=== PATIENT | female | born 1960 | race Caucasian/White ===

== ENCOUNTER 2023-04-26 12:34 | Outpatient (OUT) | payer OTHER, SELFPAY ==
--- NOTE | 2023-04-26 13:35 | P.CN_ITS ---
Consult Note: HPI Data of Consult Patient: new to practice Consult date: 04/26/23 Requesting Physician: Lucie Ham MD Primary Care Provider: ARIANE OLIVAS Consult Narrative Reason for consult: low back pain Narrative: this is a pleasant 62-year-old female who presents for evaluation. She has a long-standing history of low back pain that is worsened with standing and ambulation. She underwent a lumbar fusion greater than fifteen years ago, though she does not remember exactly which levels this was at. There is no recent imaging available for review. She engages in a course of provider directed home exercises, which she has completed for greater than three months. She also engages and chiropractic therapy. She has tried various medications, including Savella for her fibromyalgia, with limited relief. She otherwise denies adverse medication side effects or loss of bowel or bladder control. cc:: CC: Lucie Ham MD Review of Systems ROS Status of ROS 10 or more systems reviewed and unremarkable except as noted in history and below PFSH [facility] Medical History Meds Home Medications and Allergies Home Medications Medication Instructions Recorded Confirmed Type atenolol 25 mg tablet 25 mg PO .hs 04/26/23 04/26/23 History atorvastatin 20 mg tablet (Lipitor) 20 mg PO DAILY 04/26/23 04/26/23 History levothyroxine 50 mcg tablet 50 mcg PO DAILY 04/26/23 04/26/23 History (Euthyrox) milnacipran 50 mg tablet (Savella) 50 mg PO BID 04/26/23 04/26/23 History rizatriptan 10 mg tablet (Maxalt) 10 mg PO Q2H PRN migraine headache 04/26/23 04/26/23 History tamoxifen 20 mg tablet 20 mg PO DAILY 04/26/23 04/26/23 History trazodone 50 mg tablet 50 mg PO .hs 04/26/23 04/26/23 History Exam Constitutional Common normals: no apparent distress, oriented x3 and healthy appearing Respiratory Common normals: normal respiratory effort Effort & inspection: able to speak in complete sentences Back & Pelvis Other: tenderness to palpation throughout the lumbar spine and paraspinal musculature. Pain is elicited with flexion, extension, and lateral rotation of the lumbar spine. Facet loading maneuvers are positive bilaterally. Coordination remaiins intact. Hearing is nonantalgic. Extremity Common normals: normal to inspection Neuro Common normals: oriented x3, CN's II-XII intact bilaterally and no focal motor deficits Psych Common normals: mental status grossly normal and cooperative Assessment and Plan Assessment and Plan (1) Lumbago: (2) Lumbar postlaminectomy syndrome: (3) Fibromyalgia: Plan this is a pleasant 62-year-old female who presents for evaluation. she has failed physical and medical modalities, as listed above. Given her surgical history and her symptomatology, I would like her to undergo imaging to further assess. I will have her undergo an x-ray of the lumbar spine, sacrum, and bilateral hips. She is in agreement with this plan. Medications were reviewed, and no changes were made at this time. We discussed that once her back pain has been addressed, we could further discuss her migraines and fibromyalgia and treatment options. She expressed understanding. She will follow up after the imaging is complete.
== END 2023-04-26 12:35 | disposition home or self-care (01) ==
LOC: PM 12:35
PROVIDERS: PCP Internal Medicine; Visit Provider Anesthesiology
DX: M54.50 Low back pain, unspecified (principal); M96.1 Postlaminectomy syndrome, not elsewhere classified; M79.7 Fibromyalgia
CPT/HCPCS: G0463

== ENCOUNTER 2023-04-26 13:37 | Outpatient (OUT) | payer OTHER, SELFPAY ==
--- NOTE | 2023-04-26 13:46 | XR_ITS ---
[place] [id number] Patient Name: CRYSTAL WILLAMS MRN: [id number] date: 1960 Sex: F Assigned Patient Location: [facility] Current Patient Location: [facility] Accession/Order Number: [id number] Exam Date: 04/26/2023 13:55 Report Date: 04/26/2023 20:33 At the request of: ANDRI GIEDRAITIS Procedure: XR hip PEGGY EXAMINATION: XR hip PEGGY HISTORY: Bilateral hip pain COMPARISON: No relevant comparison available. FINDINGS: RIGHT FINDINGS: BONES: No acute fracture or dislocation. Mild degenerative osteoarthropathy. Lumbosacral fusion SOFT TISSUES: Negative. No visible soft tissue swelling. OTHER: Negative. LEFT FINDINGS: BONES: No acute fracture or dislocation. Mild degenerative osteoarthropathy SOFT TISSUES: Negative. No visible soft tissue swelling. OTHER: Negative. XR/XR hip PEGGY IMPRESSION: RIGHT CONCLUSION: Mild osteoarthritis LEFT CONCLUSION: Mild osteoarthritis Electronically authenticated by: TRACIE SOTO Date: 04/26/2023 20:33
--- NOTE | 2023-04-26 13:47 | XR_ITS ---
[facility] [place] [id number] Patient Name: CRYSTAL WILLAMS MRN: [id number] date: 1960 Sex: F Assigned Patient Location: [facility] Current Patient Location: [facility] Accession/Order Number: [id number] Exam Date: 04/26/2023 13:55 Report Date: 04/26/2023 20:36 At the request of: CLARE CRUZ Procedure: XR lumbar spine 6V w bending EXAMINATION: XR lumbar spine 6V w bending, XR sacrum coccyx min 2V HISTORY: low back pain, post lumbar laminectomy COMPARISON: No relevant comparison available. FINDINGS: BONES: 5 mm anterolisthesis of L5 in relation to S1. Normal alignment of sacrum. Mild spondylosis. Posterior decompression bilateral transpedicular fusion L5-S1 DISC SPACES: Interbody spacer L5-S1 PARASPINOUS: Negative. No paraspinous abnormality is seen. OTHER: Negative. XR/XR lumbar spine 6V w bending IMPRESSION: 5 mm anterolisthesis of L5 on S1 Lumbosacral fusion with no mechanical failure Electronically authenticated by: TRACIE SOTO Date: 04/26/2023 20:36
--- NOTE | 2023-04-26 13:47 | XR_ITS ---
[facility] [place] [id number] Patient Name: CRYSTAL WILLAMS MRN: [id number] date: 1960 Sex: F Assigned Patient Location: [facility] Current Patient Location: [facility] Accession/Order Number: [id number] Exam Date: 04/26/2023 13:55 Report Date: 04/26/2023 20:36 At the request of: CLARE OJEDARAPATIENCE Procedure: XR sacrum coccyx min 2V EXAMINATION: XR lumbar spine 6V w bending, XR sacrum coccyx min 2V HISTORY: low back pain, post lumbar laminectomy COMPARISON: No relevant comparison available. FINDINGS: BONES: 5 mm anterolisthesis of L5 in relation to S1. Normal alignment of sacrum. Mild spondylosis. Posterior decompression bilateral transpedicular fusion L5-S1 DISC SPACES: Interbody spacer L5-S1 PARASPINOUS: Negative. No paraspinous abnormality is seen. OTHER: Negative. XR/XR sacrum coccyx min 2V IMPRESSION: 5 mm anterolisthesis of L5 on S1 Lumbosacral fusion with no mechanical failure Electronically authenticated by: TRACIE SOTO Date: 04/26/2023 20:36
== END 2023-04-26 13:38 | disposition home or self-care (01) ==
LOC: RAD 13:39
PROVIDERS: PCP Internal Medicine; Visit Provider Anesthesiology
DX: M54.50 Low back pain, unspecified (principal); M96.1 Postlaminectomy syndrome, not elsewhere classified; M79.7 Fibromyalgia; M25.552 Pain in left hip; M25.551 Pain in right hip; Z98.1 Arthrodesis status; M16.0 Bilateral primary osteoarthritis of hip
CPT/HCPCS: 72114; 72220; 73522; G0463

== ENCOUNTER 2023-05-10 14:26 | Outpatient (OUT) | payer OTHER, SELFPAY ==
--- NOTE | 2023-05-10 15:44 | PM.CN ---
Consult Note: HPI Data of Consult Patient: known to practice within the last 3 years Consult date: 05/10/23 Requesting Physician: Lucie aHm MD Primary Care Provider: ARIANE OLIVAS Consult Narrative Reason for consult: Low back pain Narrative: this is a pleasant 62-year-old female who presents for assessment. She notes persistence of axial low back pain that is worsened with standing and ambulation. She recently underwent lumbar imaging, which is significant for spondylosis above the level of her fusion at L5-S1. She continues in a course of provider directed home exercises and chiropractic therapy, which she has done for over three months. She continues to utilize [id number] pain medications, which is utilized for over three months. She otherwise denies adverse medication side effects or loss of bowel or bladder control. cc:: CC: Lucie Ham MD Review of Systems ROS Status of ROS 10 or more systems reviewed and unremarkable except as noted in history and below [facility] Medical History Meds Home Medications and Allergies Home Medications Medication Instructions Recorded Confirmed Type atenolol 25 mg tablet 25 mg PO .hs 04/26/23 04/26/23 History atorvastatin 20 mg tablet (Lipitor) 20 mg PO DAILY 04/26/23 04/26/23 History levothyroxine 50 mcg tablet 50 mcg PO DAILY 04/26/23 04/26/23 History (Euthyrox) milnacipran 50 mg tablet (Savella) 50 mg PO BID 04/26/23 04/26/23 History rizatriptan 10 mg tablet (Maxalt) 10 mg PO Q2H PRN migraine headache 04/26/23 04/26/23 History tamoxifen 20 mg tablet 20 mg PO DAILY 04/26/23 04/26/23 History trazodone 50 mg tablet 50 mg PO .hs 04/26/23 04/26/23 History Exam Constitutional Common normals: no apparent distress, oriented x3 and healthy appearing Respiratory Common normals: normal respiratory effort Effort & inspection: able to speak in complete sentences Back & Pelvis Other: tenderness to palpation throughout the lumbar spine and paraspinal musculature. Pain is elicited with flexion, extension, and lateral rotation of the lumbar spine. Facet loading maneuvers are positive bilaterally. Coordination remains intact. Gait remains nonantalgic. Extremity Common normals: normal to inspection Neuro Common normals: oriented x3, CN's II-XII intact bilaterally and no focal motor deficits Psych Common normals: mental status grossly normal and cooperative Assessment and Plan Assessment and Plan (1) Lumbar postlaminectomy syndrome: (2) Lumbar spondylosis: Plan this is a pleasant 62-year-old female who presents for assessment. She has filled physical and medical modalities, as listed above. Imaging was reviewed, as noted above. Given her symptomatology and imaging findings, coupled with her failure to respond to greater than three months of conservative measures, it is prudent to attempt diagnostic bilateral L3-L4, 4?5 medial branch blocks under fluoroscopic guidance with the intention of proceeding to radiofrequency ablation. She is in agreement with this plan. Medications were reviewed, and no changes were made at this time. She will follow-up after the procedure is completed.
== END 2023-05-10 14:27 | disposition home or self-care (01) ==
LOC: PM 14:26
PROVIDERS: PCP Internal Medicine; Visit Provider Anesthesiology
DX: M47.816 Spondylosis without myelopathy or radiculopathy, lumbar region (principal); M96.1 Postlaminectomy syndrome, not elsewhere classified
CPT/HCPCS: G0463

== ENCOUNTER 2023-06-07 09:40 | Day surgery (SDC) | payer OTHER, SELFPAY ==
[2023-06-07 10:42] VITALS: BP 171/101; PULSE 83; RESP 16; TEMP 36.7; O2SAT 96
--- NOTE | 2023-06-07 10:45 | PC.NURSE ---
advised patient to follow up with PCP regarding high BP. Patient didn't take home BP med yet this am.
[2023-06-07 11:19] VITALS: BP 170/86; BP 170/91; PULSE 76; PULSE 78; RESP 20; O2SAT 95; O2SAT 96
[2023-06-07] MEDS: BUPIVACAINE HCL 0.25% PF 25 MG/10 ML VIAL 4 ML INJ (11:20)
[2023-06-07] MEDS: LIDOCAINE HCL 2% PF 100 MG/5 ML VIAL INJ (11:20)
[2023-06-07] MEDS: TRIAMCINOLONE ACETONIDE 40 MG/ML VIAL INJ (11:21)
--- NOTE | 2023-06-07 11:22 | W.PM.PROCNOT ---
Date of procedure: 06/07/23 Pre-op diagnosis: Lumbar spondylosis Post-op diagnosis: same as pre-op Procedure: Procedure: Bilateral L3-4, L4-5 medial branch block Medications: Bupivacaine 0.25% 4cc The patient was seen and examined in the preoperative holding area.? An informed consent was obtained and placed on the chart.? The patient was brought to the medical procedure unit and placed in the prone position.? A timeout was completed verifying correct patient, procedure site, positioning, plan, and special equipment.? Using aseptic technique, the needle was placed at left L3. Under direct fluoroscopic visualization a Quincke-tipped spinal needle was advanced to the junction of the superior articulating process with the transverse process at the designated medial branch segment.? Preceded by negative aspiration, the above-mentioned injectate was placed in 1 mL aliquots.? The procedure was repeated at left L4, 5.? The needle was removed and insertion site was covered. The same procedure, at the same levels, was completed on the right side. The patient was taken to the postprocedural recovery area and monitored for an appropriate length of time before found suitable for discharge in the company of a responsible adult. Anesthesia: Local Surgeon: Lucie Ham Pathology: none sent Condition: stable Disposition: no change
== END 2023-06-07 11:25 | disposition home or self-care (01) ==
PROVIDERS: PCP Internal Medicine; Visit Provider Anesthesiology
DX: M47.816 Spondylosis without myelopathy or radiculopathy, lumbar region (principal)
CPT/HCPCS: 64493; 64494

== ENCOUNTER 2023-06-24 09:07 | Outpatient (OUT) | payer OTHER, SELFPAY ==
--- NOTE | 2023-06-24 09:21 | PM.CN ---
Consult Note: HPI Data of Consult Patient: known to practice within the last 3 years Requesting Physician: Mariama Tony NP Primary Care Provider: ARIANE OLIVAS Consult Narrative Reason for consult: procedure follow up Narrative: Yumi Saravia a pleasant 62 year old female presents for evaluation of chronic low back pain. Recently underwent Bilateral L3-4, L4-5 medial branch block #1 with >80% pain relief and functional improvement immediately following and hours after the procedure. Today rating pain 2/10 and would like to discuss proceeding with MBB #2 working towards a thermal RFA under fluoroscopy. cc:: CC: Mariama Tony NP Review of Systems ROS Status of ROS 10 or more systems reviewed and unremarkable except as noted in history and below Musculoskeletal Reports: back pain PFSH PFSH Medical History Meds Home Medications and Allergies Home Medications Medication Instructions Recorded Confirmed Type atenolol 25 mg tablet 25 mg PO .hs 04/26/23 06/07/23 History atorvastatin 20 mg tablet (Lipitor) 20 mg PO DAILY 04/26/23 06/07/23 History levothyroxine 50 mcg tablet 50 mcg PO DAILY 04/26/23 06/07/23 History (Euthyrox) milnacipran 50 mg tablet (Savella) 50 mg PO BID 04/26/23 06/07/23 History rizatriptan 10 mg tablet (Maxalt) 10 mg PO Q2H PRN migraine headache 04/26/23 06/07/23 History tamoxifen 20 mg tablet 20 mg PO DAILY 04/26/23 06/07/23 History trazodone 50 mg tablet 50 mg PO .hs 04/26/23 06/07/23 History Allergies Allergy/AdvReac Type Severity Reaction Status Date / Time Sulfa (Sulfonamide Allergy Mild Unverified 06/07/23 10:39 Antibiotics) Exam Constitutional Documenting provider has reviewed patient's vital signs: yes Common normals: no apparent distress, oriented x3, healthy appearing, alert and well nourished General appearance: cooperative HENMT Common normals: normocephalic, hearing grossly normal bilaterally and moist oral mucous membranes Head and scalp: normocephalic Eye Common normals: PERRL Pupil: PERRL Neck & C-Spine Common normals: full ROM General: normal visual inspection Chest Common normals: inspection of chest normal Respiratory Common normals: normal respiratory effort, no retractions and no use of accessory muscles Back & Pelvis Lumbar spine/lower back: ROM limited, pain with ROM and straight leg raise negative bilaterally Other: predominately axial low back pain without radiculopathy positive facet loading bilaterally Extremity Common normals: normal to inspection and full ROM Neuro Common normals: oriented x3, CN's II-XII intact bilaterally, moves all extremities, no focal motor deficits, no sensory deficits noted and deep tendon reflexes 2+ bilaterally Sensorium/orientation: alert Motor exam: strength 5/5 throughout and no movement abnormalities noted Psych Common normals: mental status grossly normal, thought process normal, cooperative, affect normal, speech normal and activity/motor behavior normal Speech: normal speech Thought process: normal thought process Results Additional Findings Additional findings: I have checked an OARRS report on this patient today and there are no aberrancies noted in the prescribing history.?? A drug screen was completed and reviewed within the last year, and if there has not been a drug screen completed we ordered one today to monitor higher risk, state monitored pain medication use. As part of providing excellent, safe, comprehensive care, the following was completed at our patient's visit: 1. A medication reconciliation and review to ensure accurate knowledge of current/active medications, including asking our patients to inform us about any wjux-tzn-qianuiy medications or herbal remedies/nutritional supplements/alternative remedies. 2. A review to specifically ensure our patients have had annual screening for: elevated body mass index (BMI), tobacco use, screening for depression, and screening for unhealthy alcohol use. When screening is concerning, patients are provided with education and the specific recommendation to discuss the concerning health issue and treatment options with their primary care provider. Assessment and Plan Assessment and Plan (1) Lumbar spondylosis: Assessment and Plan: The patient has had over 3 months of moderate to severe low back pain with functional impairment and inadequate response to conservative care including NSAIDS (unless there are contraindication such as concurrent blood thinners), multiple oral or topical pain medications, and home exercise program/physical therapy.? Patient has completed >6 weeks of guided home exercise program and/or formal physical therapy program without relief of their symptoms.? I have reviewed the imaging of the lumbar and no red flags were identified.? The imaging reveals radiographic findings consistent with lumbar facet arthritis The Oswestry Disability Index was completed, and the patient scored a 16%.? The patient noted the following:?? mild pain, pain with sitting and standing for extended periods of time, pain that impacts travel and social life We discussed the risks and benefits of the procedure with the patient, and we are not planning on using sedation as outlined in the guidelines from Medicare unless there is a documented reason that sedation would be strongly recommended.? The procedure will be completed with fluoroscopic guidance.? (2) Fibromyalgia: (3) Lumbar postlaminectomy syndrome: (4) Lumbago: Plan continue current medication regimen continue HEP proceed with bilateral L3/4 L4/5 MBB #2 under fluoroscopy working towards thermal RFA f/u 1 week after injection
== END 2023-06-24 09:08 | disposition home or self-care (01) ==
LOC: PM 09:07
PROVIDERS: PCP Internal Medicine; Visit Provider Nurse Practitioner
DX: M47.816 Spondylosis without myelopathy or radiculopathy, lumbar region (principal)
CPT/HCPCS: G0463

== ENCOUNTER 2023-07-26 08:51 | Day surgery (SDC) | payer OTHER, SELFPAY ==
[2023-07-26 09:41] VITALS: BP 124/78; PULSE 84; RESP 16; TEMP 36.4; O2SAT 96
[2023-07-26 10:04] VITALS: BP 135/71; PULSE 71; RESP 16; O2SAT 93
[2023-07-26] MEDS: LIDOCAINE HCL 2% PF 100 MG/5 ML VIAL INJ (10:06)
[2023-07-26] MEDS: TRIAMCINOLONE ACETONIDE 40 MG/ML VIAL INJ (10:07)
[2023-07-26] MEDS: BUPIVACAINE HCL 0.25% PF 25 MG/10 ML VIAL 8 ML INJ (10:08)
[2023-07-26 10:09] VITALS: BP 132/74; PULSE 66; RESP 16; O2SAT 93
--- NOTE | 2023-07-26 10:09 | W.PM.PROCNOT ---
Date of procedure: 07/26/23 Pre-op diagnosis: Lumbar spondylosis Post-op diagnosis: same as pre-op Procedure: Procedure: Bilateral L3-4, L4-5 medial branch block Medications: Bupivacaine 0.25% 4cc The patient was seen and examined in the preoperative holding area.? An informed consent was obtained and placed on the chart.? The patient was brought to the medical procedure unit and placed in the prone position.? A timeout was completed verifying correct patient, procedure site, positioning, plan, and special equipment.? Using aseptic technique, the needle was placed at left L3. Under direct fluoroscopic visualization a Quincke-tipped spinal needle was advanced to the junction of the superior articulating process with the transverse process at the designated medial branch segment.? Preceded by negative aspiration, the above-mentioned injectate was placed in 1 mL aliquots.? The procedure was repeated at left L4, 5.? The needle was removed and insertion site was covered. The same procedure, at the same levels, was completed on the right side. The patient was taken to the postprocedural recovery area and monitored for an appropriate length of time before found suitable for discharge in the company of a responsible adult. Anesthesia: Local Surgeon: Lucie Ham Pathology: none sent Condition: stable Disposition: no change
== END 2023-07-26 10:12 | disposition home or self-care (01) ==
PROVIDERS: PCP Internal Medicine; Visit Provider Anesthesiology
DX: M47.816 Spondylosis without myelopathy or radiculopathy, lumbar region (principal)
CPT/HCPCS: 64493; 64494

== ENCOUNTER 2023-08-04 08:42 | Outpatient (OUT) | payer OTHER, SELFPAY ==
--- NOTE | 2023-08-04 09:11 | P.CN_ITS ---
Consult Note: HPI Data of Consult Patient: known to practice within the last 3 years Requesting Physician: Mariama Tony NP Primary Care Provider: ARIANE OLIVAS Consult Narrative Reason for consult: f/u Narrative: Yumi Mendoza a pleasant 62 year old female presents for evaluation and management of chronic low back pain without radiculopathy. Today rating pain 3/10 in low back constantly, pain is worse with pushing pulling standing walking bending twisting, improved with rest and lying down. Patient recently had a bilateral L3/4 L4/5 MBB #2 with 100% pain relief and functional improvement immediately after and hours following. Patient has failed to respond to conservative treatments and PT, chiropractor. cc:: CC: Mariama Tony NP Review of Systems ROS Status of ROS 10 or more systems reviewed and unremarkable except as noted in history and below Musculoskeletal Reports: back pain and joint pain (right SIJ, bilateral knees) PFSH PFSH Medical History Meds Home Medications and Allergies Home Medications Medication Instructions Recorded Confirmed Type atenolol 25 mg tablet 25 mg PO .hs 04/26/23 07/26/23 History atorvastatin 20 mg tablet (Lipitor) 20 mg PO DAILY 04/26/23 07/26/23 History levothyroxine 50 mcg tablet 50 mcg PO DAILY 04/26/23 07/26/23 History (Euthyrox) milnacipran 50 mg tablet (Savella) 50 mg PO BID 04/26/23 07/26/23 History rizatriptan 10 mg tablet (Maxalt) 10 mg PO Q2H PRN migraine headache 04/26/23 07/26/23 History tamoxifen 20 mg tablet 20 mg PO DAILY 04/26/23 07/26/23 History trazodone 50 mg tablet 50 mg PO .hs 04/26/23 07/26/23 History Allergies Allergy/AdvReac Type Severity Reaction Status Date / Time Sulfa (Sulfonamide Allergy Mild Verified 07/26/23 09:35 Antibiotics) Exam Constitutional Documenting provider has reviewed patient's vital signs: yes Common normals: no apparent distress, oriented x3, healthy appearing, alert and well nourished General appearance: cooperative HENMT Common normals: normocephalic, hearing grossly normal bilaterally and moist oral mucous membranes Head and scalp: normocephalic Eye Common normals: PERRL Pupil: PERRL Neck & C-Spine Common normals: full ROM General: normal visual inspection Chest Common normals: inspection of chest normal Respiratory Common normals: normal respiratory effort, no retractions and no use of accessory muscles Back & Pelvis Lumbar spine/lower back: normal to inspection, ROM limited, pain with ROM and straight leg raise negative bilaterally Sacroiliac joints: SI joint(s) abnormal (right pain over PSIS, positive gaenslens, thigh thrust, FABERs) Extremity Common normals: normal to inspection and full ROM Neuro Common normals: oriented x3, CN's II-XII intact bilaterally, moves all extremities, no focal motor deficits, no sensory deficits noted, deep tendon reflexes 2+ bilaterally and gait normal Sensorium/orientation: alert Motor exam: strength 5/5 throughout and no movement abnormalities noted Psych Common normals: mental status grossly normal, thought process normal, cooperative, affect normal, speech normal and activity/motor behavior normal Speech: normal speech Thought process: normal thought process Results Additional Findings Additional findings: I have checked an OARRS report on this patient today and there are no aberrancies noted in the prescribing history.?? A drug screen was completed and reviewed within the last year, and if there has not been a drug screen completed we ordered one today to monitor higher risk, state monitored pain medication use. As part of providing excellent, safe, comprehensive care, the following was completed at our patient's visit: 1. A medication reconciliation and review to ensure accurate knowledge of current/active medications, including asking our patients to inform us about any [id number] medications or herbal remedies/nutritional suppleme nts/alternative remedies. 2. A review to specifically ensure our patients have had annual screening for: elevated body mass index (BMI), tobacco use, screening for depression, and screening for unhealthy alcohol use. When screening is concerning, patients are provided with education and the specific recommendation to discuss the concerning health issue and treatment options with their primary care provider. Assessment and Plan Assessment and Plan (1) Lumbar spondylosis: Assessment and Plan: The patient has had over 3 months of moderate to severe low back pain with functional impairment and inadequate response to conservative care including NSAIDS (unless there are contraindication such as concurrent blood thinners), multiple oral or topical pain medications, and home exercise program/physical therapy.? Patient has completed >6 weeks of guided home exercise program and/or formal physical therapy program without relief of their symptoms.? I have reviewed the imaging of the lumbar spine and no red flags were identified.? The imaging reveals radiographic findings consistent with lumbar spondylosis? The Oswestry Disability Index was completed, and the patient scored a 28%.? The patient noted the following:?? moderate pain, pain with lifting heavy weights, pain that prevents her from standing more than 1 hour, pain that interrupts sleep, pain that restricts social life and travel We discussed the risks and benefits of the procedure with the patient. ?The procedure will be completed with fluoroscopic guidance.? (2) Lumbago: Plan -continue HEP, has completed greater than 6 weeks of provider guided exercises without benefit -continue current medications -proceed with bilateral L3-4 L4-5 thermal RFA under fluoroscopy -f/u 1 month after
== END 2023-08-04 08:43 | disposition home or self-care (01) ==
LOC: PM 08:43
PROVIDERS: PCP Internal Medicine; Visit Provider Nurse Practitioner
DX: M47.816 Spondylosis without myelopathy or radiculopathy, lumbar region (principal)
CPT/HCPCS: G0463

== ENCOUNTER 2023-09-06 08:57 | Day surgery (SDC) | payer OTHER, SELFPAY ==
[2023-09-06 09:53] VITALS: BP 137/86; PULSE 76; RESP 16; TEMP 36.5; O2SAT 98
[2023-09-06 10:31] VITALS: BP 149/71; PULSE 75; RESP 18; O2SAT 91
[2023-09-06] MEDS: BUPIVACAINE HCL 0.25% PF 25 MG/10 ML VIAL 4 ML INJ (10:43)
[2023-09-06] MEDS: TRIAMCINOLONE ACETONIDE 40 MG/ML VIAL 80 MG INJ (10:43)
[2023-09-06 10:46] VITALS: BP 153/82; PULSE 75; RESP 18; O2SAT 95
--- NOTE | 2023-09-06 10:46 | P.ON_ITS ---
Date of procedure: 09/06/23 Pre-op diagnosis: Lumbar spondylosis Post-op diagnosis: same as pre-op Procedure: Procedure: Bilateral L3-4, L4-5 radiofrequency ablation Medications: Bupivacaine 0.25% 4cc, kenalog 80mg, lidocaine 2% 5cc The patient was seen and examined in the preoperative holding area.? The site was marked.? Written informed consent was obtained and placed on the chart.? The patient was brought to the medical procedure unit and placed in the prone position.? A timeout was completed verifying correct patient, procedure, positioning, and special requirements.? The skin overlying the target points, the designated medial branch, were prepped and draped in the usual sterile fashion.? The target point was achieved with a 20-gauge 15 cm with a 10 mm curved active tip radiofrequency cannula under direct fluoroscopic visualization.? The needle was inserted at level L3 on the right side. Needle tip position was confirmed with lateral fluoroscopic position.? Motor stimulation was carried out at 2 Hz up to 5 volts with the absence of extremity activity.? This was repeated at level L4, 5 on right side.?? Sensory stimulation was carried out.? Concordant pain was realized at the above- mentioned sites.? Then radiofrequency lesioning was carried out times 90 seconds at 80 degrees times 2 lesions at each level.? The radiofrequency probe was removed prior to cannula removal.? The above-mentioned injectate was placed in 1 mL increments.? The needle was removed. The same procedure, with the same steps, was then completed on the left side at the same levels. Insertion sites were covered.? The patient was taken to the postoperative recovery area and monitored for an appropriate length of time before being found suitable for discharge in the company of a responsible adult. Anesthesia: Local Surgeon: Lucie Ham Pathology: none sent Condition: stable Disposition: no change
[2023-09-06] MEDS: LIDOCAINE HCL 2% 400 MG/20 ML MDV 18 ML INJ (10:47)
== END 2023-09-06 10:50 | disposition home or self-care (01) ==
PROVIDERS: PCP Internal Medicine; Visit Provider Anesthesiology
DX: M47.816 Spondylosis without myelopathy or radiculopathy, lumbar region (principal)
CPT/HCPCS: 64635; 64636

== ENCOUNTER 2023-09-30 08:50 | Outpatient (OUT) | payer OTHER, SELFPAY ==
--- NOTE | 2023-09-30 09:48 | P.CN_ITS ---
Consult Note: HPI Data of Consult Patient: known to practice within the last 3 years Requesting Physician: Mariama Tony NP Primary Care Provider: ARIANE OLIVAS Consult Narrative Reason for consult: f/u Narrative: Yumi Saravia a pleasant 62 year old female presents for evaluation and management of chronic low back pain without radiculopathy. Today rating pain 2/10 in low back constantly, pain is worse with pushing pulling standing walking bending twisting, improved with rest and lying down. Patient recently had a bilateral L3/4 L4/5 thermal RFA with 30% ongoing relief. cc:: CC: Mariama Tony NP Review of Systems ROS Status of ROS 10 or more systems reviewed and unremark able except as noted in history and below [facility] Medical History (Updated 08/24/23 @ 16:12 by Rebecca Lugo) H/O malignant neoplasm of breast ?Z85.3 - Personal history of malignant neoplasm of breast (ICD-10) High cholesterol ?E78.00 - Pure hypercholesterolemia, unspecified (ICD-10) Hypertension ?I10 - Essential (primary) hypertension (ICD-10) Surgical History S/P lumbar fusion ?Z98.1 - Arthrodesis status (ICD-10) H/O arthroscopy of knee ?Z98.890 - Other specified postprocedural states (ICD-10) Hx of tonsillectomy ?Z90.89 - Acquired absence of other organs (ICD-10) H/O: hysterectomy ?Z90.710 - Acquired absence of both cervix and uterus (ICD-10) S/P ?Z98.891 - History of uterine scar from previous surgery (ICD-10) S/P breast lumpectomy ?Z98.890 - Other specified postprocedural states (ICD-10) Meds Home Medications and Allergies Home Medications Medication Instructions Recorded Confirmed Type atenolol 25 mg tablet 25 mg PO .hs 04/26/23 09/06/23 History atorvastatin 20 mg tablet (Lipitor) 20 mg PO DAILY 04/26/23 09/06/23 History levothyroxine 50 mcg tablet 50 mcg PO DAILY 04/26/23 09/06/23 History (Euthyrox) milnacipran 50 mg tablet (Savella) 50 mg PO BID 04/26/23 09/06/23 History rizatriptan 10 mg tablet (Maxalt) 10 mg PO Q2H PRN migraine headache 04/26/23 09/06/23 History tamoxifen 20 mg tablet 20 mg PO DAILY 04/26/23 09/06/23 History trazodone 50 mg tablet 50 mg PO .hs 04/26/23 09/06/23 History Allergies Allergy/AdvReac Type Severity Reaction Status Date / Time Sulfa (Sulfonamide Allergy Mild Verified 09/06/23 09:48 Antibiotics) Exam Constitutional Documenting provider has reviewed patient's vital signs: yes Common normals: no apparent distress, oriented x3, healthy appearing, alert and well nourished General appearance: cooperative HENMT Common normals: normocephalic, hearing grossly normal bilaterally and moist oral mucous membranes Head and scalp: normocephalic Eye Common normals: PERRL Pupil: PERRL Neck & C-Spine Common normals: full ROM General: normal visual inspection Chest Common normals: inspection of chest normal Respiratory Common normals: normal respiratory effort, no retractions and no use of accessory muscles Back & Pelvis Lumbar spine/lower back: normal to inspection and straight leg raise negative bilaterally Other: mild pain with facet loading Extremity Common normals: normal to inspection and full ROM Neuro Common normals: oriented x3, CN's II-XII intact bilaterally, moves all extremities, no focal motor deficits, no sensory deficits noted and deep tendon reflexes 2+ bilaterally Sensorium/orientation: alert Motor exam: strength 5/5 throughout and no movement abnormalities noted Psych Common normals: mental status grossly normal, thought process normal, cooperative, affect normal, speech normal and activity/motor behavior normal Speech: normal speech Thought process: normal thought process Results Additional Findings Additional findings: I have checked an [facility] report on this patient today and there are no aberrancies noted in the prescribing history.?? A drug screen was completed and reviewed within the last year, and if there has not been a drug screen completed we ordered one today to monitor higher risk, state monitored pain medication use. As part of providing excellent, safe, comprehensive care, the following was completed at our patient's visit: 1. A medication reconciliation and review to ensure accurate knowledge of current/active medications, including asking our patients to inform us about any [id number] medications or herbal remedies/nutritional supplements/alternative remedies. 2. A review to specifically ensure our patients have had annual screening for: elevated body mass index (BMI), tobacco use, screening for depression, and screening for unhealthy alcohol use. When screening is concerning, patients are provided with education and the specific recommendation to discuss the concerning health issue and treatment options with their primary care provider. Assessment and Plan Assessment and Plan (1) Lumbar spondylosis: (2) Fibromyalgia: Plan continue tylenol PRN start NSAIDs otc PRN, take with food f/u 1 month, still in the healing phase after lumbar RFAs
--- OUTSIDE RECORDS SUMMARY | 2023-09-30 10:37 | XMS_ITS | CCD ---
Author Name Unknown Address [address] [place] [address] Organization [facility] Care Team Providers Care Surface Plate Inspector Name Role Phone Ariane Olivas Primary Care Provider EL CHAMPION Attending Unavailable EL CHAMPION Consulting Unavailable EL CHAMPION Admitting Unavailable ARIANE OLIVAS Primary Care Unavailable Ariane Olivas Primary Care Provider Raysa EMERY, Ariane Primary Care Provider Indra SILVA, Georgina Unavailable Ariane Olivas MD Primary Care Provider Raysa EMERY, Ariane Primary Care Provider Indra HAM, Georgina Unavailable Ariane Olivas MD Primary Care Provider Indra SILVA, Georgina Unavailable ARIANE OLIVAS Primary Care Unavailable JUS TORRES Referring Unavailable ARIANE OLIVAS Primary Care Unavailable ARIANE OLIVAS Referring Unavailable ARIANE OLIVAS Primary Care Unavailable JUS TORRES Referring Unavailable ARIANE OLIVAS Primary Care Unavailable STASIK, GEORGIANA L Referring Unavailable Raysa EMERY, Ariane Primary Care Provider [phone] Indra SILVA, Georgina Unavailable ARIANE OLIVAS Primary Care Unavailable ARIANE DAWSON Attending Unavailable SELF, SELF Referring Unavailable ARIANE OLIVAS Primary Care Unavailable ARIANE OLIVAS Referring Unavailable STASIK, GEORGIANA L Attending Unavailable ARIANE OLIVAS Primary Care Unavailable ARIANE OLIVAS Referring Unavailable STASIK, GEORGIANA L Attending Unavailable ARIANE OLIVAS Primary Care Unavailable ARIANE OLIVAS Referring Unavailable STASIK, GEORGIANA L Attending Unavailable Giedraitis , Lucie Ramon Attending Unavailable Gieditis , Lucie Ramon Attending Unavailable Gierrolitis , Lucie Ramon Attending Unavailable Gieditis , Lucie Ramon Attending Unavailable Gieditis , Lucie Ramon Attending Unavailable Allergies Allergy Classification Reported Allergen(s) Allergy Type Date of Onset Reaction(s) Facility (20 sources) Sulfonamides (Antibiotic) Propensity to adverse reactions to drug 3 Other (See Comments) [employer] Work Phone: (13 sources) Meperidine Drug Allergy 0 Nausea And Vomiting [facility] [place] (4 sources) Sulfonamides (Antibiotic) Propensity to adverse reactions to drug 3 Other (See Comments) [facility] Medications Current Medications Medication Drug Class(es) Dates Sig (Normalized) Sig (Original) Acetaminophen / HYDROcodone (6 sources) Opioid Agonist Start: 12-19-2019 End: 12-19-2019 HYDROcodone-acetam inophen (NORCO) 5-325 MG per tablet 1 tablet Start: 12-17-2019 End: 12-22-2019 take 1 tablet by mouth every six hours as needed for pain, then take 1 tablet by mouth as needed for pain HYDROcodone-acetaminophen (NORCO) 5-325 MG per tablet Indications: Kidney stone Take 1 tablet by mouth every 6 hours as needed for Pain for up to 5 days. Intended supply: 5 days. Take lowest dose possible to manage pain 20 tablet 0 12/17/2019 12/22/2019 Start: 12-17-2019 hydrocodone-ac etaminophen (NORCO) tablet 5-325 mg (STARTER PACK) Ascorbic Acid (20 sources) Vitamin C take 1 tablet by enoch th once daily vitamin C (ASCORBIC ACID) 500 MG tablet Take 1 tablet by mouth daily 0 Active take 1 tablet by mouth once whit y vitamin C (ASCORBIC ACID) 500 MG tablet Take 500 mg by mouth daily 0 Active Ascorbic Acid (V ITAMIN C PO) Take by mouth. 0 Active ascorbic acid 60 mg / beta carotene 5000 unt / copper sulfate 40 mg / dl-alpha tocopheryl acetate 30 unt / sodium selenite 0.04 mg / zinc oxide 40 mg oral tablet (9 sources) Vitamin C take 1 tablet by mouth once daily Multiple Vitamins-Minerals (THERAPEUTIC MULTIVITAMIN-MINERALS) tablet Take 1 tablet by mouth daily 0 Active atenolol 25 mg oral tablet (20 sources) beta-Adrenergic Isidro Start: 019 take 1 tablet by mouth once daily atenolol (TENORMIN) 25 MG tablet Take 1 tablet by mouth daily 90 tablet 3 04/01/2022 Active atorvastatin 20 mg oral tablet (6 sources) HMG-CoA Reductase Inhibitor Start: 022 take 1 tablet by mouth once daily atorvastatin (LIPITOR) 20 MG tablet Take 1 tablet by mouth daily 90 tablet 3 02/06/2022 Active Start: 11-08-2020 take 1 tablet by enoch th once daily atorvastatin (LIPITOR) 20 MG tablet Take 1 tablet by mouth daily 90 tablet 3 11/08/2020 Active calcium chloride 0.0014 meq/ ml / potassium chloride 0.004 meq/ml / sodium chloride 0.103 meq/ml / sodium lactate 0.028 meq/ml injectable solution (3 sources) Start: 08-27-2020 lactated ringe rs infusion Start: 12-19-2019 lactated ringe rs infusion cholecalciferol 0.125 mg oral tablet (3 sources) Vitamin D vitamin D-3 (CHOLECALCIFEROL) 125 MCG (5000 UT) TABS Take by mouth 0 Active clobetasol propionate 0.0005 mg/mg topical ointment (2 sources) Corticosteroid Start : 06-07 clobetasol (TEMOVATE) 0.05 % ointment Apply topically 2 times daily. 1 Tube 1 06/07/2018 Active docusate sodium 100 mg oral capsule (17 sources) Start : 12-17 take 1 capsule by mouth three times daily as needed for constipation docusate sodium (COLACE) 100 MG capsule Indications: Constipation due to opioid therapy Take 1 capsule by mouth 3 times daily as needed for Constipation 90 capsule 0 12/18/2019 Active escitalopram 10 mg oral tablet (2 sources) Serotonin Reuptake Inhibitor Start : 01-12 escitalopram (LEXAPRO) 10 MG tablet estradiol 1 mg oral tablet (11 sources) Estrogen Start : 09-18 take 1 tablet by mouth once daily estradiol (ESTRACE) 1 MG tablet Indications: Menopause Take 1 tablet by mouth daily 90 tablet 3 12/27/2019 Active 2 ml fentaNYL 0.05 mg/ml injection (3 sources) Opioid Agonist Start : 12-18 fentaNYL (SUBLIMAZE) injection 50 mcg Start: 12-17-2019 End: 12-17-2019 fentaNYL (SUBLIMAZE) injecti on 50 mcg Start: 12-17-2019 End: 12-17-2019 fentaNYL (SUBLIMAZE) injecti on 50 mcg fluorometholone 1 mg/ml ophthalmic suspension (1 source) Corticosteroid Start: 09-28-2023 take 1 drop(s) into the eye(s) at bedtime fluorometholone 0.1 % Suspension ophthalmic suspension Place 1 drop in both eyes at bedtime. 10 mL 1 09/28/2023 Active FLUoxetine 20 mg oral capsule (2 sources) Serotonin Reuptake Inhibitor Start: 12-17-2015 FLUoxetine (PROZAC) 20 MG capsule ibuprofen 800 mg oral tablet (19 sources) Nonsteroidal Anti-inflammatory Drug Start: 02-11-2021 take 1 tablet by mouth twice daily as needed for pain ibuprofen (ADVIL;MOTRIN) 800 MG tablet Take 1 tablet by mouth 2 times daily as needed (Left shoulder pain) 60 tablet 1 02/11/2021 Active Start: 12-17-2019 take 1 tablet by enoch th every eight hours as needed for pain ibuprofen (ADVIL;MOTRIN) 800 MG tablet Take 1 tablet by mouth every 8 hours as needed for Pain 30 tablet 0 12/17/2019 Active latanoprost 0.05 mg/ml ophthalmic solution (3 sources) Prostaglandin Analog Start: 05-13-2022 take 1 drop(s) into the eye(s) at bedtime latanoprost (XALATAN) 0.005 % ophthalmic solution USE 1 DROP INTO BOTH EYES AT BEDTIME DIRECTED 0 05/13/2022 Active Latanoprost 0.00 5 % Solution ophthalmic solution Place in both eyes At bedtime. 0 Active letrozole 2.5 mg oral tablet (2 sources) Aromatase Inhibitor Start: 01-25-2020 take 1 tablet by mouth once daily letrozole (FEMARA) 2.5 MG tablet Take 2.5 mg by mouth daily 0 01/25/2020 Active levothyroxine sodium 0.025 mg oral tablet (3 sources) l-Thyroxine Start: 01-29-2023 take 1 tablet by mouth once daily before breakfast Levothyroxine 25 MCG tablet Indications: Subclinical hypothyroidism , Anxiety and depression Take 1 tablet by mouth every morning before breakfast. 0 01/29/2023 Active Start: 01-13-2023 take 1 tablet by enoch th once daily levothyroxine (SYNTHROID) 50 MCG tablet Take 1 tablet by mouth daily 90 tablet 1 01/13/2023 Active meloxicam 15 mg oral tablet (1 source) Nonsteroidal Anti-inflammatory Drug Start: 09-14-2022 End: 10-05-2022 take 1 tablet by mouth once daily meloxicam (MOBIC) 15 MG tablet Take 1 tablet by mouth daily for 21 days 21 tablet 0 09/14/2022 10/05/2022 Active milnacipran hydrochloride 25 mg oral tablet (2 sources) Serotonin and Norepinephrine Reuptake Inhibitor Start: 01-19-2023 Milnacipran HCl (Savella) 25 MG tablet Indications: Anxiety and depression Take 1 tablet by mouth 2 times daily. Start with 1 tablet daily x 7 days, then increase to 2 times daily 60 tablet 1 01/19/2023 Active Multiple Vitamins-Minerals (THERAPEUTIC MULTIVITAMIN-MINERA LS) tablet (8 sources) take 1 tablet by mouth once daily Multiple Vitamins-Mineral s (THERAPEUTIC MULTIVITAMIN-MIN ERALS) tablet Take 1 tablet by mouth daily 0 Suspended take 1 tablet by mouth once whit y Multiple Vitamins-Minerals (THERAPEUTIC MULTIVITAMIN-MINERALS) tablet Take 1 tablet by mouth daily 0 Active nitrofurantoin, macrocrystals 25 mg / nitrofurantoin, monohydrate 75 mg oral capsule (1 source) Nitrofuran Antibacterial Start: 08-20-2020 End: 08-30-2020 take 1 capsule by mouth twice daily nitrofurantoin, macrocrystal-monohydrate, (MACROBID) 100 MG capsule Take 1 capsule by mouth 2 times daily for 10 days 20 capsule 0 08/20/2020 08/30/2020 Active nortriptyline 50 mg oral capsule (20 sources) Tricyclic Antidepressant Start: 01-13-2023 take 1 capsule by mouth once daily nortriptyline (PAMELOR) 50 MG capsule Indications: Chronic insomnia Take 1 capsule by mouth nightly 90 capsule 3 01/13/2023 Active Start: 10-29-2022 take 2 capsules by m outh once daily nortriptyline (PAMELOR) 25 MG capsule TAKE 2 CAPSULES BY MOUTH EVERY DAY AT NIGHT 180 capsule 2 10/29/2022 Active Start: 10-31-2021 take 2 capsules by m outh once daily nortriptyline (PAMELOR) 25 MG capsule Take 2 capsules by mouth nightly 180 capsule 3 10/31/2021 Active Start: 11-08-2020 take 2 capsules by m outh once daily nortriptyline (PAMELOR) 25 MG capsule Take 2 capsules by mouth nightly 180 capsule 3 11/08/2020 Active Start: 11-06-2019 take 2 capsules by m outh once daily nortriptyline (PAMELOR) 25 MG capsule Take 2 capsules by mouth nightly 180 capsule 3 02/05/2020 Active 2 ml ondansetron 2 mg/ml injection (20 sources) Serotonin-3 Receptor Antagonist Start: 12-19-2019 End: 12-19-2019 ondansetron (ZOFRAN) injection 4 mg Start: 12-17-2019 take 1 tablet by enoch th every eight hours as needed for nausea ondansetron (ZOFRAN ODT) 4 MG disintegrating tablet Take 1 tablet by mouth every 8 hours as needed for Nausea 20 tablet 0 12/17/2019 Active Start: 12-17-2019 End: 12-17-2019 ondansetron (ZOFRAN) injecti on 4 mg 24 hr oxybutynin chloride 10 mg extended release oral tablet (1 source) Cholinergic Muscarinic Antagonist Start: 11-18-2021 take 1 tablet by mouth once daily oxybutynin (DITROPAN-XL) 10 MG extended release tablet Indications: Urinary frequency Take 1 tablet by mouth daily 30 tablet 3 11/18/2021 Active polyethylene glycol 3350 68354 mg powder for oral solution (6 sources) Osmotic Laxative Start: 12-18-2019 End: 01-17-2020 take 17 g by mouth once daily polyethylene glycol (GLYCOLAX) powder Indications: Constipation due to opioid therapy Take 17 g by mouth daily 1530 g 1 12/18/2019 01/17/2020 Active polyvinyl alcohol 0.014 ml/ml / povidone 6 mg/ml ophthalmic solution (1 source) Polyvinyl Alcohol-Povidone PF 1.4-0.6 % Solution ophthalmic solution Place 1 drop in both eyes as needed for Dry Eyes. 0 Active rizatriptan 10 mg disintegrating oral tablet (1 source) Serotonin-1b and Serotonin-1d Receptor Agonist take 1 tablet by mouth every two hours rizatriptan 10 MG Tab Dispersible tablet Take 1 tablet by mouth. May repeat in 2 hours if needed, max daily dose 30 mg 0 Active 3 ml sodium chloride 9 mg/ml injection (7 sources) Start: 08-27-2020 sodium chloride flush 0.9 % injection 10 mL Start: 08-27-2020 sodium chlorid e flush 0.9 % injection 10 mL Start: 12-23-2019 sodium chlorid e flush 0.9 % injection 10 mL Start: 12-19-2019 sodium chlorid e flush 0.9 % injection 10 mL Start: 12-19-2019 sodium chlorid e flush 0.9 % injection 10 mL Start: 12-17-2019 End: 12-17-2019 0.9 % sodium chloride bolus SUMAtriptan 20 mg/actuat nasal spray (3 sources) Serotonin-1b and Serotonin-1d Receptor Agonist Start: 01-09-2021 SUMAtriptan (IMITREX) 20 MG/ACT nasal spray INSTILL 1 PUFF AT ONSET OF MIGRAIN MAY REPEAT AFTER 2HRS X 1 WEEK MAX 2 DOSES IN 24HRS 0 01/09/2021 Active tamoxifen 20 mg oral tablet (15 sources) Estrogen Agonist/Antagonist Start: 03-24-2023 End: 07-05-2023 take 1 tablet by mouth once daily tamoxifen 20 MG tablet Take 1 tablet by mouth daily. Dx C50.919 90 tablet 3 07/05/2023 Active Start: 12-02-2021 take 1 tablet by enoch th once daily tamoxifen (NOLVADEX) 20 MG tablet TAKE 1 TABLET BY MOUTH DAILY. DX C50.919 0 05/20/2022 Active Start: 05-23-2020 take 1 tablet by enoch th once daily tamoxifen (NOLVADEX) 20 MG tablet Take 20 mg by mouth daily 0 05/23/2020 Active tamsulosin hydrochloride 0.4 mg oral capsule (19 sources) alpha-Adrenergic Isidro Start: 12-17-2019 End: 12-22-2019 take 1 capsule by mouth once daily tamsulosin (FLOMAX) 0.4 MG capsule Indications: Ureteral stone with hydronephrosis Take 1 capsule by mouth daily 30 capsule 0 12/18/2019 Active topiramate 50 mg oral tablet (20 sources) Start: 12-18-2019 take 1 tablet by mouth once daily topiramate (TOPAMAX) 50 MG tablet Take 1 tablet by mouth daily 90 tablet 3 12/18/2019 Active Start: 02-22-2019 take 1 tablet by enoch th once daily topiramate (TOPAMAX) 50 MG tablet Take 1 tablet by mouth daily 90 tablet 2 02/22/2019 Active traMADol hydrochloride 50 mg oral tablet (20 sources) Opioid Agonist Start: 04-07-2022 End: 05-07-2022 take 1 tablet by mouth twice daily as needed for pain traMADol (ULTRAM) 50 MG tablet Indications: Chronic bilateral thoracic back pain Take 1 tablet by mouth 2 times daily as needed for Pain for up to 30 days. 60 tablet 0 04/07/2022 05/07/2022 Active Start: 07-29-2020 End: 08-28-2020 take 1 tablet by mouth twice daily traMADol (ULTRAM) 50 MG tablet Indications: Chronic bilateral thoracic back pain Take 1 tablet by mouth 2 times daily for 30 days. 60 tablet 0 07/29/2020 08/28/2020 Suspended Start: 10-16-2019 End: 11-15-2019 take 1 tablet by mouth twice daily traMADol (ULTRAM) 50 MG tablet Indications: Chronic bilateral thoracic back pain Take 1 tablet by mouth 2 times daily for 30 days. 180 tablet 0 10/16/2019 11/15/2019 Active take 1 tablet by enoch th once daily traMADol (ULTRAM) 50 MG tablet Take 50 mg by mouth daily. 0 Active traMADol (ULTRAM) 25 MG spli t-tablet (2 sources) traMADol (ULTRAM ) 25 MG split-tablet Take 1 split-tab by mouth as needed for Pain. 0 Active traMADol (ULTRAM ) 25 MG split-tablet Take 25 mg by mouth as needed for Pain. 0 Active triamcinolone acetonide 0.25 mg/ml topical cream (2 sources) Corticosteroid Start: 05-29-2022 triamcinolone (KENALOG) 0.025 % cream APPLY TO AFFECTED AREA TWICE DAILY NEEDED FOR 30 DAYS 0 05/29/2022 Active Turmeric extract (3 sources) TURMERIC PO Take by mouth 0 Active UNABLE TO FIND (4 sources) Start: 03-07-2019 UNABLE TO FIND Indications: Chronic bilateral thoracic back pain Massage therapy 1 Act 0 03/07/2019 Active Start: 08-24-2017 UNABLE TO FIND Indications: Chronic tension-type headache, not intractable , Chronic bilateral thoracic back pain Massage therapy 1 Act 0 08/24/2017 Active 24 hr venlafaxine 37.5 mg extended release oral capsule (4 sources) Serotonin and Norepinephrine Reuptake Inhibitor Start: 08-31-2022 take 2 capsules by mouth once daily in the morning venlafaxine (EFFEXOR XR) 37.5 MG extended release capsule Take 2 capsules by mouth every morning 30 capsule 0 08/31/2022 Active Start: 06-30-2022 End: 01-12-2023 take 1 capsule by mouth once daily venlafaxine 37.5 MG Cap SR 24HR capsule XR Take 1 capsule by mouth daily. 180 capsule 1 07/19/2022 01/12/2023 Discontinued (Side effects) vitamin b12 1 mg extended release oral tablet (18 sources) Vitamin B12 take 1 tablet by mouth once daily Cyanocobalamin (VITAMIN B-12) 1000 MCG extended release tablet Take 1,000 mcg by mouth daily 0 Active vitamin e d-alpha 400 unt oral capsule (8 sources) take 1 capsule by mouth once daily vitamin E 400 units capsule Take 1 capsule by mouth daily. 0 Active Vitamin E 400 un its TABS Take by mouth 0 Active Completed/Discontinued Medications Medication Drug Class(es) Dates Sig (Normalized) Sig (Original) acetaminophen 325 mg oral tablet (1 source) Start: 08-27-2020 End: 08-27-2020 acetaminophen (TYLENOL) tablet 650 mg 24 hr buPROPion hydrochloride 150 mg extended release oral tablet (2 sources) Aminoketone End: 01-12-2023 take 1 tablet by mouth once daily in the morning buPROPion 150 MG tablet XL Take 150 mg by mouth daily every morning. 0 01/12/2023 Discontinued (Discontinued by another clinician (suppress cancel msg)) cefepime (1 source) Cephalosporin Antibacterial Start: 12-23-2019 End: 12-23-2019 cefepime (MAXIPIME) 2 g IVPB extended (mini-bag) 200 ml ciprofloxacin 2 mg/ml injection (2 sources) Quinolone Antimicrobial Start: 08-27-2020 End: 08-27-2020 ciprofloxacin (CIPRO) IVPB 400 mg Start: 12-19-2019 End: 12-19-2019 ciprofloxacin (CIPRO) IVPB 4 00 mg dimenhyDRINATE 50 mg oral tablet (1 source) Start: 08-27-2020 End: 08-27-2020 dimenhyDRINATE (DRAMAMINE) tablet 50 mg DULoxetine 60 mg delayed release oral capsule (19 sources) Serotonin and Norepinephrine Reuptake Inhibitor End: 06-30-2022 take 1 capsule by mouth once daily DULoxetine [address] Particles capsule DR Take 60 mg by mouth daily. 0 06/30/2022 Discontinued (Medication Reconciliation (suppress cancel msg)) folic acid 1 mg oral tablet (4 sources) End: 01-12-2023 take 1 tablet by mouth once daily folic acid 1 MG tablet Take 1 mg by mouth daily. 0 01/12/2023 Discontinued (Therapy completed) FOLIC ACID PO Ta ke by mouth 0 Active iopamidol (ISOVUE-370) 76 % injection 75 mL (1 source) Start: 12-17-2019 End: 12-17-2019 iopamidol (ISOVUE-370) 76 % injection 75 mL 1 ml ketorolac tromethamine 15 mg/ml cartridge (2 sources) Nonsteroidal Anti-inflammatory Drug, Cyclooxygenase Inhibitor Start: 12-23-2019 End: 12-23-2019 ketorolac (TORADOL) injection 30 mg Start: 12-17-2019 End: 12-17-2019 ketorolac (TORADOL) injectio n 15 mg levoFLOXacin 500 mg oral tablet (2 sources) Quinolone Antimicrobial Start: 12-23-2019 End: 01-02-2020 levoFLOXacin (LEVAQUIN) tablet 500 mg Sod Citrate-Citric Acid (CITRIC ACID-SODIUM CITRATE PO) (4 sources) End: 12-23-2019 take 1 capsule by mouth once daily Sod Citrate-Citric Acid (CITRIC ACID-SODIUM CITRATE PO) Take 1 capsule by mouth daily 0 12/23/2019 Discontinued (Therapy completed) Sod Citrate-Citr ic Acid (CITRIC ACID-SODIUM CITRATE PO) Take by mouth 0 Suspended Sod Citrate-Citr ic Acid (CITRIC ACID-SODIUM CITRATE PO) Take by mouth 0 Active Problems Active Problems Problem Classification Problem Date Documented Date Episodic/Chronic Cancer of breast (19 sources) Intraductal carcinoma in situ of right breast; Translations: [Intraductal carcinoma in situ of right breast] Onset: 01-25-2020 Chronic Cancer of breast (9 sources) Intraductal carcinoma in situ of right breast; Translations: [Ductal carcinoma in situ (DCIS) of right breast] Onset: 01-25-2020 02-26-2020 Cataract (1 source) Bilateral age-related nuclear cataracts; Translations: [Age-related nuclear cataract, bilateral] 09-28-2023 Chronic Disorders of lipid metabolism (20 sources) Mixed hyperlipidemia; Translations: [Mixed hyperlipidemia] Onset: 08-25-2016 08-25-2016 Chronic Fever of unknown origin (1 source) Fever; Translations: [Fever, unspecified fever cause] Episodic Genitourinary symptoms and ill-defined conditions (3 sources) Genuine stress incontinence; Translations: [Stress incontinence (female) (male)] Onset: 04-22-2021 04-22-2021 Chronic Glaucoma (1 source) At risk of glaucoma; Translations: [Open angle with borderline findings, high risk, bilateral] 09-28-2023 Chronic Headache; including migraine (20 sources) Chronic tension-type headache; Translations: [Chronic tension-type headache, not intractable] Onset: 08-25-2016 08-25-2016 Chronic Immunizations and screening for infectious disease (4 sources) Contact with and (suspected) exposure to other viral communicable diseases; Translations: [CONTCT EXPS OTH VIRL COMMUNICABL DZ] Onset: 08-09-2020 Episodic Nonmalignant breast conditions (2 sources) Calcification of breast; Translations: [Breast calcification, right] Episodic Osteoarthritis (3 sources) 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; Translations: [Heberden's nodes (with arthropathy)] Onset: 01-18-2019 01-18-2019 Chronic Osteoarthritis (20 sources) Right Heberdens nodes with arthropathy; Translations: [Heberden's nodes of right hand] Onset: 01-18-2019 01-18-2019 Other diseases of kidney and ureters (1 source) Hydronephrosis due to ureteral obstruction; Translations: [Ureteral stone with hydronephrosis] Other eye disorders (1 source) Disorder of lacrimal gland; Translations: [Dry eye syndrome of bilateral lacrimal glands] 09-28-2023 Episodic Other female genital disorders (1 source) Vaginal irritation Episodic Other nutritional; endocrine; and metabolic disorders (5 sources) Obese class I; Translations: [Obesity, unspecified] Onset: 06-07-2020 06-07-2020 Chronic Other nutritional; endocrine; and metabolic disorders (2 sources) Weight gain; Translations: [Abnormal weight gain] Episodic Other screening for suspected conditions (not mental disorders or infectious disease) (8 sources) Patient encounter status; Translations: [Encounter for screening for malignant neoplasm of colon] Onset: 02-25-2016 Resolved: 07-07-2018 07-07-2018 Episodic Pneumonia (except that caused by tuberculosis or sexually transmitted disease) (1 source) Infective pneumonia; Translations: [Pneumonia due to organism] Episodic Residual codes; unclassified (20 sources) Obstructive sleep apnea syndrome; Translations: [Obstructive sleep apnea (adult) (pediatric)] Onset: 09-07-2018 09-07-2018 Chronic Residual codes; unclassified (1 source) Postmenopausal state; Translations: [Asymptomatic menopausal state] 07-05-2023 Episodic Residual codes; unclassified (2 sources) Estrogen receptor positive status [ER+]; Translations: [Estrogen receptor positive status (ER+)] Onset: 07-05-2023 Episodic Residual codes; unclassified (2 sources) Asymptomatic menopausal state; Translations: [Asymptomatic menopausal state] Onset: 07-05-2023 Episodic Past or Other Problems Problem Classification Problem Date Documented Da te Episodic/Chronic Calculus of urinary tract (20 sources) Ureteric stone; Translations: [Kidney stone] Onset: 12-18-2019 02-01-2020 Episodic Essential hypertension (20 sources) Hypertensive disorder; Translations: [Essential (primary) hypertension] Resolved: 12-27-2015 12-27-2015 Chronic Fluid and electrolyte disorders (20 sources) Moderate dehydration; Translations: [Dehydration] Onset: 07-28-2013 Resolved: 07-30-2013 Episodic Genitourinary symptoms and ill-defined conditions (6 sources) Urgent desire to urinate; Translations: [Urgency of urination] Onset: 10-27-2021 10-27-2021 Episodic Headache; including migraine (20 sources) Chronic headache disorder; Translations: [Chronic headaches] Onset: 02-11-2015 02-11-2015 Episodic Malaise and fatigue (5 sources) Fatigue; Translations: [Other fatigue] Onset: 01-12-2023 Episodic Mood disorders (5 sources) Mood disorders Onset: 04-07-2022 Resolved: 07-05-2023 04-07-2022 Other circulatory disease (20 sources) Low blood pressure; Translations: [Hypotension, unspecified] Onset: 07-28-2013 Episodic Other connective tissue disease (20 sources) Fibromyalgia; Translations: [Fibromyalgia] Onset: 02-11-2015 02-11-2015 Episodic Other nutritional; endocrine; and metabolic disorders (3 sources) Abnormal weight gain; Translations: [Abnormal weight gain] Onset: 01-12-2023 Episodic Other skin disorders (20 sources) Skin lesion; Translations: [Neoplasm of unspecified behavior of bone, soft tissue, and skin] Onset: 01-18-2019 01-18-2019 Episodic Spondylosis; intervertebral disc disorders; other back problems (20 sources) Chronic thoracic back pain; Translations: [Pain in thoracic spine] Onset: 08-25-2016 08-25-2016 Episodic Unclassified (20 sources) Patient encounter status; Translations: [Colon cancer screening] Onset: 02-25-2016 Resolved: 07-07-2018 07-07-2018 Urinary tract infections (20 sources) Lower urinary tract infectious disease; Translations: [Urinary tract infection, site not specified] Onset: 07-28-2013 Resolved: 07-30-2013 06-17-2015 Episodic Results Test Name Value Interpretation [facility] Perimetry studyon 09-28-2023 See note RADIOLOGY [facility] Radiology Study observation (narrative) [facility] OCT OPTIC NERVE OUon 023 OCT OPTIC NERVE OU See note Normal [facility] US ABDOMEN LIMITEDon 023 US ABDOMEN LIMITED EXAMINATION: RIGHT UPPER QUADRANT ULTRASOUND 01/19/2023 11:21 am COMPARISON: None. HISTORY: ORDERING SYSTEM PROVIDED HISTORY: Elevated LFTs TECHNOLOGIST PROVIDED HISTORY: Specify organ?->LIVER Specify organ?->GALLBLADDER FINDINGS: LIVER: Liver shows increased echogenicity suggesting hepatic steatosis without focal lesion. Hepatopetal flow portal vein. Liver enlarged at 22.2 cm in length. BILIARY SYSTEM: Prior cholecystectomy Common bile duct is within normal limits measuring 4.4 mm. RIGHT KIDNEY: The right kidney is grossly unremarkable without evidence of hydronephrosis. PANCREAS: Visualized portions of the pancreas are unremarkable. OTHER: No evidence of right upper quadrant ascites. IMPRESSION: Hepatomegaly and hepatic steatosis. No focal lesion. Prior cholecystectomy Interpreted by: Narciso Burton DO Signed by: Narciso Burton DO 01/19/23 Final result Normal [facility] US ABDOMEN LIMITED Specify o rgan? LIVER, GALLBLADDERon 01-19-2023 Hepatomegaly and hepatic steatosis. No focal lesion. Prior cholecystectomy [facility] CONSOLIDATED EXAMINATION: RIGHT UPPER QUADRANT ULTRASOUND 01/19/2023 11:21 am COMPARISON: None. HISTORY: ORDERING SYSTEM PROVIDED HISTORY: Elevated LFTs TECHNOLOGIST PROVIDED HISTORY: Specify organ?->LIVER Specify organ?->GALLBLADDER FINDINGS: LIVER: Liver shows increased echogenicity suggesting hepatic steatosis without focal lesion. Hepatopetal flow portal vein. Liver enlarged at 22.2 cm in length. BILIARY SYSTEM: Prior cholecystectomy Common bile duct is within normal limits measuring 4.4 mm. RIGHT KIDNEY: The right kidney is grossly unremarkable without evidence of hydronephrosis. PANCREAS: Visualized portions of the pancreas are unremarkable. OTHER: No evidence of right upper quadrant ascites. [facility] CONSOLIDATED Narciso Burton DO - 01/19/2023 EXAMINATION: RIGHT UPPER QUADRANT ULTRASOUND 01/19/2023 11:21 am COMPARISON: None. HISTORY: ORDERING SYSTEM PROVIDED HISTORY: Elevated LFTs TECHNOLOGIST PROVIDED HISTORY: Specify organ?->LIVER Specify organ?->GALLBLADDER FINDINGS: LIVER: Liver shows increased echogenicity suggesting hepatic steatosis without focal lesion. Hepatopetal flow portal vein. Liver enlarged at 22.2 cm in length. BILIARY SYSTEM: Prior cholecystectomy Common bile duct is within normal limits measuring 4.4 mm. RIGHT KIDNEY: The right kidney is grossly unremarkable without evidence of hydronephrosis. PANCREAS: Visualized portions of the pancreas are unremarkable. OTHER: No evidence of right upper quadrant ascites. IMPRESSION: Hepatomegaly and hepatic steatosis. No focal lesion. Prior cholecystectomy [employer]: Radiology Study observation (narrative) [employer]: US ABDOMEN LIMITED Specify o rgan? LIVER, GALLBLADDEROrdered By: Narciso Burton on 01-19-2023 [employer]: CALCIUMon 01-12-2023 Calcium [Mass/Vol] 9.5 mg/dL Normal 8.6-10.5 [facility] Comment on above: Performed By: #### H FP, CA, CHM6, MGO #### [facility] (DEFAULT) [address] [place] [address] Calcium [Mass/Vol] 9.5 mg/dL 8.6 - 10. 5 mg/dL [facility] CBC AND ELECTRONIC DIFFon Basophils (Bld) [#/Vol] 0.05 10*3/uL Normal 0.00-0.15 [facility] Comment on above: Order Comment: Chemo Labs Performed By: #### L [id number] #### [facility] (DEFAULT) [address] [place] [address] 84592 Basophils/100 WBC (Bld) 0.8 % Normal [facility] Comment on above: Order Comment: Chemo Labs Performed By: #### L [id number] #### [facility] (DEFAULT) [address] [place] [address]154 DIFF STATUS Electronic Differential Normal [facility] Comment on above: Order Comment: Chemo Labs Performed By: #### L [id number] #### [facility] (DEFAULT) [address] [place] [address] 90988 Eosinophils (Bld) [#/Vol] 0.18 10*3/uL Normal 0.00-0.42 [facility] Comment on above: Order Comment: Chemo Labs Performed By: #### L [id number] #### [facility] (DEFAULT) [address] [place] [address] 17699 Eosinophils/100 WBC (Bld) 2.8 % Normal [facility] Comment on above: Order Comment: Chemo Labs Performed By: #### L [id number] #### [facility] (DEFAULT) [address] [place] [address] 81059 Hematocrit (Bld) [Volume fraction] 44.1 % Normal 34.9-44.3 [facility] Comment on above: Order Comment: Chemo Labs Performed By: #### L [id number] #### [facility] (DEFAULT) [address] [place] [address] 72804 Hemoglobin (Bld) [Mass/Vol] 14.2 g/dL Normal 11.4-15.2 [facility] Comment on above: Order Comment: Chemo Labs Performed By: #### L [id number] #### [facility] (DEFAULT) [address] [address] Immature Grans % 0.3 % Normal [facility] Comment on above: Order Comment: Chemo Labs Performed By: #### L [id number] #### [facility] (DEFAULT) [address] [address] Immature Grans Absolute < Normal <=0.08 [facility] Comment on above: Order Comment: Chemo Labs Performed By: #### L [id number] #### [facility] (DEFAULT) [address] [address] Lymphocytes (Bld) [#/Vol] 2.60 10*3/uL Normal 1.16-3.51 [facility] Comment on above: Order Comment: Chemo Labs Performed By: #### L [id number] #### [facility] (DEFAULT) [address] [address] Lymphocytes/100 WBC (Bld) 40.3 % Normal [facility] Comment on above: Order Comment: Chemo Labs Performed By: #### L [id number] #### [facility] (DEFAULT) [address] [address] MCV (RBC) [Entitic vol] 94.2 fL Normal 79.6-97.7 [facility] Comment on above: Order Comment: Chemo Labs Performed By: #### L [id number] #### [facility] (DEFAULT) [address] [address] Mean Cell Hgb 30.3 pg Normal 25.9-33.9 [facility] Comment on above: Order Comment: Chemo Labs Performed By: #### L [id number] #### [facility] (DEFAULT) [address] [address] Mean Cell Hgb Conc 32.2 g/dL Normal 31.4-35.9 [facility] Comment on above: Order Comment: Chemo Labs Performed By: #### L [id number] #### [facility] (DEFAULT) [address] [place] [address]69 Monocytes (Bld) [#/Vol] 0.53 10*3/uL Normal 0.22-0.87 [facility] Comment on above: Order Comment: Chemo Labs Performed By: #### L [id number] #### [facility] (DEFAULT) [address] [place] [address] 63003 Monocytes/100 WBC (Bld) 8.2 % Normal [facility] Comment on above: Order Comment: Chemo Labs Performed By: #### L [id number] #### [facility] (DEFAULT) [address] [place] [address]6098 Nucleated RBC 0.0 /100 WBC Normal <=0.2 [facility] Comment on above: Order Comment: Chemo Labs Performed By: #### L [id number] #### [facility] (DEFAULT) [address] [place] [address]682 Platelet mean volume (Bld) [Entitic vol] 9.3 fL Normal 8.5-12.2 [facility] Comment on above: Order Comment: Chemo Labs Performed By: #### L [id number] #### [facility] (DEFAULT) [address] [place] [address] 8[address]40 Platelets (Bld) [#/Vol] 264 10*3/uL Normal 150-393 [facility] Comment on above: Order Comment: Chemo Labs Performed By: #### L [id number] #### [facility] (DEFAULT) [address] [place] [address] 83489 RBC (Bld) [#/Vol] 4.68 10*6/uL Normal 3.91-5.04 [facility] Comment on above: Order Comment: Chemo Labs Performed By: #### L [id number] #### [facility] (DEFAULT) [address] [place] [address] 79360 RBC Distribution 12.6 % Normal 10.8-14.9 [facility] Comment on above: Order Comment: Chemo Labs Performed By: #### L [id number] #### [facility] (DEFAULT) [address] [place] [address] 02759 Segs + Bands Auto 47.6 % Normal [facility] Comment on above: Order Comment: Chemo Labs Performed By: #### L [id number] #### [facility] (DEFAULT) [address] [place] [address] 6[address]40 Segs + Bands,Absolute Auto 3.07 K/uL Normal 1.64-7.28 [facility] Comment on above: Order Comment: Chemo Labs Performed By: #### L [id number] #### [facility] (DEFAULT) [address] [place] [address]9820 WBC (Bld) [#/Vol] 6.45 10*3/uL Normal 3.99-11.19 [facility] Comment on above: Order Comment: Chemo Labs Performed By: #### L [id number] #### [facility] (DEFAULT) [address] [place] [address]359 CHEM 6 (LYTES, BUN CREA)on 0 - Anion gap [Moles/Vol] 12 mmol/L Normal 7-17 [facility] Comment on above: Order Comment: Chemo Labs Performed By: #### H FP, CA, CHM6, MGO #### [facility] (DEFAULT) [address] [place] [address] 33991 Chloride [Moles/Vol] 103 mmol/L Normal 98-108 [facility] Comment on above: Order Comment: Chemo Labs Performed By: #### H FP, CA, CHM6, MGO #### [facility] (DEFAULT) [address] [place] [address] 46910 CO2 [Moles/Vol] 29 mmol/L Normal 21-31 [facility] Comment on above: Order Comment: Chemo Labs Performed By: #### H FP, CA, CHM6, MGO #### [facility] (DEFAULT) [address] [place] [address]207 Creatinine [Mass/Vol] 0.92 mg/dL Normal 0.50-1.20 [facility] Comment on above: Order Comment: Chemo Labs Performed By: #### H FP, CA, CHM6, MGO #### [facility] (DEFAULT) [address] [place] [address] 36412 GFR/1.73 sq M.predicted among non-blacks MDRD (S/P/Bld) [Vol rate/Area] 71 mL/min/{1.73_m2} Normal >=60 [facility] Comment on above: Order Comment: Chemo Labs Result Comment: Repo rted eGFR is based on the CKD-EPI 2020 equation using creatinine, age, and sex. Performed By: #### H FP, CA, CHM6, MGO #### [facility] (DEFAULT) [address] [place] [address] 77834 Potassium [Moles/Vol] 3.6 mmol/L Normal 3.5-5.0 [facility] Comment on above: Order Comment: Chemo Labs Performed By: #### H FP, CA, CHM6, MGO #### [facility] (DEFAULT) [address] [place] [address] 94173 Sodium [Moles/Vol] 140 mmol/L Normal 135-145 [facility] Comment on above: Order Comment: Chemo Labs Performed By: #### H FP, CA, CHM6, MGO #### [facility] (DEFAULT) [address] [place] [address] 03323 Urea nitrogen [Mass/Vol] 13 mg/dL Normal 7-25 [facility] Comment on above: Order Comment: Chemo Labs Performed By: #### H FP, CA, CHM6, MGO #### [facility] (DEFAULT) [address] [place] [address] 38186 Urea nitrogen/Creatinine [Mass ratio] 14 mg/mg Normal [facility] Comment on above: Order Comment: Chemo Labs Performed By: #### H FP, CA, CHM6, MGO #### [facility] (DEFAULT) [address] [place] [address] 36057 Anion gap [Moles/Vol] 12 mmol/L 7 - 17 mmol/L [facility] Chloride [Moles/Vol] 103 mmol/L 98 - 10 8 mmol/L [facility] CO2 [Moles/Vol] 29 mmol/L 21 - 31 mmol/L [facility] Creatinine [Mass/Vol] 0.92 mg/dL 0.50 - 1.20 mg/dL [facility] GFR/1.73 sq M.predicted CKD-EPI (S/P/Bld) [Vol rate/Area] 71 - PINF [facility] Comment on above: Reported eGFR is bas ed on the CKD-EPI 2020 equation using creatinine, age, and sex. Potassium [Moles/Vol] 3.6 mmol/L 3.5 - 5.0 mmol/L [facility] Sodium [Moles/Vol] 140 mmol/L 135 - 145 mmol/L [facility] Urea nitrogen [Mass/Vol] 13 mg/dL 7 - 25 mg/dL [facility] Urea nitrogen/Creatinine [Mass ratio] 14 mg/mg [facility] FERRITINon 01-12-2023 Ferritin [Mass/Vol] 189.6 ng/mL 10.0 - 2 91.0 ng/mL [facility] Interpretation and review of laboratory results Normal [facility] Ferritin [Mass/Vol] 189.6 ng/mL Normal 10.0-291.0 [facility] Comment on above: Performed By: #### F T4, TSH, FERIB #### [facility] (DEFAULT) [address] [place] [address] 00833 HEPATIC FUNCTION PANELon Albumin [Mass/Vol] 4.6 g/dL Normal 3.5-5.0 [facility] Comment on above: Order Comment: Chemo Labs Performed By: #### H FP, CA, CHM6, MGO #### [facility] (DEFAULT) [address] [place] [address] ALP [Catalytic activity/Vol] 67 U/L Normal 32-126 [facility] Comment on above: Order Comment: Chemo Labs Performed By: #### H FP, CA, CHM6, MGO #### [facility] (DEFAULT) [address] [place] [address] 61999 ALT [Catalytic activity/Vol] 56 U/L High 9-48 [facility] Comment on above: Order Comment: Chemo Labs Performed By: #### H FP, CA, CHM6, MGO #### [facility] (DEFAULT) [address] [place] [address] 61524 AST [Catalytic activity/Vol] 37 U/L Normal 10-39 [facility] Comment on above: Order Comment: Chemo Labs Performed By: #### H FP, CA, CHM6, MGO #### [facility] (DEFAULT) [address] [place] [address] 15186 Bilirubin [Mass/Vol] 0.4 mg/dL Normal <1.5 [facility] Comment on above: Order Comment: Chemo Labs Performed By: #### H FP, CA, CHM6, MGO #### [facility] (DEFAULT) [address] [place] [address] 57729 Bilirubin.indirect [Mass/Vol] 0.1 mg/dL Normal <0.3 [facility] Comment on above: Order Comment: Chemo Labs Performed By: #### H FP, CA, CHM6, MGO #### [facility] (DEFAULT) [address] [place] [address] 68041 Protein [Mass/Vol] 7.3 g/dL Normal 6.4-8.3 [facility] Comment on above: Order Comment: Chemo Labs Performed By: #### H FP, CA, CHM6, MGO #### [facility] (DEFAULT) [address] [place] [address] 32468 Albumin [Mass/Vol] 4.6 g/dL 3.5 - 5.0 g/dL [facility] ALP [Catalytic activity/Vol] 67 U/L 32 - 126 U/L [facility] ALT [Catalytic activity/Vol] 56 U/L High 9 - 48 U/L [facility] AST [Catalytic activity/Vol] 37 U/L 10 - 39 U/L [facility] Bilirubin [Mass/Vol] 0.4 mg/dL NINF - 1.5 mg/dL [facility] Bilirubin.direct [Mass/Vol] 0.1 mg/dL NINF - 0.3 mg/dL [facility] Interpretation and review of laboratory results Abnormal [facility] Protein [Mass/Vol] 7.3 g/dL 6.4 - 8.3 g/dL [facility] IRON/IRON BINDING/TRANSFERRI Non 01-12-2023 Interpretation and review of laboratory results Normal [facility] Iron [Mass/Vol] 88 ug/dL [facility] Iron binding capacity [Mass/Vol] 413 [facility] Iron saturation [Mass fraction] 21 % 20 - 55 % [facility] Transferrin [Mass/Vol] 330 mg/dL 200 - 400 mg/dL [facility] Iron [Mass/Vol] 88 ug/dL Normal 40-174 [facility] Comment on above: Performed By: #### L ABTCCPLAV #### [facility] (DEFAULT) [address] [place] [address] 61142 Iron Saturation 21 % Normal 20-55 [facility] Comment on above: Performed By: #### L ABTCCPLAV #### [facility] (DEFAULT) [address] [place] [address] 34392 Total Iron Binding Capacity 413 mcg/dL Normal 250-425 [facility] Comment on above: Performed By: #### L ABTCCPLAV #### [facility] (DEFAULT) [address] [place] [address] Transferrin [Mass/Vol] 330 mg/dL Normal 200-400 [facility] Comment on above: Performed By: #### L ABTCCPLAV #### [facility] (DEFAULT) [address] [place] [address] 22043 MAGNESIUMon 01-12-2023 Magnesium [Mass/Vol] 2.0 mg/dL Normal 1.6-2.6 [facility] Comment on above: Performed By: #### L ABTCCPLAV #### [facility] (DEFAULT) [address] [place] [address] 01972 Magnesium [Mass/Vol] 2.0 mg/dL 1.6 - 2 .6 mg/dL [facility] No Panel Informationon 01-12 Interpretation and review of laboratory results Normal [facility] T4 FREEon 01-12-2023 Free T4 [Mass/Vol] 0.97 ng/dL 0.89 - 1. 76 ng/dL [facility] Interpretation and review of laboratory results Normal [facility] Free T4 [Mass/Vol] 0.97 ng/dL Normal 0.89-1.76 [facility] Comment on above: Performed By: #### F T4, TSH, FERIB #### [facility] (DEFAULT) [address] [place] [address] 35201 TCCP - Star 01-12-2023 CANCER CARE PROTOCOL Done Normal [facility] Comment on above: Performed By: #### L ABTCCPLAV #### [facility] (DEFAULT) [address] [place] [address] Performed By: #### L ABTCCPGOLD #### [facility] (DEFAULT) [address] [place] [address] 68648 TSHon 01-12-2023 Interpretation and review of laboratory results Abnormal [facility] TSH Qn 6.687 m[IU]/L High [facility] TSH 6.687 uIU/mL High 0.550-4.780 [facility] Comment on above: Performed By: #### F T4, TSH, FERIB #### [facility] (DEFAULT) [address] [place] [address] 60107 VITAMIN D (25-HYDROXY,TOTAL) on 01-12-2023 Interpretation and review of laboratory results Normal [facility] Vitamin D+Metabolites [Mass/Vol] 70.5 ng/mL 30.0 - 100.0 ng/mL [facility] Comment on above: <10 Deficiency 10-29 Insufficiency 30-100 Optimal Level >100 Possible Toxicity Vitamin D values have been shown to be falsely decreased in lipemic samples and should be interpreted with caution. [facility] 25-OH Vitamin D Total 70.5 ng/mL Normal 30.0-100.0 [facility] Comment on above: Order Comment: Vitam in D values have been shown to be falsely decreased in lipemic samples and should be interpreted with caution. Result Comment: <10 Deficiency 10-29 Insufficiency 30-100 Optimal Level >100 Possible Toxicity Performed By: #### D 25OH #### [facility] (DEFAULT) [address] [address] Comp Metabol,Fastingon 09-21 Albumin [Mass/Vol] 4.4 g/dL Normal 3.5-5.2 [facility] Comment on above: Performed By: #### C MPF #### [facility] [address] [place] [address] [place] [address] Hospital Clinic Assistant: Maikel Henry MD Albumin/Glob Ratio 1.8 Normal 1.0-2.5 [facility] Comment on above: Performed By: #### C MPF #### [facility] [address] [place] [address] Hospital Clinic Assistant: Maikel Henry MD Alkaline Phos 68 U/L Normal 35-104 [facility] Comment on above: Performed By: #### C MPF #### [facility] [address] [place] [address] Hospital Clinic Assistant: Maikel Henry MD ALT [Catalytic activity/Vol] 38 U/L High 5-33 [facility] Comment on above: Performed By: #### C MPF #### [facility] [address] [place], [place] [id number] Hospital Clinic Assistant: Maikel Henry MD Anion gap [Moles/Vol] 9 mmol/L Normal 9-17 [facility] Comment on above: Performed By: #### C MPF #### [facility] [address] [place], [place] [id number] Hospital Clinic Assistant: Maikel Henry MD AST [Catalytic activity/Vol] 29 U/L Normal <32 [facility] Comment on above: Performed By: #### C MPF #### [facility] [address] [place], [place] [id number] Hospital Clinic Assistant: Maikel Henry MD Bilirubin [Mass/Vol] 0.4 mg/dL Normal 0.3-1.2 [place] Comment on above: Performed By: #### C MPF #### [facility] [address] [place], [place] [id number] Hospital Clinic Assistant: Maikel Henry MD BUN/CRE Ratio 10 Normal 9-20 [facility] Comment on above: Performed By: #### C MPF #### [facility] [address] [place], [place] [id number] Hospital Clinic Assistant: Maikel Henry MD Calcium [Mass/Vol] 9.6 mg/dL Normal 8.6-10.4 [facility] Comment on above: Performed By: #### C MPF #### [facility] [address] [place], [place] [id number] Hospital Clinic Assistant: Maikel Henry MD Chloride [Moles/Vol] 104 mmol/L Normal 98-107 [place] Comment on above: Performed By: #### C MPF #### [facility] [address] [place], [place] [id number] Hospital Clinic Assistant: Maikel Henry MD CO2 [Moles/Vol] 28 mmol/L Normal 20-31 [facility] Comment on above: Performed By: #### C MPF #### [facility] [address] [place] [address] Hospital Clinic Assistant: Maikel Henry MD Creatinine [Mass/Vol] 0.84 mg/dL Normal 0.50-0.90 [facility] Comment on above: Performed By: #### C MPF #### [facility] [address] [place] [address] Hospital Clinic Assistant: Maikel Henry MD GFR/1.73 sq M.predicted among non-blacks MDRD (S/P/Bld) [Vol rate/Area] mL/min/{1.73_m2} Normal >60 [facility] Comment on above: Result Comment: Effective Jul 13, 2022 These results are not intended for use in patients <18 years of age. eGFR results are calculated without a race factor using the 2020 CKD-EPI equation. Careful clinical correlation is recommended, particularly when comparing to results calculated using previous equations. The CKD-EPI equation is less accurate in patients with extremes of muscle mass, extra-renal metabolism of creatine, excessive creatine ingestion, or following therapy that affects renal tubular secretion. Performed By: #### C MPF #### [facility] [address] [place] [address] Hospital Clinic Assistant: Maikel Henry MD Glucose [Mass/Vol] 96 mg/dL Normal 70-99 [facility] Comment on above: Performed By: #### C MPF #### [facility] [address] [place] [address] Hospital Clinic Assistant: Maikel Henry MD Potassium [Moles/Vol] 4.1 mmol/L Normal 3.7-5.3 [facility] Comment on above: Performed By: #### C MPF #### [facility] [address] [place] [address] Hospital Clinic Assistant: Maikel Henry MD Protein [Mass/Vol] 6.8 g/dL Normal 6.4-8.3 [facility] Comment on above: Performed By: #### C MPF #### [facility] [address] [place] [address] Hospital Clinic Assistant: Maikel Henry MD Sodium [Moles/Vol] 141 mmol/L Normal 135-144 [facility] Comment on above: Performed By: #### C MPF #### [facility] [address] [place] [address] Hospital Clinic Assistant: Maikel Henry MD Urea nitrogen [Mass/Vol] 8 mg/dL Normal 6-20 [facility] Comment on above: Performed By: #### C MPF #### [facility] [address] [place] [address] Hospital Clinic Assistant: Maikel Henry MD Comprehensive Metabolic Pane l, Fastingon 09-21-2022 Albumin [Mass/Vol] 4.4 g/dL 3.5 - 5.2 g/dL [facility] Albumin/Globulin [Mass ratio] 1.8 {ratio} 1.0 - 2.5 [facility] ALP (Bld) [Catalytic activity/Vol] 68 U/L 35 - 104 U/L [facility] ALT [Catalytic activity/Vol] 38 U/L High 5 - 33 U/L [facility] Anion gap [Moles/Vol] 9 mmol/L 9 - 17 mmol/L [facility] AST [Catalytic activity/Vol] 29 U/L NINF - 32 U/L [facility] Bilirubin [Mass/Vol] 0.4 mg/dL 0.3 - 1 .2 mg/dL [facility] Calcium [Mass/Vol] 9.6 mg/dL 8.6 - 10. 4 mg/dL [facility] Chloride [Moles/Vol] 104 mmol/L 98 - 10 7 mmol/L [facility] CO2 [Moles/Vol] 28 mmol/L 20 - 31 mmol/L [facility] Creatinine [Mass/Vol] 0.84 mg/dL 0.50 - 0.90 mg/dL [facility] GFR/1.73 sq M.predicted MDRD (S/P/Bld) [Vol rate/Area] - PINF [facility] Comment on above: Effective Jul 13, 2022 These results are not intended for use in patients <18 years of age. eGFR results are calculated without a race factor using the 2020 CKD-EPI equation. Careful clinical correlation is recommended, particularly when comparing to results calculated using previous equations. The CKD-EPI equation is less accurate in patients with extremes of muscle mass, extra-renal metabolism of creatine, excessive creatine ingestion, or following therapy that affects renal tubular secretion. Glucose [Mass/Vol] 96 mg/dL 70 - 99 mg/dL [facility] Interpretation and review of laboratory results Abnormal [facility] Potassium [Moles/Vol] 4.1 mmol/L 3.7 - 5.3 mmol/L [facility] Protein [Mass/Vol] 6.8 g/dL 6.4 - 8.3 g/dL [facility] Sodium [Moles/Vol] 141 mmol/L 135 - 144 mmol/L [facility] Urea nitrogen (BldV) [Mass/Vol] 8 mg/dL 6 - 20 mg/dL [facility] Urea nitrogen/Creatinine (Bld) [Mass ratio] 10 9 - 20 [facility] Lipid Prof, Fastingon 2021 Cholesterol [Mass/Vol] 172 mg/dL Normal <200 [facility] Comment on above: Result Comment: Cholesterol Guidelines: <200 Desirable 200-240 Borderline >240 Undesirable Performed By: #### L IPRF #### [employer] [facility] [place], [place] [id number] Hospital Clinic Assistant: Dino Miller MD Cholesterol in HDL [Mass/Vol] 50 mg/dL Normal >40 [facility] Comment on above: Result Comment: HDL Guidelines: <40 Undesirable 40-59 Borderline >59 Desirable Performed By: #### L IPRF #### [employer] [address] [place] [address] Hospital Clinic Assistant: Dino Miller MD Cholesterol in LDL [Mass/Vol] 71 mg/dL Normal 0-130 [facility] Comment on above: Result Comment: LDL Guidelines: <100 Desirable 100-129 Near to/above Desirable 130-159 Borderline >159 Undesirable Direct (measured) LDL and calculated LDL are not interchangeable tests. Performed By: #### L IPRF #### [employer] [address] [place], [place] [id number] Hospital Clinic Assistant: Dino Miller MD Cholesterol.total/Chol esterol in HDL [Mass ratio] 3.4 {ratio} Normal <5 [facility] Comment on above: Performed By: #### L IPRF #### [employer] [address] [place], [place] [id number] Hospital Clinic Assistant: Dino Miller MD Triglyceride,Fasting 255 mg/dL High <150 [place] Comment on above: Result Comment: Triglyceride Guidelines: <150 Desirable 150-199 Borderline 200-499 High >499 Very high Based on AHA Guidelines for fasting triglyceride, July 2012. Performed By: #### L IPRF #### [employer] [address] [place] [id number] Hospital Clinic Assistant: Dino Miller MD Lipid, Fastingon 09-21-2022 Cholesterol [Mass/Vol] 172 mg/dL NINF - 200 mg/dL [facility] [employer] Comment on above: Cholesterol Guidelines: <200 Desirable 200-240 Borderline >240 Undesirable Cholesterol in HDL [Mass/Vol] 50 mg/dL 40 - PINF mg/dL [facility] [employer] Comment on above: HDL Guidelines: <40 Undesirable 40-59 Borderline >59 Desirable Cholesterol in LDL [Mass/Vol] 71 mg/dL 0 - 130 mg/dL [facility] [employer] Comment on above: LDL Guidelines: <100 Desirable 100-129 Near to/above Desirable 130-159 Borderline >159 Undesirable Direct (measured) LDL and calculated LDL are not interchangeable tests. Cholesterol.total/Chol esterol in HDL [Mass ratio] 3.4 {ratio} NINF - 5 [facility] [employer] Interpretation and review of laboratory results Abnormal [facility] [employer] Triglyceride, Fasting 255 mg/dL High NINF - 150 mg/dL [facility] [employer] Comment on above: Triglyceride Guidelines: <150 Desirable 150-199 Borderline 200-499 High >499 Very high Based on AHA Guidelines for fasting triglyceride, July 2012. [facility] XR ABDOMEN (KUB) (SINGLE AP VIEW)on 04-17-2022 XR ABDOMEN (KUB) (SINGLE AP VIEW) EXAMINATION: ONE SUPINE XRAY VIEW(S) OF THE ABDOMEN 04/17/2022 9:41 am COMPARISON: April 18, 2021 HISTORY: ORDERING SYSTEM PROVIDED HISTORY: Renal stone FINDINGS: Bowel gas pattern nonobstructed. Renal shadows partially obscured by bowel gas and fecal debris. No definite renal or ureteral stones. No acute osseous abnormality. Degenerative and postoperative changes lower lumbar spine noted. IMPRESSION: Nonobstructive bowel gas pattern. No definite renal or ureteral stones. Interpreted by: Narciso Burton DO Signed by: Narciso Burton DO 04/17/22 Final result Normal [facility] XR ABDOMEN (KUB) (SINGLE AP VIEW)on 11-22-2020 1. Left nephrolithiasis. Calcification in the right kidney seen on a prior CT is not visible radiographically. [employer] Phone: EXAMINATION: ONE SUPINE XRAY VIEW(S) OF THE ABDOMEN 11/22/2020 11:52 am COMPARISON: August 01, 2020. Correlation is made to CT of the abdomen and pelvis dated December 17, 2019 HISTORY: ORDERING SYSTEM PROVIDED HISTORY: Renal calculus FINDINGS: 6 mm calcification overlying the left kidney corresponds to stone seen on prior CT. Additional 1 mm calcification overlying the lower pole corresponds to a calcification previously seen. Calcification in the right kidney seen on prior CT is not visible radiographically. Multiple calcifications in the pelvis are probably phleboliths. Bowel gas pattern is unremarkable. There is a moderate volume of stool in the colon. Status post L5-S1 posterior fusion. [employer] Phone: Al, Mhpn Incoming Radiant Results From [employer] - 11/22/2020 12:46 PM EST EXAMINATION: ONE SUPINE XRAY VIEW(S) OF THE ABDOMEN 11/22/2020 11:52 am COMPARISON: August 01, 2020. Correlation is made to CT of the abdomen and pelvis dated December 17, 2019 HISTORY: ORDERING SYSTEM PROVIDED HISTORY: Renal calculus FINDINGS: 6 mm calcification overlying the left kidney corresponds to stone seen on prior CT. Additional 1 mm calcification overlying the lower pole corresponds to a calcification previously seen. Calcification in the right kidney seen on prior CT is not visible radiographically. Multiple calcifications in the pelvis are probably phleboliths. Bowel gas pattern is unremarkable. There is a moderate volume of stool in the colon. Status post L5-S1 posterior fusion. IMPRESSION: 1. Left nephrolithiasis. Calcification in the right kidney seen on a prior CT is not visible radiographically. [facility] Work Phone: Glucose, Fastingon 0 Glucose [Mass/Vol] 97 mg/dL 70 - 99 mg/dL [place] Lipid, Fastingon 09-12-2020 Cholesterol [Mass/Vol] 247 mg/dL High <200 [place] Comment on above: Cholesterol Guidelines: <200 Desirable 200-240 Borderline >240 Undesirable Cholesterol in HDL [Mass/Vol] 59 mg/dL >40 [place] Comment on above: HDL Guidelines: <40 Undesirable 40-59 Borderline >59 Desirable Cholesterol in LDL [Mass/Vol] 137 mg/dL High 0 - 130 mg/dL [place] Comment on above: LDL Guidelines: <100 Desirable 100-129 Near to/above Desirable 130-159 Borderline >159 Undesirable Direct (measured) LDL and calculated LDL are not interchangeable tests. Cholesterol in VLDL [Mass/Vol] NOT REPORTED High 1 - 30 mg/dL [place] Cholesterol.total/Chol esterol in HDL [Mass ratio] 4.2 {ratio} <5 [place] Interpretation and review of laboratory results Abnormal [place] Triglyceride, Fasting 257 mg/dL High <150 [place] Comment on above: Triglyceride Guidelines: <150 Desirable 150-199 Borderline 200-499 High >499 Very high Based on AHA Guidelines for fasting triglyceride, July 2012. COVID-19on 08-20-2020 SARS-CoV-2 Not Detected Not Detected [place], [place] Comment on above: The specimen is NEGATIVE for SARS-CoV-2, the novel coronavirus associated with COVID-19. A negative result does not rule out COVID-19. This test has been authorized by the FDA under an Emergency Use Authorization (EUA) for use by authorized laboratories. [employer] SARS-CoV-2 Reagents for [employer] System are designed to detect the virus that causes COVID-19 in patients with signs and symptoms of infection who are suspected of COVID-19. An individual without symptoms of COVID-19 and who is not shedding SARS-CoV-2 virus would expect to have a negative (not detected) result in this assay. Fact sheet for Healthcare Providers: https://www.[employer].gov/media/093361/download Fact sheet for Patients: https://www.fda.gov/media/623490/download METHODOLOGY: RT-PCR SARS-CoV-2 [place] SARS-CoV-2, Rapid [place], [place] Source .NASOPHARYNGEAL SWAB [place], [place] Basic Metabolic Panelon Anion gap [Moles/Vol] 11 mmol/L 9 - 17 mmol/L [place] Bun/Cre Ratio 17 [place] Calcium [Mass/Vol] 9.3 mg/dL 8.6 - 10. 4 mg/dL [place] Chloride [Moles/Vol] 103 mmol/L 98 - 10 7 mmol/L [place] CO2 [Moles/Vol] 25 mmol/L 20 - 31 mmol/L [place] Creatinine [Mass/Vol] 0.84 mg/dL 0.5 - 0.9 mg/dL [place] GFR >60 >60 mL/min [place] GFR Non- >60 >60 mL/min [place] Glucose [Mass/Vol] 121 mg/dL High 70 - 99 mg/dL [place] Interpretation and review of laboratory results Abnormal [place] Potassium [Moles/Vol] 3.9 mmol/L 3.7 - 5.3 mmol/L [place] Sodium [Moles/Vol] 139 mmol/L 135 - 144 mmol/L [place] Urea nitrogen [Mass/Vol] 14 mg/dL 6 - 20 mg/dL [place] CBC Auto Differentialon Basophils (Bld) [#/Vol] 0.06 10*3/uL [place] Basophils/100 WBC (Bld) 1 % 0 - 2 % [place] Differential Type NOT REPORTED [place] Eosinophils (Bld) [#/Vol] 0.17 10*3/uL [place] Eosinophils/100 WBC (Bld) 3 % 1 - 4 % [place] Erythrocyte distribution width (RBC) [Ratio] 12.8 % 11.8 - 14.4 % [place] Hematocrit (Bld) [Volume fraction] 43.8 % 36.3 - 47.1 % [place] Hemoglobin (Bld) [Mass/Vol] 14.3 g/dL 11.9 - 15.1 g/dL [place] Immature granulocytes (Bld) [#/Vol] 10*3/uL [place] Immature granulocytes (Bld) [#/Vol] 0 % 0 [place] Lymphocytes (Bld) [#/Vol] 2.06 10*3/uL [place] Lymphocytes/100 WBC (Bld) 36 % 24 - 43 % [place] MCH (RBC) [Entitic mass] 31.4 pg 25.2 - 33.5 pg [place] MCHC (RBC) [Mass/Vol] 32.6 g/dL 28.4 - 34.8 g/dL [place] MCV (RBC) [Entitic vol] 96.3 fL 82.6 - 102.9 fL [place] Monocytes (Bld) [#/Vol] 0.47 10*3/uL [place] Monocytes/100 WBC (Bld) 8 % 3 - 12 % [place] Platelet mean volume (Bld) [Entitic vol] 9.1 fL 8.1 - 13.5 fL [place] Platelets (Bld) [#/Vol] NOT REPORTED [place] Platelets (Bld) [#/Vol] 270 10*3/uL [place] RBC (Bld) [#/Vol] 4.55 10*6/uL 3.95 - 5.1 1 m/uL [place] RBC morphology finding Nom (Bld) NOT REPORTED [place] Segmented neutrophils/100 WBC (Bld) 52 % 36 - 65 % [place] Segs Absolute 2.89 [place] WBC (Bld) [#/Vol] 5.7 10*3/uL [place] WBC (Bld) [#/Vol] 0.0 10*3/uL 0.0 per 10 0 WBC [place] WBC Morphology NOT REPORTED [place] Metabolic Panelon 08-13-2020 GFR/1.73 sq M predicted among non-blacks MDRD (S/P/Bld) [Vol rate/Area] [place] Comment on above: Stage 1: Some kidney damage normal GFR Stage 2: Mild kidney damage GFR 60-89 Stage 3: Moderate kidney damage GFR 30-59 Stage 4: Severe kidney damage GFR 15-29 Stage 5: Severe kidney damage GFR <15 ESRD - chronic treatment by dialysis or transplant Average GFR for 50-5 9 years old: 93 mL/min/1.73sq m Chronic Kidney Disease: <60 mL/min/1.73sq m Kidney failure: <15 mL/min/1.73sq m eGFR calculated using average adult body mass. Additional eGFR calculator available at: http://www.wripl/multiple_crcl_2012.htm Urinalysis with Microscopico n 08-13-2020 Amorphous, UA NOT REPORTED None [place] Bacteria, UA TRACE Abnormal None [place] Bilirubin Urine Negative NEGATIVE [place] Casts UA NOT REPORTED /LPF [place] Color, UA YELLOW YELLOW [place] Crystals, UA NOT REPORTED None /HPF [place] Epithelial Cells UA 0 TO 2 [place] Glucose, Ur Negative NEGATIVE [place] Interpretation and review of laboratory results Abnormal [place] Ketones Ql (U) Negative NEGATIVE [place] Leukocyte esterase Test strip Ql (U) Negative NEGATIVE [place] Mucus, UA NOT REPORTED None [place] Nitrite, Urine Negative NEGATIVE [place] Other Observations UA NOT REPORTED NOT REQ. M [facility], [place] pH, UA 6.5 [facility], [place] Protein (U) [Mass/Vol] Negative NEGATIVE [facility], [place] RBC (U) [#/Vol] 0 TO 2 [facility] [place] Renal Epithelial, UA NOT REPORTED 0 /HPF Me [facility], [place] Specific [place], UA 1.015 [facility], [place] Trichomonas, UA NOT REPORTED None [facility] [place] Turbidity UA CLEAR CLEAR [facility], [place] Urinalysis Comments NOT REPORTED [facility], [place] Urine Hgb Negative NEGATIVE [place] Urobilinogen, Urine Normal Normal [facility], [place] WBC, UA 2 TO 5 [facility], [place] Yeast, UA NOT REPORTED None [facility], [place] - [place] COVID-19 PCRon 08-10-2020 SARS-CoV-2, PASTORA Not Detected Normal Not Detected [facility] Comment on above: Result Comment: This nucleic acid amplification test was developed and its performance characteristics determined by [employer]. Nucleic acid amplification tests include PCR and TMA. This test has not been FDA cleared or approved. This test has been authorized by FDA under an Emergency Use Authorization (EUA). This test is only authorized for the duration of time the declaration that circumstances exist justifying the authorization of the emergency use of in vitro diagnostic tests for detection of SARS-CoV-2 virus and/or diagnosis of COVID-19 infection under section 564(b)(1) of the Act, 21 U.S.C. 360bbb-3(b) (1), unless the authorization is terminated or revoked sooner. When diagnostic testing is negative, the possibility of a false negative result should be considered in the context of a patient's recent exposures and the presence of clinical signs and symptoms consistent with COVID-19. An individual without symptoms of COVID-19 and who is not shedding SARS-CoV-2 virus would expect to have a negative (not detected) result in this assay. Performed By: #### C VDPCR #### [facility] [address] [place] [address] Lashae Flores 08-03-2020 Persistent finding consistent with presence of calculus within the upper pole of the left kidney, unchanged when compared to 01/30/2020 as described above. [place] EXAMINATION: ONE SUPINE XRAY VIEW(S) OF THE ABDOMEN 08/01/2020 1:34 pm COMPARISON: Prior studies, most recent 01/30/2020. Comparison also made to CT of the abdomen/pelvis 12/17/2019. HISTORY: ORDERING SYSTEM PROVIDED HISTORY: Renal stone TECHNOLOGIST PROVIDED HISTORY: renal stone FINDINGS: Reniform shadows are suboptimally evaluated due to overlying bowel gas and stool, right more so than left. There is persistent visualization of calculus within the upper pole of the left kidney which is unchanged. Calcified phlebolith overlies the left sacrum, unchanged. Several calcifications in the inferior pelvis are also again identified most consistent with phleboliths. No definite radiopaque ureteral calculi are identified. Bowel gas pattern is nonspecific. There is moderate fecal loading of the colon. Surgical clips in the right upper quadrant related to prior cholecystectomy. Again noted are postoperative changes related to laminectomy with fusion procedure at the L5-S1 level. [place], [place] Al, pn Incoming Radiant Results From [facility] - 08/03/2020 7:45 PM EDT EXAMINATION: ONE SUPINE XRAY VIEW(S) OF THE ABDOMEN 08/01/2020 1:34 pm COMPARISON: Prior studies, most recent 01/30/2020. Comparison also made to CT of the abdomen/pelvis 12/17/2019. HISTORY: ORDERING SYSTEM PROVIDED HISTORY: Renal stone TECHNOLOGIST PROVIDED HISTORY: renal stone FINDINGS: Reniform shadows are suboptimally evaluated due to overlying bowel gas and stool, right more so than left. There is persistent visualization of calculus within the upper pole of the left kidney which is unchanged. Calcified phlebolith overlies the left sacrum, unchanged. Several calcifications in the inferior pelvis are also again identified most consistent with phleboliths. No definite radiopaque ureteral calculi are identified. Bowel gas pattern is nonspecific. There is moderate fecal loading of the colon. Surgical clips in the right upper quadrant related to prior cholecystectomy. Again noted are postoperative changes related to laminectomy with fusion procedure at the L5-S1 level. IMPRESSION: Persistent finding consistent with presence of calculus within the upper pole of the left kidney, unchanged when compared to 01/30/2020 as described above. [place] XR ABDOMEN (KUB) (SINGLE AP VIEW)on 02-01-2020 The distal left ureteral calcifications appear to have been removed when compared to the CT exam. A left renal calculus is re-identified. [place] EXAMINATION: ONE SUPINE XRAY VIEW(S) OF THE ABDOMEN 01/30/2020 2:22 pm COMPARISON: CT dated 12/17/2019 HISTORY: ORDERING SYSTEM PROVIDED HISTORY: Ureteral calculus FINDINGS: Postsurgical changes are noted at L5-S1. Clips are noted in the right abdomen. A calcification projects over the left kidney. Calcifications in the left hemipelvis are re-identified. Calcification at the level of the left sacrum corresponds to a vascular calcification seen on the CT exam. The distal left ureteral calcifications appear to have been removed when compared to the CT exam. [place] Al, pn Incoming Radiant Results From [facility] - 02/01/2020 6:57 AM EDT EXAMINATION: ONE SUPINE XRAY VIEW(S) OF THE ABDOMEN 01/30/2020 2:22 pm COMPARISON: CT dated 12/17/2019 HISTORY: ORDERING SYSTEM PROVIDED HISTORY: Ureteral calculus FINDINGS: Postsurgical changes are noted at L5-S1. Clips are noted in the right abdomen. A calcification projects over the left kidney. Calcifications in the left hemipelvis are re-identified. Calcification at the level of the left sacrum corresponds to a vascular calcification seen on the CT exam. The distal left ureteral calcifications appear to have been removed when compared to the CT exam. IMPRESSION: The distal left ureteral calcifications appear to have been removed when compared to the CT exam. A left renal calculus is re-identified. [place] MATTHEW DIGITAL DIAGNOSTIC W OR WO CAD RIGHTon 01-08-2020 Suspicious loosely grouped calcifications in the posterior 3 o'clock right breast for which stereotactic biopsy is recommended. I discussed these findings and recommendations with the patient in person at the time of imaging. BI-RADS 4 BIRADS: BIRADS - CATEGORY 4 Findings demonstrate a suspicious abnormality. Biopsy should be considered at this time. OVERALL ASSESSMENT - SUSPICIOUS A letter of notification will be sent to the patient regarding the results. My findings and recommendations were discussed with the patient at the time of service. A sales representative metals from the radiology department will be contacting your office and assisting the patient in getting appropriate follow-up. [place] EXAMINATION: DIAGNOSTIC DIGITAL RIGHT BREAST MAMMOGRAM, 01/08/2020 9:31 am TECHNIQUE: Diagnostic mammography of the right breast was performed. Computer aided detection was utilized in the interpretation of this exam. Views: Magnification in the CC and MLO views. True lateral view with tomosynthesis. COMPARISON: December 22, 2019 HISTORY: ORDERING SYSTEM PROVIDED HISTORY: Breast calcification, right TECHNOLOGIST PROVIDED HISTORY: abnormal mammogram FINDINGS: The right breast is composed of scattered fibroglandular tissue. Loosely grouped calcifications in the posterior 3 o'clock position, 6 cm from the nipple are redemonstrated including punctate and fine pleomorphic calcifications. Some of these calcifications are in a linear distribution. No associated mass or distortion. [place], [place] Al, pn Incoming Radiant Results From [employer] - 01/08/2020 10:03 AM EDT EXAMINATION: DIAGNOSTIC DIGITAL RIGHT BREAST MAMMOGRAM, 01/08/2020 9:31 am TECHNIQUE: Diagnostic mammography of the right breast was performed. Computer aided detection was utilized in the interpretation of this exam. Views: Magnification in the CC and MLO views. True lateral view with tomosynthesis. COMPARISON: December 22, 2019 HISTORY: ORDERING SYSTEM PROVIDED HISTORY: Breast calcification, right TECHNOLOGIST PROVIDED HISTORY: abnormal mammogram FINDINGS: The right breast is composed of scattered fibroglandular tissue. Loosely grouped calcifications in the posterior 3 o'clock position, 6 cm from the nipple are redemonstrated including punctate and fine pleomorphic calcifications. Some of these calcifications are in a linear distribution. No associated mass or distortion. IMPRESSION: Suspicious loosely grouped calcifications in the posterior 3 o'clock right breast for which stereotactic biopsy is recommended. I discussed these findings and recommendations with the patient in person at the time of imaging. BI-RADS 4 BIRADS: BIRADS - CATEGORY 4 Findings demonstrate a suspicious abnormality. Biopsy should be considered at this time. OVERALL ASSESSMENT - SUSPICIOUS A letter of notification will be sent to the patient regarding the results. My findings and recommendations were discussed with the patient at the time of service. A sales representative metals from the radiology department will be contacting your office and assisting the patient in getting appropriate follow-up. [place] MATTHEW DIGITAL SCREEN W OR WO C AD BILATERALon 12-24-2019 1. Calcifications in the right lower-inner quadrant, middle third depth. Recommend magnification views. 2. No mammographic evidence of malignancy in the left breast. BIRADS: BIRADS - CATEGORY 0 Additional imaging is recommended at this time. OVERALL ASSESSMENT - INCOMPLETE: Need additional imaging evaluation. [place] EXAMINATION: BILATERAL DIGITAL SCREENING MAMMOGRAM, 12/22/2019 TECHNIQUE: CC and MLO views of the left and right breasts were obtained. Computer aided detection was utilized in the interpretation of this exam. COMPARISON: March 01, 2018, February 17, 2017, November 06, 2015 HISTORY: Screening. FINDINGS: There are scattered areas of fibroglandular density. Right breast: Calcifications in the lower-inner quadrant, middle third depth, some of which are new since prior exam. No mass or architectural distortion. Left breast: No suspicious microcalcification, dominant mass, or architectural distortion. Biopsy clip in the upper breast at about 12 o'clock. [place], [place] Al, Mhpn Incoming Radiant Results From [employer] - 12/24/2019 12:13 PM EDT EXAMINATION: BILATERAL DIGITAL SCREENING MAMMOGRAM, 12/22/2019 TECHNIQUE: CC and MLO views of the left and right breasts were obtained. Computer aided detection was utilized in the interpretation of this exam. COMPARISON: March 01, 2018, February 17, 2017, November 06, 2015 HISTORY: Screening. FINDINGS: There are scattered areas of fibroglandular density. Right breast: Calcifications in the lower-inner quadrant, middle third depth, some of which are new since prior exam. No mass or architectural distortion. Left breast: No suspicious microcalcification, dominant mass, or architectural distortion. Biopsy clip in the upper breast at about 12 o'clock. IMPRESSION: 1. Calcifications in the right lower-inner quadrant, middle third depth. Recommend magnification views. 2. No mammographic evidence of malignancy in the left breast. BIRADS: BIRADS - CATEGORY 0 Additional imaging is recommended at this time. OVERALL ASSESSMENT - INCOMPLETE: Need additional imaging evaluation. [place] CBC Auto Differentialon 12-09 Basophils (Bld) [#/Vol] 0.05 10*3/uL [place] Basophils/100 WBC (Bld) 0 % 0 - 2 % [place] Differential Type NOT REPORTED [place] Eosinophils (Bld) [#/Vol] 0.10 10*3/uL [place] Eosinophils/100 WBC (Bld) 1 % 1 - 4 % [place] Erythrocyte distribution width (RBC) [Ratio] 12.4 % 11.8 - 14.4 % [place] Hematocrit (Bld) [Volume fraction] 39.2 % 36.3 - 47.1 % [place] Hemoglobin (Bld) [Mass/Vol] 13.0 g/dL 11.9 - 15.1 g/dL [place] Immature granulocytes (Bld) [#/Vol] 0 % 0 [place] Immature granulocytes (Bld) [#/Vol] 0.04 10*3/uL [place] Interpretation and review of laboratory results Abnormal [place] Lymphocytes (Bld) [#/Vol] 1.16 10*3/uL [place] Lymphocytes/100 WBC (Bld) 9 % Low 24 - 43 % [place] MCH (RBC) [Entitic mass] 30.9 pg 25.2 - 33.5 pg [place] MCHC (RBC) [Mass/Vol] 33.2 g/dL 28.4 - 34.8 g/dL [place] MCV (RBC) [Entitic vol] 93.1 fL 82.6 - 102.9 fL [place] Monocytes (Bld) [#/Vol] 0.85 10*3/uL [place] Monocytes/100 WBC (Bld) 7 % 3 - 12 % [place] Platelet mean volume (Bld) [Entitic vol] 9.1 fL 8.1 - 13.5 fL [place] Platelets (Bld) [#/Vol] NOT REPORTED [place] Platelets (Bld) [#/Vol] 263 10*3/uL [place] RBC (Bld) [#/Vol] 4.21 10*6/uL 3.95 - 5.1 1 m/uL [place] RBC morphology finding Nom (Bld) NOT REPORTED [place] Segmented neutrophils/100 WBC (Bld) 83 % High 36 - 65 % [place] Segs Absolute 10.53 High [place] WBC (Bld) [#/Vol] 0.0 10*3/uL 0.0 per 10 0 WBC [place] WBC (Bld) [#/Vol] 12.7 10*3/uL High [place] WBC Morphology NOT REPORTED [place] Comprehensive Metabolic Pane l w/ Reflex to MGon 12-23-2019 Albumin [Mass/Vol] 3.6 g/dL 3.5 - 5.2 g/dL [place] Albumin/Globulin [Mass ratio] 1.2 {ratio} [place] ALP [Catalytic activity/Vol] 70 U/L 35 - 104 U/L [place] ALT [Catalytic activity/Vol] 9 U/L 5 - 33 U/L [place] Anion gap [Moles/Vol] 11 mmol/L 9 - 17 mmol/L [place] AST [Catalytic activity/Vol] 14 U/L <32 [place] Bilirubin Ql (U) 0.49 mg/dL 0.3 - 1.2 mg/dL [place] Bun/Cre Ratio 11 [place] Calcium [Mass/Vol] 8.5 mg/dL Low 8.6 - 10. 4 mg/dL [place] Chloride [Moles/Vol] 98 mmol/L 98 - 10 7 mmol/L [place] CO2 [Moles/Vol] 23 mmol/L 20 - 31 mmol/L [place] Creatinine [Mass/Vol] 0.79 mg/dL 0.5 - 0.9 mg/dL [place] GFR >60 >60 mL/min [place] GFR Non- >60 >60 mL/min [place] Glucose [Mass/Vol] 130 mg/dL High 70 - 99 mg/dL [place] Interpretation and review of laboratory results Abnormal [place] Potassium [Moles/Vol] 3.7 mmol/L 3.7 - 5.3 mmol/L [place] Protein [Mass/Vol] 6.5 g/dL 6.4 - 8.3 g/dL [place] Sodium [Moles/Vol] 132 mmol/L Low 135 - 144 mmol/L [place] Urea nitrogen [Mass/Vol] 9 mg/dL 6 - 20 mg/dL [place] Metabolic Panelon 12-23-2019 GFR/1.73 sq M predicted among non-blacks MDRD (S/P/Bld) [Vol rate/Area] [place] Comment on above: Average GFR for 50-5 9 years old: 93 mL/min/1.73sq m Chronic Kidney Disease: <60 mL/min/1.73sq m Kidney failure: <15 mL/min/1.73sq m eGFR calculated using average adult body mass. Additional eGFR calculator available at: http://www.wripl/multiple_crcl_2012.htm Stage 1: Some kidney damage normal GFR Stage 2: Mild kidney damage GFR 60-89 Stage 3: Moderate kidney damage GFR 30-59 Stage 4: Severe kidney damage GFR 15-29 Stage 5: Severe kidney damage GFR <15 ESRD - chronic treatment by dialysis or transplant Microscopic Urinalysison Amorphous, UA NOT REPORTED None [place] Bacteria, UA NOT REPORTED None [place] Casts UA NOT REPORTED /LPF [place] Crystals, UA NOT REPORTED None /HPF [place] Epithelial Cells UA 2 TO 5 [place] Mucus, UA NOT REPORTED None [place] Other Observations UA NOT REPORTED NOT REQ. M [place], [place] RBC (U) [#/Vol] 0 TO 2 [place] Renal Epithelial, UA NOT REPORTED 0 /HPF [place] Trichomonas, UA NOT REPORTED None [place], [place] WBC, UA 2 TO 5 [place] Yeast, UA NOT REPORTED None [place] - [place] Rapid influenza A/B antigens on 12-23-2019 Direct Exam NEGATIVE for Influenza A + B antigens. PCR testing to confirm this result is available upon request. Specimen will be saved in the laboratory for 7 days. Please call [phone] if PCR testing is indicated. [place] Special Requests NOT REPORTED [place] Specimen Description .NASOPHARYNGEAL SWAB [place] Urinalysis, reflex to micros copicon 12-23-2019 Bilirubin Urine Negative NEGATIVE [facility] [place] Color, UA YELLOW YELLOW [place] Glucose, Ur Negative NEGATIVE [place] Interpretation and review of laboratory results Abnormal [place] Ketones Ql (U) Negative NEGATIVE [place] Leukocyte esterase Test strip Ql (U) MODERATE Abnormal NEGATIVE [place] Nitrite, Urine Negative NEGATIVE [place] pH, UA 7.5 [place] Protein (U) [Mass/Vol] Negative NEGATIVE [place] Specific [place], UA 1.010 [place], [place] Turbidity UA CLEAR CLEAR [place] Urinalysis Comments NOT REPORTED [place] Urine Hgb TRACE Abnormal NEGATIVE [place] Urobilinogen, Urine Normal Normal [place] XR CHEST STANDARD (2 VW)on 0 12-23-2019 Al, [facility] Incoming Radiant Results From [employer] - 12/23/2019 7:17 PM EDT EXAMINATION: TWO XRAY VIEWS OF THE CHEST 12/23/2019 7:03 pm COMPARISON: 03/06/2014 HISTORY: ORDERING SYSTEM PROVIDED HISTORY: fever TECHNOLOGIST PROVIDED HISTORY: fever FINDINGS: There is mild patchy bibasilar airspace disease. Upper lungs are clear and the heart size is normal. No pneumothorax or pleural fluid. No acute bone finding. IMPRESSION: Mild patchy bibasilar airspace disease/pneumonia. [place] Mild patchy bibasilar airspace disease/pneumonia. [place] EXAMINATION: TWO XRAY VIEWS OF THE CHEST 12/23/2019 7:03 pm COMPARISON: 03/06/2014 HISTORY: ORDERING SYSTEM PROVIDED HISTORY: fever TECHNOLOGIST PROVIDED HISTORY: fever FINDINGS: There is mild patchy bibasilar airspace disease. Upper lungs are clear and the heart size is normal. No pneumothorax or pleural fluid. No acute bone finding. [facility]BDOMEN (KUB) (SINGLE AP VIEW)on 12-19-2019 Fluoroscopic evaluation during left ureteral stent placement. [facility] [place] EXAMINATION: ONE SUPINE XRAY VIEW(S) OF THE ABDOMEN 12/19/2019 2:10 pm COMPARISON: CT abdomen and pelvis performed 12/17/2019. HISTORY: ORDERING SYSTEM PROVIDED HISTORY: left HLL TECHNOLOGIST PROVIDED HISTORY: left HLL FINDINGS: Fluoroscopic evaluation was performed during left ureteral stent placement. 8 fluoroscopic images were obtained with a fluoroscopic time of 0.1 minutes. No radiologist was present for this procedure. [facility] [place] Incoming Radiant Results From [employer] - 12/19/2019 2:20 PM EDT EXAMINATION: ONE SUPINE XRAY VIEW(S) OF THE ABDOMEN 12/19/2019 2:10 pm COMPARISON: CT abdomen and pelvis performed 12/17/2019. HISTORY: ORDERING SYSTEM PROVIDED HISTORY: left HLL TECHNOLOGIST PROVIDED HISTORY: left HLL FINDINGS: Fluoroscopic evaluation was performed during left ureteral stent placement. 8 fluoroscopic images were obtained with a fluoroscopic time of 0.1 minutes. No radiologist was present for this procedure. IMPRESSION: Fluoroscopic evaluation during left ureteral stent placement. [facility] EKG 12 Leadon 12-18-2019 Atrial Rate 67 BPM [facility], [place] P [place] 33 degrees [facility], [place] P-R Interval 138 ms [facility], [place] Q-T Interval 432 ms [facility], [place] QRS Duration 94 ms [facility], [place] QTc Calculation (Bazett) 456 ms [facility], [place] R [place] 32 degrees [facility], [place] T [place] 40 degrees [facility], [place] Ventricular Rate 67 BPM [facility], [place] Normal sinus rhythm Normal ECG When compared with ECG of 06-MAR-2014 10:53, No significant change was found Confirmed by FANI HOUSER ([id number]) on 12/18/2019 4:56:04 PM [facility], [place] Al, Mhpn Incoming Ekg Results From [employer] - 12/18/2019 4:56 PM EDT Normal sinus rhythm Normal ECG When compared with ECG of 06-MAR-2014 10:53, No significant change was found Confirmed by FANI HOUSER ([id number]) on 12/18/2019 4:56:04 PM [place] CBC Auto Differentialon 03-0 Basophils (Bld) [#/Vol] 0.09 10*3/uL [place] Basophils/100 WBC (Bld) 1 % 0 - 2 % [place] Differential Type NOT REPORTED [place] Eosinophils (Bld) [#/Vol] 0.30 10*3/uL [place] Eosinophils/100 WBC (Bld) 3 % 1 - 4 % [place] Erythrocyte distribution width (RBC) [Ratio] 12.5 % 11.8 - 14.4 % [place] Hematocrit (Bld) [Volume fraction] 43.8 % 36.3 - 47.1 % [place] Hemoglobin (Bld) [Mass/Vol] 14.5 g/dL 11.9 - 15.1 g/dL [place] Immature granulocytes (Bld) [#/Vol] 0 % 0 [place] Immature granulocytes (Bld) [#/Vol] 0.04 10*3/uL [place] Lymphocytes (Bld) [#/Vol] 2.78 10*3/uL [place] Lymphocytes/100 WBC (Bld) 25 % 24 - 43 % [place] MCH (RBC) [Entitic mass] 30.8 pg 25.2 - 33.5 pg [place] MCHC (RBC) [Mass/Vol] 33.1 g/dL 28.4 - 34.8 g/dL [place] MCV (RBC) [Entitic vol] 93.0 fL 82.6 - 102.9 fL [place] Monocytes (Bld) [#/Vol] 0.62 10*3/uL [place] Monocytes/100 WBC (Bld) 6 % 3 - 12 % [place] Platelet mean volume (Bld) [Entitic vol] 9.6 fL 8.1 - 13.5 fL [place] Platelets (Bld) [#/Vol] NOT REPORTED [place] Platelets (Bld) [#/Vol] 318 10*3/uL [place] RBC (Bld) [#/Vol] 4.71 10*6/uL 3.95 - 5.1 1 m/uL [place] RBC morphology finding Nom (Bld) NOT REPORTED [place] Segmented neutrophils/100 WBC (Bld) 65 % 36 - 65 % [place] Segs Absolute 7.26 [place] WBC (Bld) [#/Vol] 0.0 10*3/uL 0.0 per 10 0 WBC [place] WBC (Bld) [#/Vol] 11.1 10*3/uL [place] WBC Morphology NOT REPORTED [place] ABDOMEN PELVIS W IV CONTR [place] 12-17-2019 2 obstructing calculi within the distal left ureter measuring 5.8 x 4.2 mm and 5.3 x 3.5 mm. Moderate left-sided hydronephrosis and hydroureter and delayed contrast enhancement of the left kidney as compared to the right. No evidence for bowel obstruction or inflammation. No free intraperitoneal air or fluid. Status post cholecystectomy. [place] Al, Mhpn Incoming Radiant Results From [employer] - 12/17/2019 1:12 AM EST EXAMINATION: CT OF THE ABDOMEN AND PELVIS WITH CONTRAST 12/17/2019 12:45 am TECHNIQUE: CT of the abdomen and pelvis was performed with the administration of intravenous contrast. Multiplanar reformatted images are provided for review. Dose modulation, iterative reconstruction, and/or weight based adjustment of the mA/kV was utilized to reduce the radiation dose to as low as reasonably achievable. COMPARISON: None. HISTORY: ORDERING SYSTEM PROVIDED HISTORY: LLQ abd tenderness, diarrhea yesterday. Concern for diverticulitis. TECHNOLOGIST PROVIDED HISTORY: IV Only Contrast LLQ abd tenderness, diarrhea yesterday. Concern for diverticulitis. FINDINGS: Lower Chest: Bibasilar dependent atelectasis/scarring . No focal airspace consolidation, sizeable pleural effusion, or pneumothorax. The base of the heart is normal in size without pericardial fluid collection. Organs: The liver, pancreas, and spleen are grossly within normal limits. No focal hepatic mass lesions. No intrahepatic or extrahepatic biliary ductal dilatation. Status post cholecystectomy. GI/Bowel: Bowel is without evidence for obstruction or inflammation. No free intraperitoneal air or fluid noted. Small bowel loops are normal in caliber. Small hiatal hernia. Normal appendix. Pelvis: No evidence for free fluid. Peritoneum/Retroperi toneum: The adrenal glands are normal in size and configuration bilaterally. There is delayed enhancement of the left kidney. There is bilateral nephrolithiasis. Moderate left-sided hydronephrosis and hydroureter secondary to a pair of obstructing calculi within the distal left ureter, immediately proximal to the ureterovesicular junction.. The 2 calculi measure 5.8 x 4.2 mm and 5.3 x 3.5 mm. Urinary bladder is unremarkable. Bones/Soft Tissues: Osseous structures are intact without evidence for acute fracture or dislocation. No definite lytic or blastic lesions. Overlying soft tissues are unremarkable. Status post L5-S1 posterior spinal fusion with vertical rods and pedicle screws. Vasculature: The abdominal aorta is normal in caliber. No discrete and aneurysm or dissection. No lymphadenopathy within the abdomen or pelvis. IMPRESSION: 2 obstructing calculi within the distal left ureter measuring 5.8 x 4.2 mm and 5.3 x 3.5 mm. Moderate left-sided hydronephrosis and hydroureter and delayed contrast enhancement of the left kidney as compared to the right. No evidence for bowel obstruction or inflammation. No free intraperitoneal air or fluid. Status post cholecystectomy. [facility] EXAMINATION: CT OF THE ABDOMEN AND PELVIS WITH CONTRAST 12/17/2019 12:45 am TECHNIQUE: CT of the abdomen and pelvis was performed with the administration of intravenous contrast. Multiplanar reformatted images are provided for review. Dose modulation, iterative reconstruction, and/or weight based adjustment of the mA/kV was utilized to reduce the radiation dose to as low as reasonably achievable. COMPARISON: None. HISTORY: ORDERING SYSTEM PROVIDED HISTORY: LLQ abd tenderness, diarrhea yesterday. Concern for diverticulitis. TECHNOLOGIST PROVIDED HISTORY: IV Only Contrast LLQ abd tenderness, diarrhea yesterday. Concern for diverticulitis. FINDINGS: Lower Chest: Bibasilar dependent atelectasis/scarring . No focal airspace consolidation, sizeable pleural effusion, or pneumothorax. The base of the heart is normal in size without pericardial fluid collection. Organs: The liver, pancreas, and spleen are grossly within normal limits. No focal hepatic mass lesions. No intrahepatic or extrahepatic biliary ductal dilatation. Status post cholecystectomy. GI/Bowel: Bowel is without evidence for obstruction or inflammation. No free intraperitoneal air or fluid noted. Small bowel loops are normal in caliber. Small hiatal hernia. Normal appendix. Pelvis: No evidence for free fluid. Peritoneum/Retroperi toneum: The adrenal glands are normal in size and configuration bilaterally. There is delayed enhancement of the left kidney. There is bilateral nephrolithiasis. Moderate left-sided hydronephrosis and hydroureter secondary to a pair of obstructing calculi within the distal left ureter, immediately proximal to the ureterovesicular junction.. The 2 calculi measure 5.8 x 4.2 mm and 5.3 x 3.5 mm. Urinary bladder is unremarkable. Bones/Soft Tissues: Osseous structures are intact without evidence for acute fracture or dislocation. No definite lytic or blastic lesions. Overlying soft tissues are unremarkable. Status post L5-S1 posterior spinal fusion with vertical rods and pedicle screws. Vasculature: The abdominal aorta is normal in caliber. No discrete and aneurysm or dissection. No lymphadenopathy within the abdomen or pelvis. [place] Comprehensive Metabolic Pane l w/ Reflex to MGon 12-17-2019 Albumin [Mass/Vol] 4.5 g/dL 3.5 - 5.2 g/dL [place] Albumin/Globulin [Mass ratio] 1.6 {ratio} [place] ALP [Catalytic activity/Vol] 66 U/L 35 - 104 U/L [place] ALT [Catalytic activity/Vol] 14 U/L 5 - 33 U/L [place] Anion gap [Moles/Vol] 15 mmol/L 9 - 17 mmol/L [place] AST [Catalytic activity/Vol] 31 U/L <32 [place] Bilirubin Ql (U) 0.23 mg/dL Low 0.3 - 1.2 mg/dL [place] Bun/Cre Ratio 19 [place] Calcium [Mass/Vol] 9.3 mg/dL 8.6 - 10. 4 mg/dL [place] Chloride [Moles/Vol] 99 mmol/L 98 - 10 7 mmol/L [place] CO2 [Moles/Vol] 24 mmol/L 20 - 31 mmol/L [place] Creatinine [Mass/Vol] 0.83 mg/dL 0.5 - 0.9 mg/dL [place] GFR >60 >60 mL/min [place], [place] GFR Non- >60 >60 mL/min [place] Glucose [Mass/Vol] 140 mg/dL High 70 - 99 mg/dL [place] Interpretation and review of laboratory results Abnormal [place] Potassium [Moles/Vol] 4.2 mmol/L 3.7 - 5.3 mmol/L [place] Protein [Mass/Vol] 7.4 g/dL 6.4 - 8.3 g/dL [place] Sodium [Moles/Vol] 138 mmol/L 135 - 144 mmol/L [place] Urea nitrogen [Mass/Vol] 16 mg/dL 6 - 20 mg/dL [place] Lactic Acidon 12-17-2019 Interpretation and review of laboratory results Abnormal [place] Lactate [Moles/Vol] 2.9 mmol/L High 0.5 - 2. 2 mmol/L [place] Lactic acid, plasmaon 2019 Lactate [Moles/Vol] 2.1 mmol/L 0.5 - 2. 2 mmol/L [place] Lactic Acid, Whole Blood NOT REPORTED 0.7 - 2.1 mmol/L [place] Lipaseon 12-17-2019 Lipase [Catalytic activity/Vol] 23 U/L 13 - 60 U/L [place] Metabolic Panelon 12-17-2019 GFR/1.73 sq M predicted among non-blacks MDRD (S/P/Bld) [Vol rate/Area] [place] Comment on above: Average GFR for 50-5 9 years old: 93 mL/min/1.73sq m Chronic Kidney Disease: <60 mL/min/1.73sq m Kidney failure: <15 mL/min/1.73sq m eGFR calculated using average adult body mass. Additional eGFR calculator available at: http://www.pinnacle-ecs.ModoPayments/multiple_crcl_2012.htm Stage 1: Some kidney damage normal GFR Stage 2: Mild kidney damage GFR 60-89 Stage 3: Moderate kidney damage GFR 30-59 Stage 4: Severe kidney damage GFR 15-29 Stage 5: Severe kidney damage GFR <15 ESRD - chronic treatment by dialysis or transplant Microscopic Urinalysison Amorphous, UA NOT REPORTED None [place] Bacteria, UA TRACE Abnormal None [place] Casts UA NOT REPORTED /LPF [place] Crystals, UA NOT REPORTED None /HPF [place] Epithelial Cells UA 2 TO 5 [place] Interpretation and review of laboratory results Abnormal [place] Mucus, UA NOT REPORTED None [place] Other Observations UA NOT REPORTED NOT REQ. M [place], [place] RBC (U) [#/Vol] None [place] Renal Epithelial, UA NOT REPORTED 0 /HPF [place], [place] Trichomonas, UA NOT REPORTED None [place], [place] WBC, UA 2 TO 5 [place] Yeast, UA NOT REPORTED None [place] - [place] Urinalysis, reflex to micros copicon 12-17-2019 Bilirubin Urine Negative NEGATIVE [place] Color, UA YELLOW YELLOW [place] Glucose, Ur Negative NEGATIVE [place] Interpretation and review of laboratory results Abnormal [place] Ketones Ql (U) Negative NEGATIVE [place] Leukocyte esterase Test strip Ql (U) TRACE Abnormal NEGATIVE [place] Nitrite, Urine Negative NEGATIVE [place] pH, UA 6.5 [place] Protein (U) [Mass/Vol] Negative NEGATIVE [place] Specific [place], UA 1.010 [place], [place] Turbidity UA CLEAR CLEAR [place] Urinalysis Comments NOT REPORTED [place] Urine Hgb Negative NEGATIVE [facility] [place] Urobilinogen, Urine Normal Normal [facility] Otheron 11-15-2019 Direct Exam Negative [employer] Phone: Vaginitis DNA Probeon 2019 Direct Exam Method of testing is a DNA probe intended for detection and identification of Suki species, Gardnerella vaginalis, and Trichomonas vaginalis nucleic acid in vaginal fluid specimens from patients with symptoms of vaginitis/vaginosis. [employer] Phone: Special Requests NOT REPORTED [employer] Phone: Specimen Description .VAGINA [employer] Phone: GLUCOSEon 09-06-2019 Glucose [Mass/Vol] 98 mg/dL Normal 65-99 [facility] [employer] Comment on above: Result Comment: Perf ormed at [place] [address] [facility] [employer]. [address] [place] [address] CLIA No. [id number] CAP Accreditation No. [id number] Client Resource Specialist: Fuentes Stevens M.D. LIPID PANEL WITH REFLEX TO Ana M MARTINEZ LDLon 09-06-2019 Cholesterol [Mass/Vol] 182 mg/dL Normal 150-200 [facility] Cholesterol in LDL/Cholesterol in HDL [Mass ratio] 1.4 Normal [facility] Cholesterol.total/Chol esterol in HDL [Mass ratio] 2.8 {ratio} Normal 1.0-5.0 [facility] Comment on above: Result Comment: Test performed at [facility] [address] [place] [address] CLIA Number [id number] ------ HDL-CHOL 65 mg/dL Normal >39 [facility] Comment on above: Result Comment: HDL <40 mg/dL - High Risk HDL > or = 40mg/dL- Desirable HDL >60 mg/dL - Negative Risk LDL-CHOL, CALCULATED 89 mg/dL Normal <130 [facility] [employer] Comment on above: Result Comment: LDL <100 mg/dL - Desirable LDL >160 mg/dL - High Risk Triglyceride [Mass/Vol] 140 mg/dL Normal 27-150 [facility] VLDL-CHOL, CALCULATED 28 mg/dL Normal 0-30 [facility] [employer] Vital Signs Date Time Vital Sign Value Performing Clinician Danei phily 07-05-2023 08:34-0400 Body mass index (BMI) [Ratio] 34.87 kg/m2 Georgiana Stasik PAC Work Phone: [facility] 07-05-2023 08:34-0400 Body temperature 98.2 [degF] [employer] PAC Work Phone: [facility] 07-05-2023 08:34-0400 Body weight 110.22 kg Georgiana Stasik PAC Work Phone: [facility] 07-05-2023 08:34-0400 Diastolic blood pressure 66 mm[Hg] Georgiana Stasik PAC Work Phone: [facility] 07-05-2023 08:34-0400 Heart rate 57 /min Georgiana Stasik PAC Work Phone: [facility] 07-05-2023 08:34-0400 Respiratory rate 16 /min Georgiana Stasik PAC Work Phone: [facility] 07-05-2023 08:34-0400 SaO2% (BldA) [Mass fraction] 96 % Georgiana Stasik PAC Work Phone: [phone] [place] [address] 07-05-2023 08:34-0400 Systolic blood pressure 132 mm[Hg] Georgiana Stasik PAC Work Phone: [phone] [place] [address] 01-12-2023 14:51-0400 Body mass index (BMI) [Ratio] 35.73 kg/m2 Georgiana Stasik PAC Work Phone: [phone] [place] [address] 01-12-2023 14:51-0400 Body temperature 98.6 [degF] Georgiana Stasik PAC Work Phone: [phone] [place] [address] 01-12-2023 14:51-0400 Body weight 112.95 kg Georgiana Stasik PAC Work Phone: [phone])[phone] [place] [address] 01-12-2023 14:51-0400 Diastolic blood pressure 85 mm[Hg] Georgiana Stasik PAC Work Phone: 2(024)344-244972 [place] [address] 01-12-2023 14:51-0400 Heart rate 84 /min Georgiana Stasik PAC Work Phone: [phone] [place] [address] 01-12-2023 14:51-0400 Respiratory rate 16 /min Georgiana Stasik PAC Work Phone: 7(908)[phone] [place] [address] 01-12-2023 14:51-0400 SaO2% (BldA) [Mass fraction] 96 % Georgiana Stasik PAC Work Phone: [phone] [place] [address] 01-12-2023 14:51-0400 Systolic blood pressure 138 mm[Hg] Georgiana Stasik PAC Work Phone: [phone] [place] [address] 06-30-2022 09:00-0400 Body mass index (BMI) [Ratio] 33.26 kg/m2 Samantha Hendricks MD Work Phone: [phone] [place] [address] 06-30-2022 09:00-0400 Body temperature 98.29 [degF] Samantha Hendricks MD Work Phone: [facility] 06-30-2022 09:00-0400 Body weight 105.14 kg Samantha Hendricks MD Work Phone: [facility] 06-30-2022 09:00-0400 Diastolic blood pressure 61 mm[Hg] Samantha Hendricks MD Work Phone: [facility] 06-30-2022 09:00-0400 Heart rate 75 /min Samantha Hendricks MD Work Phone: [facility] 06-30-2022 09:00-0400 Respiratory rate 16 /min Samantha Hendricks MD Work Phone: [facility] 06-30-2022 09:00-0400 SaO2% (BldA) [Mass fraction] 97 % Samantha Hendricks MD Work Phone: [facility] 06-30-2022 09:00-0400 Systolic blood pressure 111 mm[Hg] Samantha Hendricks MD Work Phone: [facility] 04-07-2022 16:04-0400 Body mass index (BMI) [Ratio] 33.26 kg/m2 Flores Lyles MD Work Phone: [facility] 04-07-2022 16:04-0400 Body temperature 98.71 [degF] Flores Lyles MD Work Phone: [facility] 04-07-2022 16:04-0400 Body weight 105.14 kg Flores Lyles MD Work Phone: [facility] 04-07-2022 16:04-0400 Diastolic blood pressure 74 mm[Hg] Flores Lyles MD Work Phone: [facility] 04-07-2022 16:04-0400 Heart rate 91 /min Flores Lyles MD Work Phone: [facility] 04-07-2022 16:04-0400 Respiratory rate 16 /min Flores Lyles MD Work Phone: [facility] 04-07-2022 16:04-0400 SaO2% (BldA) [Mass fraction] 94 % Flores Lyles MD Work Phone: [facility] 04-07-2022 16:04-0400 Systolic blood pressure 138 mm[Hg] Flores Lyles MD Work Phone: [facility] 08-27-2020 15:00-0500 BP Diastolic 69 mm[Hg] [facility] 08-27-2020 15:00-0500 BP Systolic 130 mm[Hg] Paramjit GayatriChildren[facility] Hospital of MichiganDriver HireSt. [facility] 08-27-2020 15:00-0500 Pulse (Heart Rate) 63 /min [facility] 08-27-2020 15:00-0500 Pulse Oximetry 97 % [facility] [place] [facility] [place] 08-27-2020 15:00-0500 Respiratory Rate 16 /min [facility], [place] 08-27-2020 14:30-0500 Body Temperature 98.49 [degF] [facility] 08-27-2020 12:30-0500 BMI (Body Mass Index) 31.57 kg/m2 [facility] 08-27-2020 12:30-0500 Body weight 99.[address] [facility], [place] 08-27-2020 12:30-0500 Height 177.8 cm [facility] [place] 12-23-2019 20:49-0400 BP Diastolic 62 mm[Hg] [facility] HospitalMango [facility] , [place] 12-23-2019 20:49-0400 BP Systolic 126 mm[Hg] [facility] , [place] 12-23-2019 20:49-0400 Pulse (Heart Rate) 62 /min [facility], [place] 12-23-2019 20:49-0400 Pulse Oximetry 92 % Lowell Moore [facility] , [place] 12-23-2019 20:49-0400 Respiratory Rate 18 /min Lowell Moore [facility], [place] 12-23-2019 20:46-0400 Body Temperature 98.71 [degF] Lowell Moore [facility], [place] 12-19-2019 14:52-0400 BP Diastolic 73 mm[Hg] Paramjit Mcarthur [facility], [place] 12-19-2019 14:52-0400 BP Systolic 141 mm[Hg] [facility], [place] 12-19-2019 14:52-0400 Pulse (Heart Rate) 67 /min Paramjit Mcarthur [facility], [place] 12-19-2019 14:52-0400 Pulse Oximetry 98 % Paramjit Mcarthur [facility], [place] 12-19-2019 14:52-0400 Respiratory Rate 18 /min Paramjit Mcarthur [facility], [place] 12-19-2019 14:12-0400 Body Temperature 97.5 [degF] [facility], [place] 12-19-2019 12:16-0400 BMI (Body Mass Index) 32.14 kg/m2 Paramjit Dunne [facility], [place] 12-19-2019 12:16-0400 Body weight 101.61 kg Paramjit Mcarthur [facility], [place] 12-19-2019 12:16-0400 Height 177.8 cm Paramjit Mcarthur [facility], [place] 12-17-2019 04:16-0400 BP Diastolic 68 mm[Hg] [facility] , [place] 12-17-2019 04:16-0400 BP Systolic 122 mm[Hg] [facility] , [place] 12-17-2019 04:01-0400 Pulse Oximetry 97 % [facility] [place] 12-16-2019 23:32-0500 Body Temperature 97.59 [degF] [facility], [place] 12-16-2019 23:32-0500 Pulse (Heart Rate) 72 /min [facility] [place], [place] 12-16-2019 23:32-0500 Respiratory Rate 17 /min [facility] [place] Encounters Encounter Date Encounter Type Care Provider Facility Start: 09-28-2023 End: 09-28-2023 Office outpatient visit 25 minutes Ariane Dawson MD Work Phone: [facility] [place] Comment on above: OAG (open angle glau coma) suspect, high risk, bilateral (Primary Dx); Age-related nuclear cataract, bilateral; Dry eye syndrome of bilateral lacrimal glands Start: 09-06-2023 End: 09-07-2023 ambulatory Lucie Ham MD Facility: [facility] Start: 07-27-2023 ambulatory ARIANE OLIVAS Facility:[facility] Start: 07-26-2023 End: 07-27-2023 ambulatory Lucie Ham MD Facility: [facility] Start: 07-05-2023 ambulatory ARIANE OLIVAS Facility:[facility] Start: 07-05-2023 End: 07-05-2023 Office outpatient visit 25 minutes Georgiana HOLM Work Phone: [facility] Comment on above: Ductal carcinoma in situ (DCIS) of right breast (Primary Dx); 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, estrogen receptor positive, unspecified laterality; Postmenopausal; Dense breast Start: 06-07-2023 End: 06-08-2023 ambulatory Lucie Ham MD Facility: [facility] Start: 05-10-2023 End: 05-11-2023 ambulatory Lucie Ham MD Facility: [facility] Start: 04-26-2023 End: 04-27-2023 ambulatory Lucie Ham MD Facility: [facility] Start: 01-19-2023 End: 01-22-2023 ambulatory ARIANE OLIVAS [facility] Start: 01-19-2023 End: 01-21-2023 Subsequent hospital visit by physician [facility] Ultrasound Room 2 [facility] Ultrasound Comment on above: Elevated LFTs; Other fatigue; Weight gain; Ductal carcinoma in situ of right breast Start: 01-12-2023 ambulatory ARIANE OLIVAS Facility:[facility] Start: 01-12-2023 ambulatory ARIANE OLIVAS Facility:[facility] Start: 01-12-2023 End: 01-12-2023 Office outpatient visit 25 minutes Georgiana HOLM Work Phone: [facility] Comment on above: Other fatigue (Prima ry Dx); Weight gain; Ductal carcinoma in situ (DCIS) of right breast Start: 09-21-2022 End: 09-22-2022 ambulatory ARIANE OLIVAS [facility] Start: 09-21-2022 Encounter for genera l adult medical examination without abnormal findings [facility] Start: 09-21-2022 End: 09-21-2022 Patient encounter status Ariane Olivas MD Work Phone: [facility] Start: 09-21-2022 End: 09-21-2022 Subsequent hospital visit by physician Ariane Olivas MD Work Phone: [facility] Comment on above: Encounter for well a dult exam without abnormal findings; Wellness examination Start: 06-30-2022 End: 06-30-2022 Office outpatient visit 25 minutes Samantha Hendricks MD Work Phone: [facility] Comment on above: Ductal carcinoma in situ (DCIS) of right breast (Primary Dx) Start: 04-17-2022 End: 04-20-2022 ambulatory ARIANE OLIVAS [facility] Start: 04-17-2022 End: 04-19-2022 Subsequent hospital visit by physician Ariane Olivas MD Work Phone: [facility] Start: 04-07-2022 End: 04-08-2022 Office outpatient visit 25 minutes Flores Lyles MD Work Phone: Department of Radiation Oncology Comment on above: Ductal carcinoma in situ (DCIS) of right breast (Primary Dx) Start: 11-22-2020 End: 11-24-2020 Subsequent hospital visit by physician Seamus Vargas Dr Room 2 [facility] Comment on above: Renal calculus Start: 09-12-2020 End: 09-12-2020 Subsequent hospital visit by physician Ariane QUIÑONEZ Laboratory Comment on above: Wellness examination Start: 08-27-2020 End: 08-27-2020 Subsequent hospital visit by physician Paramjit Mcarthur Work Phone: [facility] Start: 08-20-2020 End: 08-24-2020 Subsequent hospital visit by physician Seamus Richardsid19 Pat Screening Schedule KHANG PRE ADMIT Start: 08-13-2020 End: 08-13-2020 Subsequent hospital visit by physician Ariane QUIÑONEZ Laboratory Comment on above: Renal stone; Pre-op testing Start: 08-09-2020 End: 08-10-2020 Patient encounter procedure EL CHAMPION Facility:[facility] Start: 08-01-2020 End: 08-03-2020 Subsequent hospital visit by physician Seamus Xr Dr Room 4 [facility] Comment on above: Renal stone Start: 01-30-2020 End: 02-01-2020 Subsequent hospital visit by physician Seamus Vargas Dr Room 4 [facility] Comment on above: Ureteral calculus Start: 01-08-2020 End: 01-10-2020 Subsequent hospital visit by physician Seamus Gen Radiologist [facility] Mammography Comment on above: Breast calcification , right Start: 12-23-2019 End: 12-23-2019 Emergency department patient visit Lowell Moore Work Phone: [facility] ED Comment on above: Fever, unspecified f ever cause (Primary Dx); Pneumonia due to organism Start: 12-22-2019 End: 12-24-2019 Subsequent hospital visit by physician Seamus Mammography Room At [facility] Mammography Comment on above: Screening mammogram, encounter for Start: 12-19-2019 End: 12-19-2019 Subsequent hospital visit by physician Paramjit Mcarthur Work Phone: [facility] OR Start: 12-18-2019 End: 12-18-2019 Subsequent hospital visit by physician Ariane QUIÑONEZ EKG Comment on above: Ureteral stone with hydronephrosis Start: 12-16-2019 End: 12-17-2019 Emergency department patient visit Asad Dotson Work Phone: [facility] ED Comment on above: Kidney stone (Primar y Dx) Start: 11-14-2019 End: 11-14-2019 Subsequent hospital visit by physician Ariane Olivas [facility] Comment on above: Vaginal irritation Procedures Date Procedure Procedure Detail Performing Clinician Start: 09-28-2023 Visual field xm uni/ bi w/interp extended exam Ariane Dawson MD Work Phone: Start: 01-19-2023 Us abdominal real ti me w/image limited Georgiana Benítez PA Work Phone: Start: 09-21-2022 Lipid panel Ariane Olivas MD Work Phone: Start: 09-21-2022 Comprehensive metabo lic panel Ariane Olivas MD Work Phone: Start: 11-22-2020 Radiologic exam abdo men 1 view Jus Torres Parsell Work Phone: Start: 09-12-[address] gtt 3 specimens Ariane Darian Olivas Work Phone: Start: 09-12-2020 Lipid panel Ariane Olivas Work Phone: Start: 08-20-2020 COVID-19 John Jordenu regui Work Phone: Start: 08-13-2020 Basic metabolic pane l calcium total Jus W Parsell Work Phone: Start: 08-13-2020 Blood count complete auto&auto difrntl wbc Jus W Parsell Work Phone: Start: 08-13-2020 Urnls dip stick/tabl et reagent auto microscopy Jus W Parsell Work Phone: Start: 08-01-2020 Radiologic exam abdo men 1 view Jus W Parsell Work Phone: Start: 01-30-2020 Radiologic exam abdo men 1 view Jus W Parsell Work Phone: Start: 01-08-2020 Tomosynthesis, mammo screen Georgina Burrell Work Phone: Start: 12-23-2019 Radiologic exam ches t 2 views Lowell E Teresa Work Phone: Start: 12-23-2019 Iaadiadoo influenza Eta n E [employer] Work Phone: Start: 12-23-2019 Urinalysis microscopic only Lowell E [employer]itchHar[employer] Work Phone: Start: 12-23-2019 Urnls dip stick/tabl et rgnt auto w/o microscopy Lowell E [employer]Har[employer] Work Phone: Start: 12-23-2019 Blood count complete auto&auto difrntl wbc Lowell E [employer] Work Phone: Start: 12-22-2019 Screening digital br east tomosynthesis bi Georgina Burrell Work Phone: Start: 12-19-2019 Radiologic exam abdo men 1 view Paramjit Mendietaabigailyari Work Phone: Start: 12-18-2019 Ecg routine ecg w/le ast 12 lds w/i&r Jus Torres Work Phone: Start: 12-18-2019 EKG REPORT Hpf Scanni ng Start: 12-17-2019 Assay of lactate Asad A SSEV Work Phone: Start: 12-17-2019 Urinalysis microscopic only Asad A SSEV Work Phone: Start: 12-17-2019 Urnls dip stick/tabl et rgnt auto w/o microscopy Asad A Mauri Work Phone: Start: 12-17-2019 Ct abdomen & pelvis w/contrast material Asad A SSEV Work Phone: Start: 12-17-2019 Assay of lipase Asad A Mauri Work Phone: Start: 12-17-2019 Blood count complete auto&auto difrntl wbc Asad A Mauri Work Phone: Start: 12-17-2019 Lactate [Moles/Vol] Sye ana m Nowaksain Work Phone: Start: 11-14-2019 Iadna suki specie s direct probe tq Jenniffer Alvarez Work Phone: Start: 06-29-2016 Colonoscopy Ariane Olivas MD Work Phone: Plan of Treatment Date Care Activity Detail Author Start: 06-29-2026 Colon cancer screen colonoscopy Colon cancer screen colonoscopy [facility] Work Phone: Start: 06-29-2026 Screening for malign ant neoplasm of colon [facility] Start: 09-21-2025 Diabetes screen Diabetes screen [facility] Start: 09-12-2025 Lipid panel Lipid screen [facility] [place] Start: 09-10-2024 Diabetes screen Diabetes screen [facility] Start: 09-06-2024 Lipid panel Lipid screen [place], [place] Start: 09-06-2024 Lipid screen Lipid screen [facility] Work Phone: Start: 08-25-2024 DTaP/Tdap/Td vaccine (3 - Td or Tdap) DTaP/Tdap/Td vaccine (3 - Td or Tdap) [facility] Start: 08-25-2024 DTaP/Tdap/Td vaccine (3 - Td) DTaP/Tdap/Td vaccine (3 - Td) [employer] Work Phone: Start: 08-25-2024 DTaP/Tdap/Td vaccine (4 - Td or Tdap) DTaP/Tdap/Td vaccine (4 - Td or Tdap) [facility] Start: 08-25-2024 Tetanus vaccination TETANUS [facility] Start: 02-01-2024 End: 02-01-2024 Patient encounter procedure 02/01/2024 3:00 PM EDT Office Visit [facility] [address], [address] [place] [address] Samantha Hendricks MD [address], [address] [place] [address] [facility] Start: 01-21-2024 End: 01-21-2024 Patient encounter procedure 01/21/2024 11:15 AM EDT Office Visit [facility] [place] [address] [place] [phone] Ariane Dawson MD [address] [place] [address] [facility] [place] Start: 01-14-2024 Depression Monitoring Depression Mon [place] [employer] 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, estrogen receptor positive, unspecified laterality Postmenopausal Dense breast Expected: 08/04/2023 (Approximate), Expires: 08/04/2024 [facility] Comment on above: Expected: 08/04/2023 (Approximate), Expires: 08/04/2024 Start: 07-27-2023 End: 07-27-2023 Patient encounter procedure 07/27/2023 10:45 AM EDT Office Visit [facility] [place] [address] [place] [address] Ariane Dawson MD [address] [place] [address] [address] [place] [address] [facility] [place] Start: 06-28-2023 End: 06-28-2023 Patient encounter procedure [facility] Start: 06-11-2023 Influenza vaccination INFLUENZA VACC INE (#1) [facility] Start: 04-21-2023 End: 04-21-2023 Patient encounter procedure 04/21/2023 Office Visit Urology [facility] Start: 03-03-2023 End: 03-03-2023 Patient encounter procedure 03/03/2023 Office Visit Internal Medicine Ariane Olivas MD [address] [place] [address] Ariane Olivas MD Start: 01-01-2023 Screening for malign ant neoplasm of breast Breast cancer screen [facility] Start: 10-27-2022 Depression Screen Depression Screen [facility] Start: 09-10-2022 Lipid panel Lipids [facility] Start: 08-31-2022 End: 08-31-2022 Patient encounter procedure 08/31/2022 Office Visit Internal Medicine Ariane Olivas MD [address] [place] [address] Ariane Olivas MD Start: 08-08-2022 COVID-19 VACCINE (5 - Booster for Pfizer series) COVID-19 VACCINE (5 - Booster for Pfizer series) [facility] Start: 06-30-2022 End: 06-30-2022 Patient encounter procedure 06/30/2022 Office Visit Oncology Samantha Hendricks MD [address], [address] [place] [address] [facility] Start: 06-11-2022 Influenza vaccination O [facility] Start: 04-21-2022 End: 04-21-2022 Patient encounter procedure 04/21/2022 Office Visit Urology Seng Suárez, ANUSHAC [address] [place] [address] [facility] Start: 01-07-2022 Breast cancer screen Breast cancer s [place], [place] Start: 12-31-2021 Screening for malign ant neoplasm of breast [facility] Start: 12-31-2021 Screening mammography MAMMOGRA M SCREENING DISCUSSION [facility] Start: 12-21-2021 Breast cancer screen Breast cancer s [place], [place] Start: 10-01-2021 Screening for malign ant neoplasm of breast Breast cancer screen [facility] Work Phone: Start: 09-12-2021 Lipid panel Lipid screen [facility] Work Phone: Start: 08-29-2021 End: 08-29-2021 Office Visit 08/29/2021 Office Visit Internal Medicine Ariane Olivas MD [address] [place] [address] Ariane Olivas MD Start: 01-07-2021 Screening for malign ant neoplasm of breast Breast cancer screen [place], [place] Start: 11-28-2020 End: 11-28-2020 Office Visit 11/28/2020 Office Visit Urology Jus Torres, FRAMER - HOME HEALTH CLINICAL SUPERVISOR [address] [place] [address] [facility] Start: 08-28-2020 End: 08-28-2020 Office Visit 08/28/2020 Office Visit Internal Medicine Ariane Olivas MD [address] [place] [address] [phone] Ariane Olivas MD Start: 08-27-2020 End: 08-27-2020 Hospital Encounter [facility] Comment on above: ESWL EXTRACORPOREAL SHOCK WAVE LITHOTRIPSY Start: 08-05-2020 End: 08-05-2020 Office Visit [facility] Start: 03-01-2020 Breast cancer screen Breast cancer s [facility] Work Phone: Start: 02-26-2020 End: 02-26-2020 Office Visit 02/26/2020 Office Visit Internal Medicine Ariane Olivas MD [address] [place] [address] [phone] Ariane Olivas MD Start: 02-06-2020 End: 02-06-2020 Office Visit 02/06/2020 Office Visit Obstetrics and Gynecology Georgina Burrell, KD - CNM [address] [facility] [place] [id number] [facility] Start: 02-01-2020 End: 02-01-2020 Office Visit 02/01/2020 Office Visit Urology Paramjit Mcarthur MD [address], [address] [place] [address] [phone] [facility] Start: 01-09-2020 End: 01-09-2020 Ancillary Procedure [facility] Start: 12-21-2019 End: 12-21-2019 Office Visit 12/21/2019 Office Visit Urology Jus Torres, FRAMER - HOME HEALTH CLINICAL SUPERVISOR [address] [place] [id number] [facility] Start: 12-12-2019 End: 12-12-2019 Office Visit 12/12/2019 Office Visit Obstetrics and Gynecology Georgina Burrell, FRAMER - CNM [address] [place] [address] [facility] Start: 2012 Zoster vaccine hzv l kenny for subcutaneous use ZOSTER (SHINGLES) VACCINE (1 of 2) [facility] Start: 12-30-2007 Colonoscopy COLORECTAL CAN CER SCREENING DISCUSSION [facility] Start: 12-30-2007 Screening for malign ant neoplasm of colon [facility] Start: 2002 Diabetes screen Diabetes screen [place], [place] Start: 2002 Fasting lipid profile LIPID SCREENIN G [facility] Start: 2002 Lipid panel LIPID SCREENING [facility] [facility] Start: 12-30-1983 Screening for malign ant neoplasm of cervix CERVICAL CANCER SCREENING DISCUSSION [facility] Start: 1981 Third diphtheria, tetanus and acellular pertussis (DTaP) vaccination TDAP (ADULT) [facility] Start: 1980 Tetanus vaccination TETANUS [facility] Start: 1977 HIV screening HIV SCREENING DISCUSSION [facility] Start: 1968 Pneumococcal 0-64 ye ars Vaccine (1 of 1 - PPSV23) Pneumococcal 0-64 years Vaccine (1 of 1 - PPSV23) [facility] Work Phone: Start: 1968 PNEUMOCOCCAL VACCINE SERIES (1 - PCV) PNEUMOCOCCAL VACCINE SERIES (1 - PCV) [facility] Start: 1962 Hepatitis B vaccination HEP B VACCINE (1 of 3 - 3-dose series) [facility] Start: 1962 Hepatitis C antibody , confirmatory test HEPATITIS C VIRUS SCREENING [facility] Start: 1962 Hepatitis C screening HEPATITI S C VIRUS SCREENING [facility] End: 12-17-2019 Bacteria identified Cx Nom (U) Urine Culture Microbiology STAT One Time for 1 Occurrences starting 12/17/2019 until 12/17/2019 [place], [place] Comment on above: One Time for 1 Occur rences starting 12/17/2019 until 12/17/2019 Bacteria identified Cx Nom (U) [place] End: 12-23-2019 COVID-19, PCR COVID-19, PCR Lab Routine One Time for 1 Occurrences starting 12/23/2019 until 12/23/2019 [place] Comment on above: One Time for 1 Occur rences starting 12/23/2019 until 12/23/2019 End: 12-23-2019 Culture, Blood 1 Culture, Blood 1 Microbiology STAT One Time for 1 Occurrences starting 12/23/2019 until 12/23/2019 [place] Comment on above: One Time for 1 Occur rences starting 12/23/2019 until 12/23/2019 Culture, Blood 1 Culture, Blood 1 Microbiology STAT 12/23/2019 6:10 PM EDT [place] End: 12-23-2019 Culture, Blood 2 Culture, Blood 2 Microbiology STAT One Time for 1 Occurrences starting 12/23/2019 until 12/23/2019 [place] Comment on above: One Time for 1 Occur rences starting 12/23/2019 until 12/23/2019 Culture, Blood 2 Culture, Blood 2 Microbiology STAT 12/23/2019 6:20 PM EDT [place] End: 08-13-2020 Culture, Urine Culture, Urine Microbiology Routine Renal stone Pre-op testing 1 Occurrences starting 08/13/2020 until 08/13/2020 [place] Comment on above: 1 Occurrences starti ng 08/13/2020 until 08/13/2020 EKG 12 Lead EKG 12 Lead ECG Routine Renal stone Pre-op testing 08/13/2020 10:24 AM EST [place] Initiate Oxygen Ther apy Protocol [place] Comment on above: Daily until disconti nued starting 12/19/2019 Daily until disconti nued starting 12/23/2019 End: 12-23-2019 Lactate, Sepsis Lactate, Sepsis Lab Timed Now Then Every 2hr for 2 Occurrences starting 12/23/2019 until 12/23/2019 [place] Comment on above: Now Then Every 2hr f or 2 Occurrences starting 12/23/2019 until 12/23/2019 Lactate, Sepsis Lactate, Sepsis Lab Today 12/23/2019 6:35 PM EDT [place] Oxygen therapy [[facility] Data Set] Initiate Oxygen Therapy Protocol Respiratory Care Routine Daily until discontinued starting 08/27/2020 [place] Comment on above: Daily until disconti nued starting 08/27/2020 End: 12-23-2019 Respiratory Virus PCR Panel Respiratory Virus PCR Panel Microbiology Routine One Time for 1 Occurrences starting 12/23/2019 until 12/23/2019 [place] Comment on above: One Time for 1 Occur rences starting 12/23/2019 until 12/23/2019 Stone Analysis Stone Analysis Microbiology Routine Release Upon Ordering for 1 Occurrences starting 12/19/2019 [place] Comment on above: Release Upon Orderin g for 1 Occurrences starting 12/19/2019 End: 01-08-2020 US BREAST COMPLETE RIGHT US BREAST COMPLETE RIGHT Imaging Routine Breast calcification, right 1 Occurrences starting 01/08/2020 until 01/08/2020 [place] Comment on above: 1 Occurrences starti ng 01/08/2020 until 01/08/2020 Immunizations Immunization Date Immunization Notes Care Provider Fa [facility] 06-30-2022 Seasonal, quadrivale nt, recombinant, injectable influenza vaccine, preservative free Samantha Hendricks MD Work Phone: [facility] 06-30-2022 influenza virus vaccine, unspecified formulation Georgiana Benítez PAC Work Phone: [facility] 06-23-2022 COVID-19, PFIZER Bivalent BOOSTER, (age 12y+), IM, 30 mcg/0.3 mL dose Ariane Olivas MD Work Phone: [facility] 06-23-2022 COVID-19, PFIZER PUR PLE top, DILUTE for use, (age 12 y+), 30mcg/0.3mL Ariane Olivas MD Work Phone: [facility] Work Phone: 04-08-2022 COVID-19, PFIZER GRA Y top, DO NOT Dilute, (age 12 y+), IM, 30 mcg/0.3 mL Ariane Olivas MD Work Phone: [facility] Work Phone: 08-25-2021 COVID-19, PFIZER PUR PLE top, DILUTE for use, (age 12 y+), 30mcg/0.3mL Ariane Olivas MD Work Phone: [facility] Work Phone: 08-15-2021 influenza, injectabl e, quadrivalent, preservative free Ariane Olivas MD Work Phone: [facility] Work Phone: 08-15-2021 influenza virus vaccine, unspecified formulation Flores Lyles MD Work Phone: [facility] 01-17-2021 COVID-19, PFIZER PUR PLE top, DILUTE for use, (age 12 y+), 30mcg/0.3mL Ariane Olivas MD Work Phone: [facility] Work Phone: 12-27-2020 COVID-19, PFIZER PUR PLE top, DILUTE for use, (age 12 y+), 30mcg/0.3mL Ariane Olivas MD Work Phone: [facility] Work Phone: 07-23-2020 Influenza, injectabl e, Madin [place] Canine Kidney, preservative free, quadrivalent [address], [place] 07-23-2020 influenza, injectabl e, quadrivalent, preservative free [facility] [place] 08-20-2019 influenza virus vaccine, unspecified formulation [facility] Work Phone: 08-20-2019 Influenza, injectabl e, Madin [place] Canine Kidney, preservative free, quadrivalent [facility] Work Phone: 08-20-2019 influenza, injectabl e, quadrivalent, contains preservative Ariane [facility] 09-23-2018 zoster vaccine recombinant [facility] Work Phone: 08-10-2018 Influenza Vaccine, unspecified formulation Ariane [facility] [employer] Phone: 07-31-2018 Influenza, injectabl e, Madin [place] Canine Kidney, preservative free, quadrivalent Ariane [facility] [employer] Phone: 07-08-2018 zoster vaccine recombinant Ariane [facility] [employer] Phone: 06-09-2018 zoster vaccine recombinant Ariane [facility] [employer] Phone: 07-28-2017 influenza virus vaccine, unspecified formulation [address] [employer] Phone: 07-28-2017 influenza, injectabl e, quadrivalent, preservative free Ariane [facility] [employer] Phone: 07-24-2017 Influenza Vaccine, unspecified formulation Raiane [facility] [employer] Phone: 07-24-2017 Influenza, injectabl e, Madin Kimberly Canine Kidney, preservative free, quadrivalent Ariane [facility] [employer] Phone: 08-21-2016 Influenza Vaccine, unspecified formulation Ariane [facility] 08-17-2015 influenza virus vaccine, unspecified formulation [address] 08-17-2015 influenza, injectabl e, quadrivalent, preservative free Ariane [facility] [employer] Phone: 09-05-2014 influenza virus vaccine, unspecified formulation Ariane [facility] 08-25-2014 diphtheria, tetanus toxoids and acellular pertussis vaccine [facility] [employer] Phone: 08-19-2013 influenza, high dose seasonal, preservative-free Ariane [facility] [employer] Phone: 09-14-2012 tetanus toxoid, redu stefanie diphtheria toxoid, and acellular pertussis vaccine, adsorbed Raiane [facility] [employer] Phone: Payers Date Payer Category Payer Unknown [id number] 2022 Unknown [id number] 2019 Unknown [id number] 2018 Unknown BC[place] - [place] P PO xxxxxxxxxxxx 2018-Present [address] [place] [address] xxxxxxxxxxxx [id number] 1962 Unknown [id number] 1962 Unknown [id number] 1962 Unknown [id number] 1962 Unknown [id number] 1962 Unknown [id number] 1962 Unknown [id number] 1962 Unknown [id number] 1962 Unknown [id number] 1962 Unknown [id number] 1962 Unknown [id number] [id number] 1962 Unknown [id number] 1962 Unknown [id number] 1962 Unknown [id number] 1962 Unknown [id number] 1959 Unknown [id number] Social History Date Type Detail Facility Start: 11-14-2019 End: 07-27-2023 Tobacco smoking status [facility] Former smoker [employer] Phone: End: 10-11-1990 History of tobacco use Current smoker [employer] Phone: Start: 11-14-2019 End: 07-05-2023 Cigarettes smoked current (pack per day) - Reported [employer] Phone: Start: 11-14-2019 End: 01-13-2023 Alcohol intake Current non-drinker of alcohol (finding) [employer] Phone: Start: 09-04-2019 History SDOH Social Connections Living 3 [employer] Phone: Start: 09-04-2019 End: 01-13-2023 History SDOH Stress 1 [employer] Phone: Start: 09-04-2019 End: 01-13-2023 History SDOH Financial 5 [employer] Phone: Start: 09-04-2019 End: 01-13-2023 History SDOH IPV Fear 2 [employer] Phone: Start: 11-14-2019 Alcohol Comment rare [employer] [facility] [employer] Work Phone: Start: 1960 Sex Assigned At Not on file [facility] [employer] Phone: Exposure to SARS-CoV -2 (event) Unable to assess [facility] [place] Start: 02-01-2020 End: 07-27-2023 Tobacco use and exposure Never used [facility] [place] Exposure to SARS-CoV -2 (event) Not sure [facility] [place] Start: 01-31-2020 History SDOH Alcohol Comment very rarely [facility] Start: 01-31-2020 End: 01-12-2023 Tobacco Comment 30 years ago [facility] End: 10-11-1990 History of tobacco use Cigarette Smoker ALLY PAULSON [employer] Work Phone: Start: 06-07-2020 End: 07-05-2023 Tobacco use panel [facility] (I/We) worried wheth er (my/our) food would run out before (I/we) got money to buy more. Never true [facility] In the past 12 month s, has lack of transportation kept you from medical appointments or from getting medications? No [facility] Start: 02-26-2020 Gender identity Identifies as female gender (finding) [facility] Start: 09-28-2023 Alcohol intake Current drinke r of alcohol (finding) [facility] Medical Equipment Procedure Code Equipment Code Equipment Original Text Equipment Identifier Dates Unknown [id number] Comment on above: Description: Camposoriana slime Unknown [id number] Comment on above: Description: Camposoriana slime Unknown [id number] Comment on above: Description: In spin e; 4 screws Unknown [id number] Comment on above: Description: In spin e; 4 screws Stent Uret Hydrp l Coat W/O [id number] Start: 12-19-2019 Clinical Notes 04-07-2022 to 09-28-2023 Shefali Miller - 09/28/2023 10:00 AM Eugenie Dawson MD - 09/28/2023 10:00 AM MIHAI Fleming - 07/05/2023 8:15 AM Rm Ramos RN - 07/05/2023 8:15 AM EDTPatient Instructions Note Date & Type Note Facility 09-28-2023 History of Present illness Narrative REASON FOR VISIT Yumi Saravia presents to clinic today for a Established Patient visit. Chief Complaint Follow-up HISTORY OF PRESENT ILLNESS HPI 62 y.o. female presents for 2 months IOP check in follow up of of primary open angle glaucoma. The patient states that vision is decreased, difficulty driving at night, reading is not clear as she would like and denies pain.Patient stopped latanoprost at last visit, helped comfort just a little bit. OU feel scratchy Last edited by Shefali Miller on 09/28/2023 10:19 AM. Allergies, medications & history reviewed & updated by Shefali Miller REVIEW OF SYSTEMS Review of Systems HENT: Negative for hearing loss. Eyes: Positive for itching and visual disturbance. Glare at night OU Respiratory: Negative for shortness of breath and wheezing. Neurological: Negative for headaches. >20 minutes was spent with patient updating allergies, medications, and medical history. Hx: 62 yo female with hx of gradually decreased vision, was in for eval and noted to have possible glaucoma. Was started on latanoprost OU earlier in 2022, now asked to be seen for opinion. She notes that both eyes have been irritated with the drops. Mother with glaucoma as well. Here for IOP check and HVF, doing better after stopping drops last visit. ROS: complete review of systems performed by layout technician, reviewed by me. Meds; stopped latanoprost at bedtime OU OCT: baseline, good quality, shows borderline RNFL and GCC OU CCT: thick at 590 OU HVF: baseline, good quality, shows normal OU A/P 1)Glaucoma suspect: based on nerve appearance and FH with borderline IOP. Discussed with her, overall nerves look ok and could follow as a suspect or use SLT if not tolerating topical therapy. Will stay off of drops for now, RTC in 3-4 mo's for IOP Check, sooner PRN. 2)Dry eye: discussed use of lid hygiene and AT's, also will cover with short course of FML. 3)Cataract: has moderately dense NS OU leading to myopic shift and decreased vision that she is noting. Discussed with her, surface is improved but still irregular, will stay on FML at bedtime for now, RTC In 3 mo's for IOP check, sooner PRN. documented in this encounter [facility] 07-05-2023 History of Present illness Narrative Impression and Recommendations: Yumi Saravia is a 62 y.o. 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 She is s/p recent lumpectomy (02/09/2020). Ultimately, she was felt to have a TisNx, Stage 0 Right breast cancer. She now presents for follow up Abbreviated Plan Summary Staging: TisNx Prior Cancer Therapies: right breast lumpectomy; radiation Current Therapy: TILLMAN Other: n/a *Right Breast DCIS: --Due to her increased fatigue and arthralgias, it was discussed decreasing Tamoxifen to 10 mg or switching to Anastrozole. She elected to continue Tamoxifen at a reduced dosage, then increased to 20 mg daily. Currently stable on Tamoxifen and tolerating. RX refilled. We will plan for 5 years of tamoxifen (April 2025), then graduate from Med ONC program if stable. --She denies any breast changes and she will continue with annual mammogram. Her last mammogram was on 01/04/23 which was normal. She also had MRI breast locally on 07/29/22 that was also normal. She will continue with annual screening- Orders given to patient -Radiation oncology follow up prn -RTC in January after her local mammo/MRI with *Mood: - at last appointment (January 2023)- depressed, getting , seeing a therapist, referral to psychiatrist for meds, on tillman 20 mg . In past, given RX for effexor and lexapro. She saw her Psychiatrist and started on Savella. She then had insurance changes and was off of Savella. Overall, mood is no worse. -Emotional support provided for her home issues Other Health Concerns: -chronic back pain and fibromyalgia which causes sleep disturbances that lead to her forgetfulness. Takes Elavil. Savella was helping and she is hoping to restart medication -insomnia- take benadryl *She was encouraged to get her annual flu and covid booster vaccine per CDC guidelines. All of her questions were answered and she is aware to call with any additional questions or concerns. Return in about 7 months (around 01/25/2024) for follow with Dr. Hendricks; MRI/Mammo locally. Georgiana Benítez, PAC Orders Placed This Encounter MAMMO DIAGNOSTIC WITH WARREN BILATERAL MRI BREAST BILATERAL WITH AND WITHOUT CONTRAST tamoxifen 20 MG tablet Referring Provider: Rafal Saravia is a 62 y.o. female who presents today to the [facility] for follow up. History of Present Illness: Briefly, Yumi Saravia's oncologic history is summarized by the followin12/22/2019 mammogram, screening, bilateral (outside, second opinion here)- There are calcifications in the medial middle third of the right breast. 01/08/2020 mammogram, diagnostic, right (outside, second opinion here) - There are pleomorphic calcifications in a segmental distribution within the medial middle third of the right breast at 3:00 4-9 cm from the nipple measuring 4.8 cm AP x 2.3 cm TRV x 1.7 cm CC 01/16/2020 ([id number]) Right breast, 3:00 posterior depth, core biopsy- Ductal carcinoma in situ (DCIS), intermediate nuclear grade, cribriform pattern with comedo necrosis and associated microcalcifications, 0.4 cm in greatest length Manual immunohistochemical quantification using stains performed at the outside institution: Estrogen Receptor: Positive (99%, strong intensity) Progesterone Receptor: Positive (95%, moderate intensity) Submitted controls show appropriate reactivity 01/25/2020 MRI breast 02/09/2020 Right lumpectomy- 2.0 cm ER/MA positive 04/23/2020 s/p XRT 04/30/2020 establish care and plan to start TILLMAN next week. 08/08/2020 continue on Tamoxifen 03/06/21: Follow up on Tamoxifen. Outside mammography 12/31/20 shows no evidence of malignancy. Held for 2 weeks due to increased fatigue and arthralgias. Will continue Tamoxifen at DR 10 mg. 01/12/23 Hold TILLMAN x 2 weeks, start Lexapro 10 mg and then resume at 10 mg daily 07/05/23 Fu Tamoxifen Interval History: 07/05/2023 Chief Complaint Patient presents with Follow-up tamoxifen Yumi Saravia is a 62 y.o. female who presents to the clinic for follow up in [facility]. She reports the following- passed of [place] in February 2023, was found maybe 10 days after he had when family had not heard from him. Understandably, she has mixed emotions Savella had been improving her mood and fibromyalgia.. She was on it for 2 months but then insurance denied further refills. Her psychiatrist worked on getting it re-approved and now she will restart it again No worsening hot flashes Lower right breast tenderness, no skin cannges Energy stable Joint arthralgias related to fibromyalgias- on elavil. No falls GERD stable The patient otherwise denied any fevers/chills, vision/hearing changes, mouth sores, dysphagia. Denied cough, chest pain, palpitations, abdominal pain or discomfort, bloating, recent nausea or vomiting, diarrhea, black or bloody stools, dysuria or hematuria, or focal weakness. 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 Para: 2, (28 yo son, 24 yo twin girls) Age at of first child: 30 Age of menarche: 15 Patient denies hormonal therapy at this time. Control in her 20's for approx 10 years; Estradiol in her 50's approx. 5 years post menopausal. BREAST (GENERAL): Patient admits to self-breast exams and does them intermittently. Date of patient's first mammogram: 37 Date of most recent mammogram: 12/2019 Bra/Cup Size: does not know BREAST(HISTORICAL BIOPSY/THERAPY/TREATMENT) Patient admits to previous breast biopsy(s). Patient admits to being told they personally have breast cancer or a breast malignancy. Patient denies chemotherapy, hormone therapy or radiation therapy during the last month. Medical/Surgical History: Past Medical History: Diagnosis Date DCIS (ductal carcinoma in situ) 01/16/2020 right breast - ER/MA+ Fibromyalgia History of cancer Hot flashes Hypertension Kidney stones 12/2019 Pneumonia 12/2019 negative for covid-19 Renal insufficiency Severe headache Uterine fibroid Past Surgical History: Procedure Laterality Date BREAST BIOPSY Right 01/16/2020 WOLFGANG AND BSO 2014 OTHER SURGICAL 2005 spinal fusion Lower soine SECTION 1994 SECTION 1991 GALL BLADDER SURGERY KNEE SURGERY scope surgeries Health Maintenance: Family/Social History: Her family history includes Breast Cancer (age of onset: 50) in her cousin; Breast Cancer (age of onset: 60) in her paternal great grandmother; Cancer (age of onset: 40) in her maternal grandfather; Cancer (age of onset: 70) in her paternal grandfather; Cancer (age of onset: 80) in her brother and mother; Colorectal Cancer (age of onset: 80) in her father; Ovarian Cancer (age of onset: 63) in her paternal aunt; Skin Cancer in her paternal uncle. She reports that she has quit smoking. She has never used smokeless tobacco. She reports that she does not use drugs. No history on file for alcohol use. Medications/Allergies/Immunization s: Her current medication(s) include has a current medication list which includes the following prescription(s): Ascorbic Acid (VITAMIN C PO), atenolol 25 MG tablet, Levothyroxine 25 MCG tablet, Milnacipran HCl (Savella) 25 MG tablet, nortriptyline 50 MG capsule, tamoxifen 20 MG tablet, traMADol 50 MG tablet, and vitamin E 400 units capsule. Allergies: Demerol hcl [meperidine] and Sulfa antibiotics Review of Systems: A review of systems was performed with the patient at today's patient and is negative except for those items mentioned in the interval history and those items mentioned below as well as in the nursing documentation review of systems. Fatigue: Fatigue not relieved by rest OR limiting instrumental ADL Physical Exam: Vitals: BP 132/66 (BP Location: Right arm, BP Position: Sitting) Pulse 57 Temp 98.2 F (36.8 C) (Oral) Resp 16 Wt 110.2 kg (243 lb) SpO2 96% BMI 34.87 kg/m Smoking Status Former Patient's Current Performance Status 1 General/Constitutional: Well developed, well nourished female, who looks her stated age of 62 y.o.. No acute distress. HEENT: Head: Normocephalic and atraumatic. Eyes: Pupils are equal, round, and reactive to light and accomodation. Extraocular movements are intact. Sclerae are anicteric. Neck: Supple, non-tender, with no lymphadenopathy. Cardiac: Regular rate and rhythm. Normal S1, S2. No murmurs, rubs or gallops. Pulmonary/Chest: Lungs are clear to auscultation bilaterally. No wheezes, rhonchi or rales noted. No accessory muscle use. Abdominal: Abdomen with normoactive bowel sounds in all four quadrants. Soft, non-tender, non-distended. No organomegaly. Extremities: Normal range of motion in all four extremities, with normal strength equally and symmetrically. No cyanosis or clubbing or peripheral edema. Neurological: Conscious, alert and oriented. Cranial nerves II through XII are intact grossly and symmetrically. No focal neurologic deficit. Skin: Skin is warm and dry. She is not diaphoretic. Psychiatric: Decreased mood and flat affect. Back: No CVA or point vertebral tenderness. Lymph: No bilateral palpable cervical, supraclavicular or axillary adenopathy. Right Breast: S/p right lumpectomy. No palpable masses or skin changes. Left Breast: No palpable masses or skin changes Chest Wall: No abnormalities noted. Patient offered a medical gravity flow irrigator for sensitive exam. declined Imaging Data/Laboratory data: Mammography (Outside), 01/04/23 There is no mammographic evidence of malignancy. A 1 year screening mammogram is recommended Labs: Lab Results Component Value Date WBC 6.45 01/12/2023 HGB 14.2 01/12/2023 HCT 44.1 01/12/2023 PLATELET 264 01/12/2023 MCV 94.2 01/12/2023 Lab Results Component Value Date SODIUM 140 01/12/2023 POTASSIUM 3.6 01/12/2023 CHLORIDE 103 01/12/2023 CO2 29 01/12/2023 BUN 13 01/12/2023 CREATSERUM 0.92 01/12/2023 Lab Results Component Value Date ALT 56 (H) 01/12/2023 AST 37 01/12/2023 ALKPHOS 67 01/12/2023 BILITOTAL 0.4 01/12/2023 BILIDIRECT 0.1 01/12/2023 Lab Results Component Value Date TSH 6.687 (H) 01/12/2023 T4FREE 0.97 01/12/2023 Patient offered a medical gravity flow irrigator for sensitive exam. Pt declined. documented in this encounter [facility] 07-05-2023 Instructions Georgiana Benítez, PAC - 07/05/2023 8:15 AM EDT Images from the original note were not included. When will my phone call be returned? Our providers will do their best to answer your call quickly. You should expect a returned call within 24 hours. If you have an emergency, please call 911 or go to your local emergency department. When will my QR Artistt message be returned? Our providers will do their best to answer your questions quickly. However, there are certain times when you won t get a response. Our providers won t respond to messages on nights, weekends or holidays. 6APT messages are not for urgent issues, and you can expect a response within 3 business days. If you have an emergency, please call 911 or go to your local emergency department. A business day is Wednesday through Wednesday 8 a.m. to 4:30 p.m. When are my results released? Patients have access to most test results as soon as they are available. These results and notes could include sensitive information such as a cancer diagnosis. You always have the choice to wait to view your information in 6APT until you speak with your provider. When will my FMLA/Paperwork be returned? Please allow 7-10 business days for completion of FMLA/Paperwork to be returned. Patient Satisfaction Surveys: Your opinion matters! If you receive a patient satisfaction survey in the mail we would appreciate your thoughts. Please help us get better! Store your prescribed pain medication in a locked cabinet or in an area only accessible to you. When you no longer need your prescribed pain medication, dispose of it immediately by one of the safe methods listed below: TAKE BACK PROGRAM: A drug take-back program is the best method to dispose of un-needed opioids safely. You can locate the take-back program closest to you @ https://takebackday.[place].gov under the COLLECTION SITE BUILDING MAINTENANCE WORKER tab. Never dispose of un-needed medications down the sink or toilet. Instead, crush the medication and mix with damp coffee grounds or cat litter, place in a sealed plastic freezer bag, and dispose of in your regular trash. 1) MRI Breast due in July 2023 (last one was 07/29/22) 2) Mammogram due on December 2023 (last one 01/04/23) documented in this encounter [facility] 01-12-2023 History of Present illness Narrative Impression and Recommendations: Yumi Saravia is a 62 y.o. 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 She is s/p recent lumpectomy (02/09/2020). Ultimately, she was felt to have a TisNx, Stage 0 Right breast cancer. She now presents for follow up Abbreviated Plan Summary Staging: TisNx Prior Cancer Therapies: right breast lumpectomy; radiation Current Therapy: TILLMAN Other: n/a *UnScheduled Visit: -Mood- depressed, getting , seeing a therapist, referral to psychiatrist for meds, on tillman 20 mg . Was on effexor but is not sure why she stopped it. We discussed holding her TILLMAN, continue to see her therapist and keep her scheduled appt with Psychiatrist. We also discussed starting on Lexapro 10 mg daily. She is to give us an update in 2 weeks. She can talk to Psychiatry at her upcoming appt about transitioning to Savella as it may also help with her fibromyalgia. Check labs to rule out other etiologies. Emotional support provided. Denies SI/HI. *Right Breast DCIS: --Due to her increased fatigue and arthralgias, it was discussed decreasing Tamoxifen to 10 mg or switching to Anastrozole. She elected to continue Tamoxifen at a reduced dosage, then increased to 20 mg daily. See above. We discussed that after 2 weeks of holding her Tamoxifen, she can restart TILLMAN at 190 mg and stay on this dose. We will plan for 5 years of tamoxifen (April 2025), then graduate from Med ONC program if stable. --She denies any breast changes and she will continue with annual mammogram. Her last mammogram was on 01/04/23 which was normal. She also had MRI breast locally on 07/29/22 that was also normal. She will continue with annual screening -she has radiation oncology follow up prn Other Health Concerns: -chronic back pain and fibromyalgia which causes sleep disturbances that lead to her forgetfulness. Takes Elavil -insomnia- take benadryl All of her questions were answered and she is aware to call with any additional questions or concerns. Return for as scheduled; labs today. Georgiana Benítez, PAC Orders Placed This Encounter CBC, EDIF, PLATELET CHEM 6 (LYTES, BUN CREA) HEPATIC FUNCTION PANEL CALCIUM MAGNESIUM TSH T4 FREE IRON/IRON BINDING/TRANSFERRIN FERRITIN VITAMIN D (25-HYDROXY,TOTAL) Escitalopram (Lexapro) 10 MG tablet Referring Provider: Rafal Saravia is a 62 y.o. female who presents today to the [facility] for follow up. History of Present Illness: Briefly, Yumi Saravia's oncologic history is summarized by the followin12/22/2019 mammogram, screening, bilateral (outside, second opinion here)- There are calcifications in the medial middle third of the right breast. 01/08/2020 mammogram, diagnostic, right (outside, second opinion here) - There are pleomorphic calcifications in a segmental distribution within the medial middle third of the right breast at 3:00 4-9 cm from the nipple measuring 4.8 cm AP x 2.3 cm TRV x 1.7 cm CC 01/16/2020 ([id number]) Right breast, 3:00 posterior depth, core biopsy- Ductal carcinoma in situ (DCIS), intermediate nuclear grade, cribriform pattern with comedo necrosis and associated microcalcifications, 0.4 cm in greatest length Manual immunohistochemical quantification using stains performed at the outside institution: Estrogen Receptor: Positive (99%, strong intensity) Progesterone Receptor: Positive (95%, moderate intensity) Submitted controls show appropriate reactivity 01/25/2020 MRI breast 02/09/2020 Right lumpectomy- 2.0 cm ER/MA positive 04/23/2020 s/p XRT 04/30/2020 establish care and plan to start TILLMAN next week. 08/08/2020 continue on Tamoxifen 03/06/21: Follow up on Tamoxifen. Outside mammography 3/23/21 shows no evidence of malignancy. Held for 2 weeks due to increased fatigue and arthralgias. Will continue Tamoxifen at DR 10 mg. 01/12/23 Hold TILLMAN x 2 weeks, start Lexapro 10 mg and then resume at 10 mg daily Interval History: 01/12/2023 Chief Complaint Patient presents with Follow-up Yumi Saravia is a 62 y.o. female who presents to the clinic for unscheduled visit for mood. She is currently on tamoxifen. She reports the following- Getting divorce, decreased sleep, no SI/HI, is upset with home situation. Has been on Tillman 20 mg Energy and mood is decreased Hot flashes- manageable Joint arthralgias related to fibromyalgias- on elavil. Recently seems worse No falls GERD stable She is fully vaccinated. Her mother in law in October 2020 from [employer]. The patient otherwise denied any fevers/chills, vision/hearing changes, mouth sores, dysphagia. Denied cough, chest pain, palpitations, abdominal pain or discomfort, bloating, recent nausea or vomiting, diarrhea, black or bloody stools, dysuria or hematuria, or focal weakness. 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 Para: 2, (28 yo son, 24 yo twin girls) Age at of first child: 30 Age of menarche: 15 Patient denies hormonal therapy at this time. Control in her 20's for approx 10 years; Estradiol in her 50's approx. 5 years post menopausal. BREAST (GENERAL): Patient admits to self-breast exams and does them intermittently. Date of patient's first mammogram: 37 Date of most recent mammogram: 12/2019 Bra/Cup Size: does not know BREAST(HISTORICAL BIOPSY/THERAPY/TREATMENT) Patient admits to previous breast biopsy(s). Patient admits to being told they personally have breast cancer or a breast malignancy. Patient denies chemotherapy, hormone therapy or radiation therapy during the last month. Medical/Surgical History: Past Medical History: Diagnosis Date DCIS (ductal carcinoma in situ) 01/16/2020 right breast - ER/MA+ Fibromyalgia History of cancer Hot flashes Hypertension Kidney stones 12/2019 Pneumonia 12/2019 negative for covid-19 Renal insufficiency Severe headache Uterine fibroid Past Surgical History: Procedure Laterality Date BREAST BIOPSY Right 01/16/2020 WOLFGANG AND BSO 2014 OTHER SURGICAL 2006 spinal fusion [place] soine SECTION 1994 SECTION 1990 GALL BLADDER SURGERY KNEE SURGERY scope surgeries Health Maintenance: Family/Social History: Her family history includes Breast Cancer (age of onset: 50) in her cousin; Breast Cancer (age of onset: 60) in her paternal great grandmother; Cancer (age of onset: 40) in her maternal grandfather; Cancer (age of onset: 70) in her paternal grandfather; Cancer (age of onset: 80) in her brother and mother; Colorectal Cancer (age of onset: 80) in her father; Ovarian Cancer (age of onset: 63) in her paternal aunt; Skin Cancer in her paternal uncle. She reports that she has quit smoking. She has never used smokeless tobacco. She reports that she does not use drugs. No history on file for alcohol use. Medications/Allergies/Immunization s: Her current medication(s) include has a current medication list which includes the following prescription(s): Ascorbic Acid (VITAMIN C PO), atenolol 25 MG tablet, nortriptyline 50 MG capsule, tamoxifen 20 MG tablet, traMADol 50 MG tablet, vitamin E 400 units capsule, and Escitalopram (Lexapro) 10 MG tablet. Allergies: Demerol hcl [meperidine] and Sulfa antibiotics Review of Systems: A review of systems was performed with the patient at today's patient and is negative except for those items mentioned in the interval history and those items mentioned below as well as in the nursing documentation review of systems. Fatigue: Fatigue not relieved by rest OR limiting instrumental ADL Physical Exam: Vitals: BP 138/85 Pulse 84 Temp 98.6 F (37 C) Resp 16 Wt 112.9 kg (249 lb) SpO2 96% BMI 35.73 kg/m Smoking Status Former Patient's Current Performance Status 1 General/Constitutional: Well developed, well nourished female, who looks her stated age of 62 y.o.. No acute distress. HEENT: Head: Normocephalic and atraumatic. Eyes: Pupils are equal, round, and reactive to light and accomodation. Extraocular movements are intact. Sclerae are anicteric. Neck: Supple, non-tender, with no lymphadenopathy. Cardiac: Regular rate and rhythm. Normal S1, S2. No murmurs, rubs or gallops. Pulmonary/Chest: Lungs are clear to auscultation bilaterally. No wheezes, rhonchi or rales noted. No accessory muscle use. Abdominal: Abdomen with normoactive bowel sounds in all four quadrants. Soft, non-tender, non-distended. No organomegaly. Extremities: Normal range of motion in all four extremities, with normal strength equally and symmetrically. No cyanosis or clubbing or peripheral edema. Neurological: Conscious, alert and oriented. Cranial nerves II through XII are intact grossly and symmetrically. No focal neurologic deficit. Skin: Skin is warm and dry. She is not diaphoretic. Psychiatric: Decreased mood and flat affect. Back: No CVA or point vertebral tenderness. Lymph: No bilateral palpable cervical, supraclavicular or axillary adenopathy. Right Breast: S/p right lumpectomy. No palpable masses or skin changes. Left Breast: No palpable masses or skin changes Chest Wall: No abnormalities noted. Patient offered a medical gravity flow irrigator for sensitive exam. declined Imaging Data/Laboratory data: Mammography (Outside), 01/04/23 There is no mammographic evidence of malignancy. A 1 year screening mammogram is recommended Labs: Lab Results Component Value Date WBC 6.45 01/12/2023 HGB 14.2 01/12/2023 HCT 44.1 01/12/2023 PLATELET 264 01/12/2023 MCV 94.2 01/12/2023 Lab Results Component Value Date SODIUM 140 01/12/2023 POTASSIUM 3.6 01/12/2023 CHLORIDE 103 01/12/2023 CO2 29 01/12/2023 BUN 13 01/12/2023 CREATSERUM 0.92 01/12/2023 Lab Results Component Value Date ALT 56 (H) 01/12/2023 AST 37 01/12/2023 ALKPHOS 67 01/12/2023 BILITOTAL 0.4 01/12/2023 BILIDIRECT 0.1 01/12/2023 Lab Results Component Value Date TSH 6.687 (H) 01/12/2023 T4FREE 0.97 01/12/2023 Patient offered a medical gravity flow irrigator for sensitive exam. Pt declined. documented in this encounter [facility] 01-12-2023 Instructions MIHAI Salguero - 01/12/2023 2:15 PM EDT Images from the original note were not included. Store your prescribed pain medication in a locked cabinet or in an area only accessible to you. When you no longer need your prescribed pain medication, dispose of it immediately by one of the safe methods listed below: TAKE BACK PROGRAM: A drug take-back program is the best method to dispose of un-needed opioids safely. You can locate the take-back program closest to you @ https://takebackday.[place].gov under the COLLE[employer] SITE BUILDING MAINTENANCE WORKER tab. Never dispose of un-needed medications down the sink or toilet. Instead, crush the medication and mix with damp coffee grounds or cat litter, place in a sealed plastic freezer bag, and dispose of in your regular trash. Your Medical/Oncology Team Doctor: Samantha Hendricks MD BRAIN: Georgiana Benítez PA-C Primary Nurses: LUNA CastroN, RN, LUNA KrishnanN, RN, LUNA QuanN RN We are available to take calls Wednesday-Wednesday 8:00am-4:30pm. During non-business hours and holidays phone calls will be managed by after-hours [facility] RN's. Please allow at least 10 business days for your team to complete any paperwork. When requesting medication refills, please try to provide as much notice as possible (5 days) in order to ensure that you do not run out of medication. 1) Hold Tamoxifen for 2 weeks, then restart Tamoxifen at 10 mg daily 2) Start Lexapro daily, then follow up with your Psychiatrist 3) Call or myChart with an update in 1-2 weeks documented in this encounter [facility] 06-30-2022 History of Present illness Narrative Patient offered a medical gravity flow irrigator for sensitive exam. Pt declined. Impression and Recommendations: Yumi Saravia is a 61 y.o. 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 She is s/p recent lumpectomy (02/09/2020). Ultimately, she was felt to have a TisNx, Stage 0 Right breast cancer. She now presents for follow up Abbreviated Plan Summary Staging: TisNx Prior Cancer Therapies: right breast lumpectomy; radiation Current Therapy: TILLMAN Other: n/a Right Breast DCIS: --Mrs. Saravia is seen for follow up on tamoxifen. She is tolerating the 20 mg daily dose well. Energy levels have been stable. She has had increased hot flashes since starting on Wellbutrin. Will stop Wellbutrin and start Effexor for treatment of hot flashes and SAD. We will plan for 5 years of tamoxifen (April 2025). --She denies any breast changes and she will continue with annual mammogram. Her last mammogram was on 01/01/2022 which was normal. She also had MRI breast locally on 07/07/21 that was also normal. She will continue with annual screening and should complete local mammogram 12/2022. There were no skin changes or breast masses identified on physical exam. -She has a local MRI scheduled 07/30/2022 -continue to follow up with radiation oncology (last visit 04/07/2022) -RTC in 12 months Other Health Concerns: -Seasonal Affective Disorder: Stop Wellbutrin (interacations with Tamoxifen) - Start Effexor 37.5 mg daily - Patient instructed to call in 2 weeks to discuss dose adjustment -chronic back pain and fibromyalgia which causes sleep disturbances that lead to her forgetfulness. Takes Elavil -insomnia: take benadryl -GERD: Takes Tums at night, no dysphagia/odynophagia, related to late meals, stable -Vaccinations: Administered influenza vaccine today in clinic All of her questions were answered and she is aware to call with any additional questions or concerns. Return in 1 year (on 06/30/2023) for PETS SALESPERSON follow up. Please schedule on Wednesday brain clinic. I have seen the patient in conjunction with Dr. Judah Haywood, internal medicine resident, and formulated the medical decision making, as above. I personally interviewed and examined the patient. I have reviewed all the available medical records, pertinent laboratory and diagnostic tests today. I edited the above clinic note entirely and it reflects the details of my interview, exam, and medical decision making. --Mrs. Saravia is seen for follow up on her tamoxifen. She states that overall she is doiing well. She states that she was recently started on wellbutrin by her PCP and has noted that her hot flashes has improved. She continues to note her chronic joint pain from her fibromyalgia. She denies any new pain. She states that her energy is good. She denies any nausea or vomiting. She denies any diarrhea or constipation. She has no signs of recurrence on exam. Her last mammogram was on 01/01/2022 which was normal and she will continue with annual exams. Samantha Hendricks MD Orders Placed This Encounter buPROPion 150 MG tablet XL DISCONTD: venlafaxine 37.5 MG Cap SR 24HR capsule XR influenza recombinant quad vaccine (FLUBLOK) injection 0.5 mL Referring Provider: Rafal Saravia is a 61 y.o. female who presents today to the [facility] for follow up. History of Present Illness: Briefly, Yumi Saravia's oncologic history is summarized by the followin12/22/2019 mammogram, screening, bilateral (outside, second opinion here)- There are calcifications in the medial middle third of the right breast. 01/08/2020 mammogram, diagnostic, right (outside, second opinion here) - There are pleomorphic calcifications in a segmental distribution within the medial middle third of the right breast at 3:00 4-9 cm from the nipple measuring 4.8 cm AP x 2.3 cm TRV x 1.7 cm CC 01/16/2020 ([id number]) Right breast, 3:00 posterior depth, core biopsy- Ductal carcinoma in situ (DCIS), intermediate nuclear grade, cribriform pattern with comedo necrosis and associated microcalcifications, 0.4 cm in greatest length Manual immunohistochemical quantification using stains performed at the outside institution: Estrogen Receptor: Positive (99%, strong intensity) Progesterone Receptor: Positive (95%, moderate intensity) Submitted controls show appropriate reactivity 01/25/2020 MRI breast 02/09/2020 Right lumpectomy- 2.0 cm ER/MA positive 04/23/2020 s/p XRT 04/30/2020 establish care and plan to start TILLMAN next week. 08/08/2020 continue on Tamoxifen 03/06/21: Follow up on Tamoxifen. Outside mammography 12/31/20 shows no evidence of malignancy. Held for 2 weeks due to increased fatigue and arthralgias. Will continue Tamoxifen at DR 10 mg. Interval History: Chief Complaint Patient presents with Follow-up tamoxifen Yumi Saravia is a 61 y.o. female who presents to the clinic for follow up on tamoxifen. Overall she is doing well. She reports the following- She is currently doing well on the 20 mg of Tamoxifen. She reports tolerating this medication dose well. She was started on Wellbutrin by her PCP for SAD about 3 weeks ago. Since that time she has noted hot flashes which had improved significantly prior to starting this medication. Her hot flashes used to be very sporadic and mild (would only need to remove a blanket to get comfortable). Since starting this medication she having hot flashes daily, at least two times daily. Can happen at any time of day, while active or at rest. She has been noted as looking flushed and has drenching sweats that last about 20 minutes. Energy levels have been good. She has fibromyalgia so has chronic joint pains but no recent change in severity. She does have heartburn in the evening, no nausea/vomiting, diarrhea. She is taking Tums nightly, avoids spicy/acidic foods but her symptoms are more common if she eats closer to bed time. No dysphagia or odynophagia. Weight is consistent, no unexplained weight loss. No fevers/chills outside of hot flashes. No headaches or vision change. No leg swelling. No recent falls. Denies chest pain, SOB, cough. No skin rashes. She notes occasional pain under her right breast. 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 Para: 2, (28 yo son, 24 yo twin girls) Age at of first child: 30 Age of menarche: 15 Patient denies hormonal therapy at this time. Control in her 20's for approx 10 years; Estradiol in her 50's approx. 5 years post menopausal. BREAST (GENERAL): Patient admits to self-breast exams and does them intermittently. Date of patient's first mammogram: 37 Date of most recent mammogram: 12/2019 Bra/Cup Size: does not know BREAST(HISTORICAL BIOPSY/THERAPY/TREATMENT) Patient admits to previous breast biopsy(s). Patient admits to being told they personally have breast cancer or a breast malignancy. Patient denies chemotherapy, hormone therapy or radiation therapy during the last month. Medical/Surgical History: Past Medical History: Diagnosis Date DCIS (ductal carcinoma in situ) 01/16/2020 right breast - ER/MA+ Fibromyalgia History of cancer Hot flashes Hypertension Kidney stones 12/2019 Pneumonia 12/2019 negative for covid-19 Renal insufficiency Severe headache Uterine fibroid Past Surgical History: Procedure Laterality Date BREAST BIOPSY Right 01/16/2020 WOLFGANG AND BSO 2014 OTHER SURGICAL 2005 spinal fusion [place] SECTION 1994 SECTION 1990 GALL BLADDER SURGERY KNEE SURGERY scope surgeries Health Maintenance: Family/Social History: Her family history includes Breast Cancer (age of onset: 50) in her cousin; Breast Cancer (age of onset: 60) in her paternal great grandmother; Cancer (age of onset: 40) in her maternal grandfather; Cancer (age of onset: 70) in her paternal grandfather; Cancer (age of onset: 80) in her brother and mother; Colorectal Cancer (age of onset: 80) in her father; Ovarian Cancer (age of onset: 63) in her paternal aunt; Skin Cancer in her paternal uncle. She reports that she has quit smoking. She has never used smokeless tobacco. She reports that she does not use drugs. No history on file for alcohol use. Medications/Allergies/Immunization s: Her current medication(s) include has a current medication list which includes the following prescription(s): Ascorbic Acid (VITAMIN C PO), atenolol 25 MG tablet, buPROPion 150 MG tablet XL, folic acid 1 MG tablet, nortriptyline 50 MG capsule, tamoxifen 20 MG tablet, traMADol 50 MG tablet, vitamin E 400 units capsule, and venlafaxine 37.5 MG Cap SR 24HR capsule XR. Allergies: Demerol hcl [meperidine] and Sulfa antibiotics Review of Systems: A review of systems was performed with the patient at today's patient and is negative except for those items mentioned in the interval history and those items mentioned below as well as in the nursing documentation review of systems. Fatigue: Fatigue not relieved by rest OR limiting instrumental ADL Physical Exam: Vitals: BP 111/61 Pulse 75 Temp 98.3 F (36.8 C) Resp 16 Wt 105.1 kg (231 lb 12.8 oz) SpO2 97% BMI 33.26 kg/m Smoking Status Former Patient's Current Performance Status [address] Dr. Hendricks acted as gravity flow irrigator and was present during breast exam General/Constitutional: Well developed, well nourished female, who looks her stated age of 61 y.o.. No acute distress. HEENT: Head: Normocephalic and atraumatic. Eyes: Pupils are equal, round, and reactive to light and accomodation. Extraocular movements are intact. Sclerae are anicteric. Neck: Supple, non-tender, with no lymphadenopathy. Cardiac: Regular rate and rhythm. Normal S1, S2. No murmurs, rubs or gallops. Pulmonary/Chest: Lungs are clear to auscultation bilaterally. No wheezes, rhonchi or rales noted. No accessory muscle use. Abdominal: Abdomen with normoactive bowel sounds in all four quadrants. Soft, non-tender, non-distended. No organomegaly. Extremities: Normal range of motion in all four extremities, with normal strength equally and symmetrically. No cyanosis or clubbing or peripheral edema. Neurological: Conscious, alert and oriented. Cranial nerves II through XII are intact grossly and symmetrically. No focal neurologic deficit. Skin: Skin is warm and dry. She is not diaphoretic. Psychiatric: Appropriate mood and affect. Back: No CVA or point vertebral tenderness. Lymph: No bilateral palpable cervical or supraclavicular adenopathy. Right Breast: S/p right lumpectomy. No palpable masses or skin changes. Left Breast: No palpable masses or skin changes Chest Wall: No abnormalities noted. Patient offered a medical gravity flow irrigator for sensitive exam. declined Imaging Data/Laboratory data: Mammography (Outside), 01/01/2022 IMPRESSION: BENIGN There is no mammographic evidence of malignancy. A 1 year screening mammogram is recommended. Labs: No results found for: WBC, WBCCOUNT, WBCFETAL, HGB, HCT, PLATELET, MCV No results found for: SODIUM, POTASSIUM, CHLORIDE, CO2, BUN, CREATSERUM, GLUCOSE No results found for: ALT, TRANSFERASEA, AST, GGT, GAMMAGT, ALKPHOS, BILITOTAL, BILIDIRECT No results found for: TSH, YDS85CVF, IIT17VZV, TSHBASELINE, TSHULTRASEN, T3FREE, C7KHLBOKI, Y1OOIQY, G3XOQXXE, T4FREE, TPOAB documented in this encounter [facility] 06-30-2022 Instructions Judah Haywood MD - 06/30/2022 8:40 AM EDT Images from the original note were not included. Store your prescribed pain medication in a locked cabinet or in an area only accessible to you. When you no longer need your prescribed pain medication, dispose of it immediately by one of the safe methods listed below: TAKE BACK PROGRAM: A drug take-back program is the best method to dispose of un-needed opioids safely. You can locate the take-back program closest to you @ https://takebackday.[place].gov under the COLLECTION SITE BUILDING MAINTENANCE WORKER tab. Never dispose of un-needed medications down the sink or toilet. Instead, crush the medication and mix with damp coffee grounds or cat litter, place in a sealed plastic freezer bag, and dispose of in your regular trash. Your Medical/Oncology Team Doctor: Samantha Hendricks MD BRAIN: Georgiana Benítez PA-C Primary Nurses: LUNA CastroN, RN, LUNA KrishnanN, RN, LUNA QuanN RN We are available to take calls Wednesday-Wednesday 8:00am-4:30pm. During non-business hours and holidays phone calls will be managed by after-hours KWAME/Jayson RN's. Please allow at least 10 business days for your team to complete any paperwork. When requesting medication refills, please try to provide as much notice as possible (5 days) in order to ensure that you do not run out of medication. n documented in this encounter [facility] 04-07-2022 Instructions SETH Maza - 04/07/2022 5:01 PM EDT 1. You appear cancer free today based on your history, physical and breast exam 2. Your next mammogram is due December 2022 3. It is recommended hat you continue to moisturize the skin on the irradiated breast daily 4. Please follow up here as needed. Continue to follow up with your other oncology providers. 5. Please continue your regular check ups with your other breast cancer physicians as well as your primary care physician for regular health maintenance. 6. It was a pleasure to see you today and please call [phone] if you have any questions Dr. Flores Lyles MD & SETH Winters [facility] Radiation Oncology [phone] documented in this encounter [facility] 04-07-2022 History of Present illness Narrative RADIATION ONCOLOGY FOLLOW-UP VISIT Yumi Saravia Date of Service: 04/07/2022 Chief Complaint Patient presents with Follow-up for radiation therapy completed 04/23/2020 for RIGHT sided breast cancer. Yumi Saravia, a 61 y.o. female, was seen for a follow-up visit today for her RIGHT breast pathologic stage 0, (pTis, pNx) intermediate nuclear grade, DCIS, ER positive (100%), MA positive (98%) s/p lumpectomy on 02/09/20. Final pathology: intermediated grade, DCIS, cribiform and solid with comedo necrosis and microcalcifications; at least 2.0 cm size; closest margin negative (inferior); fibrocystic change with apocrine metaplasia, and usual ductal hyperplasia. She completed radiation therapy in our department on 04/23/20. We treated her RIGHT whole breast to a total dose of 4256 cGy in 16 fractions. DIAGNOSIS: RIGHT breast cancer pathologic stage 0, (pTis, pNx) intermediate nuclear grade, DCIS, ER positive (100%), MA positive (98%) HISTORY OF PRESENT ILLNESS: DURATION SINCE TREATMENT: ~1 year, 11 months LAST CLINIC VISIT: 08/08/21 Interval History: 08/13/21: hold Exemestane for 2 weeks d/t feet pain. 09/03/21: Switched back to Tamoxifen. 12/02/21: f/u with Georgiana Benítez PA-C of [facility]. Decrease tamoxifen to 10 mg d/t increase fatigue. RAFFI. RTC 7 months 01/01/22: Bilateral screening mammogram wHilary Beckett ([facility]): no mammographic evidence of malignancy. BIRADS 2- benign Yumi Saravia is being seen in clinic today, unaccompanied for routine follow up. She reports doing well overall since we last saw her. She notes good energy, but this does fluctuates with her fibromyalgia. In regards to her breasts, she denies any pain bilaterally, visible or palpable dominant masses or overlying skin changes bilaterally. She denies any nipple changes or discharge bilaterally. She denies any axillary or supraclavicular lymphadenopathy bilaterally. She states she continues to moisturize the treated area a couple times a week. She is overall content with the cosmetic appearance of her breast. 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 She notes she has good ROM in her right shoulder. She denies any swelling in either arm. She is currently on Tamoxifen and tolerating it well. She denies any new headaches, vision changes, chest pain, cough, sob, abdominal pain, nausea/vomiting, new numbness/tingling, focal weakness, ataxia or arthralgias.. She reports her appetite has been good. She denies any bowel or bladder issues. No other complaints. Oncology History: Yumi Saravia history begins an abnormal mammogram 12/22/2019, diagnostic mammogram showed loosely grouped calcification in the posterior 3:00 position, 6 cm from the nipple. She underwent core biopsy 01/16/20, final path showed DCIS, intermediate grade, ER/MA strongly positive. Breast MRI on 01/25/2020 showed segmental enhancement in the right breast at 3:00 measuring 4.5 cm AP x 2.8 cm TRV x 2.1 cm CC with no evidence of nipple, skin, or chest wall involvement. It was suggested that surgery be defrred due to COVID 19 pandemic and she was referred to local Medical Oncologist. 01/29/2020 [facility] - second opinion reading COMPARISON: Screening mammogram 03/01/2018, 12/18/2016, and 11/06/2015. 12/22/2019 BILATERAL SCREENING MAMMOGRAM WARREN: There are scattered fibroglandular tissue. There are calcifications in the medial middle third of the right breast.There is a biopsy marker in the superior middle third of the left breast. There is no mass, distortion, or suspicious calcification identified in the left breast. 01/08/2020 DIAGNOSTIC RIGHT MAMMOGRAM with WARREN. There are pleomorphic calcifications in a segmental distribution within the medial middle third of the right breast at 3:00 4-9 cm from the nipple measuring 4.8 cm AP x 2.3 cm TRV x 1.7 cm CC. 01/16/2020 RIGHT AXILLARY ULTRASOUND: Limited ultrasound of the right axilla shows normal-appearing lymph nodes. 01/16/2020 STEREOTACTIC RIGHT BREAST BIOPSY: Imaging shows targeting of the calcifications in the medial right breast. The specimen radiograph shows 5 core samples with calcifications in 4 specimens. Postprocedure CC and LM views of the right breast show satisfactory position of the coil-shaped HydroMark clip with calcifications anterior, posterior, and medial to the clip. 01/16/2020 Right Breast stereotactic biopsy, 3 o'clock, middle depth,Pathology Report ([facility] reading); Ductal carcinoma in situ (DCIS) in 3 core fragments, 0.4 cm in greatest length. Intermediate nuclear grade, cribriform pattern with central (comedo) necrosis. Estrogen Receptor Positive (100%), Progesterone Receptor Positive (98%) Microcalcifications present in association with DCIS. 01/25/2020 New patient Tele visit by local Medical Oncologist, Dr. Samir Porras. Plan: Given patient's histology and MRI findings, it is very reasonable to start her on hormonal therapy and consider surgery in 2-3 months. Started on letrozole 2.5 mg chemo tablet, Quantity: 90 tablet, Refills: 1, 2.5 mg, oral, Daily. 01/25/2020 Juana Burrell. Local NOCTURNIST PHYSICIAN/OB office. Patient called asking for referral for [facility]. Patient was recently seen by Dr. Brock (breast surgeon) and diagnosed with breast cancer and patient desires second opinion. 01/25/2020 MRI BILATERAL BREAST: Interpretation of the outside MRI is limited due to differences in technique, differences in sequences, lack of kinetic data, and lack of postprocessingability. There are scattered fibroglandular tissue with mild symmetric background parenchymal enhancement. There are segmental nonmass enhancement in the medial middle third of the right breast measuring 4.7 cm AP x 2.3 cm TRV. There are postbiopsy changes in the central aspect of the calcifications containing the clip. No mass or suspicious enhancement identified in the left breast. No abnormal-appearing internal mammary lymph nodes are identified. No abnormal-appearing axillary lymph nodes are identified. IMPRESSION: 1. Biopsy-proven ductal carcinoma in situ on stereotactic biopsy of calcifications in the right breast at 3:00, 6 cm from the nipple. The calcifications span 4.8 cm AP x 2.3 cm TRV x 1.7 cm CC. This corresponds with the nonmass enhancement identified on MRI with similar measurements. No additional suspicious finding is identified in the right breast. 2. No abnormal-appearing right axillary lymph nodes are identified on ultrasound or MRI. 3. No mammographic or MRI evidence of malignancy in the left breast. 01/31/2020 New patient visit at [facility]: Dr. Arriola, Dr. Lyles and Dr. Hutchison. 02/09/20: Right breast Lumpectomy on 02/09/20([facility]), pathology: DCIS, cribiform and solid with comedo necrosis and microcalcifications; intermediated grade, at least 2.0 cm size; closest margin inferior, <0.5mm; negative on excision of inferior margin. fibrocystic change with apocrine metaplasia, and usual ductal hyperplasia. 04/23/20: Completed radiation Right whole breast to a total dose of 4256 cGy in 16 fractions. 05/10/20: New patient visit with medical oncologist, Dr. Hendricks; Tamoxifen to be started. 03/06/[address] Hendricks. Due to her increased fatigue and arthralgias, Tamoxifen decreased. 03/26/2021 Patient changed to Tamoxifen. 04/10/2021 Patient changed to Anastrozole. 06/02/2021 Patient starting Exemestane. REVIEW OF SYSTEMS: 10 point Review of Systems was performed today with positive findings and pertinent negatives in the HPI. Specifically does not voice any complaints suspicious for recurrence or metastatic disease. MEDICAL / SURGICAL / SOCIAL HISTORY I have reviewed Yumi Saravia medical, surgical and other pertinent history in detail, and have updated medication and allergy information in the computerized patient record. Medical History Past Medical History: Diagnosis Date DCIS (ductal carcinoma in situ) 01/16/2020 right breast - ER/MA+ Fibromyalgia History of cancer Hot flashes Hypertension Kidney stones 12/2019 Pneumonia 12/2019 negative for covid-19 Renal insufficiency Severe headache Uterine fibroid Surgical History: Past Surgical History: Procedure Laterality Date BREAST BIOPSY Right 01/16/2020 WOLFGANG AND BSO 2014 OTHER SURGICAL 2005 spinal fusion Lower soine SECTION 1994 SECTION 1990 GALL BLADDER SURGERY KNEE SURGERY scope surgeries Social History: No changes Family History: Family History Problem Relation Age of Onset Cancer Mother 80 squamous Colorectal Cancer Father 80 Cancer Brother 80 foot Cancer Maternal Grandfather 40 testicular Cancer Paternal Grandfather 70 kidney Ovarian Cancer Paternal Aunt 63 Breast Cancer Paternal Great Grandmother 60 Skin Cancer Paternal Uncle Breast Cancer Cousin 50 maternal second cousin ALLERGIES / MEDICATIONS Medications and allergies reviewed/updated in computerized patient record. Allergies: Demerol hcl [meperidine] and Sulfa antibiotics Medications: Current Outpatient Medications Medication Sig Dispense Refill Ascorbic Acid (VITAMIN C PO) Take by mouth. atenolol 25 MG tablet Take 25 mg by mouth daily. DULoxetine [address] Particles capsule DR Take 60 mg by mouth daily. folic acid 1 MG tablet Take 1 mg by mouth daily. nortriptyline 50 MG capsule Take 50 mg by mouth At bedtime. tamoxifen 20 MG tablet Take 1 tablet by mouth daily. Dx C50.919 90 tablet 3 traMADol 50 MG tablet Take 50 mg by mouth 2 (two) times a day. vitamin E 400 units capsule Take 400 Units by mouth daily. No current facility-administered medications for this visit. PHYSICAL EXAM Physical Exam: BP 138/74 (BP Location: Left arm, BP Position: Sitting) Pulse 91 Temp 98.7 F (37.1 C) (Infrared) Resp 16 Wt 105.1 kg (231 lb 12.8 oz) SpO2 94% BMI 33.26 kg/m Smoking Status Former Smoker Performance status: Karnofsky scale 90 (ECOG grade 0) Performs normal activity with minor effort CONSTITUTIONAL: Well developed, well nourished female, who looks her stated age of 61 y.o.. No acute distress. HEENT: Normocephalic and atraumatic. Eyes: Pupils are equal, round, and reactive to light and accomodation. Sclerae are anicteric. NECK: Supple, non-tender, with no lymphadenopathy. There is no supraclavicular lymphadenopathy. CARDIAC: Regular rate and rhythm. No murmurs, rubs or gallops. PULMONARY/CHEST: Lungs are clear to auscultation bilaterally. No wheezes, rhonchi or rales noted. BREAST: Examined sitting and supine positions. Essentially symmetrical in size and contour. Right breast s/p medial lumpectomy; no dominant or palpable masses and a normal nipple areolar complex. She has mild tenderness on exam along the right mid anterior serratus. Left breast with no dominant or palpable masses and a normal nipple areolar complex. Excellent cosmesis. AXILLA: No lymphadenopathy. ABDOMINAL: Abdomen soft, non-tender, non-distended. No guarding, rebound. BACK: Non-tender to percussion. EXTREMITIES: Full range of motion in upper extremities, with normal strength equally and symmetrically. No cyanosis or clubbing or edema. SKIN: Skin is warm and dry. She is not diaphoretic. NEUROLOGIC EXAM: Alert and oriented. Speech is fluent. Gait and posture are steady. PSYCHIATRIC: Appropriate mood and affect for her clinical situation. RADIOLOGY Imagin01/01/2022 Bilateral diagnostic mammogram. BILATERAL DIGITAL SCREENING MAMMOGRAM 3D/2D WITH CAD: 01/01/2022 CLINICAL: Encounter For Screening Mammogram For Breast Cancer. Current study was also evaluated with a Computer Aided Detection (CAD) system. Comparison is made to exams dated: 12/31/2020 mammogram, 10/01/2020 mammogram, 02/06/2020 mammogram, 01/16/2020 mammogram - [facility], 01/08/2020 mammogram, and 12/22/2019 mammogram - [facility]. Two view 3D digital tomosynthesis as well as C-view (synthetic 2D reconstruction with CAD) were performed. There are scattered fibroglandular elements in both breasts. There are stable post operative findings right breast. No suspicious masses, calcifications, or other findings are seen in either breast. There has been no significant interval change. IMPRESSION: BENIGN There is no mammographic evidence of malignancy. A 1 year screening mammogram is recommended. I have personally reviewed the images and agree with and / or edited the report transcribed. Isaac Tineo M.D. sj,lj/:01/01/2022 09:45:52 ASSESSMENT / PLAN Assessment: Here for f/u visit, 6 months since completing adjuvant radiotherapy. 61 y.o. 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 Final pathology: intermediated grade, DCIS, cribiform and solid with comedo necrosis and microcalcifications; at least 2.0 cm size; closest margin negative (inferior); fibrocystic change with apocrine metaplasia, and usual ductal hyperplasia. She completed radiation therapy in our department on 04/23/20. We treated her Right whole breast to a total dose of 4256 cGy in 16 fractions. At 1 year, 11 months she has an excellent cosmesis. Her current Performance status: Karnofsky scale 90 (ECOG grade 0) Performs normal activity with minor effort. Based on the clinical exam and review of imaging, She has no clinical evidence of in breast recurrence or new contralateral disease and she does not voice any symptoms of distant disease. She is taking Tamoxifen and reports she is tolerating the side effects. Plan: Breast Cancer: She is to continue follow-up visits with surgical (Dr. Irene Brock), medical oncologist (Dr. Hendricks) and radiation oncologist (Dr. Lyles), alternating every 3 to 6 months as directed by individual oncology group. Skin Care: We reviewed on going care of the treated breast and to continue moisturizing the skin and use sunscreen when outdoors. Tamoxifen: To continue Tamoxifen as directed. Mammogram: Previous Annual bilateral diagnostic mammogram on 01/01/22 at [facility] showed benign findings (BIRADS 2). She will be due 12/2022 which her surgeon will order. I have requested that she has the report and imaging sent to us. We recommend she have her mammograms performed yearly, or as indicated. Health Maintenance: She has DEXA scheduled on 12/02/2021. Yearly appointments with Primary Care for wellness checks and routine labs as indicated based on medical history. Appointments more frequently with Primary Care as needed or at the discretion of the PCP. Next Appointment: Patient is to contact us with any questions or concerns at any time. Otherwise she is to return for follow up with us as needed. We continue to recommend she follow up with her other oncology providers regularly. She is agreeable to the plan set forth. Her follow up was 20 minutes in duration, 50% of which was spent teaching, counseling, and coordinating care going forward. Sachi Mesa, FRAMER-HOME HEALTH CLINICAL SUPERVISOR [facility] Radiation Oncology [phone] ATTENDING PHYSICIAN ATTESTATION I evaluated this patient together with the nurse practitioner and independently confirmed the history and physical exam findings. I agree with the documented history and physical exam findings. I have personally reviewed all the breast imaging, other diagnostic images, pathology reports, and laboratory studies. I agree with the documented assessment and plan that I formulated and discussed with the patient. I have reviewed and edited this document as appropriate. Briefly, this is very pleasant 61 y.o. 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 On exemestane. NO evidence of recurrence. She is asked to return or contact me in the interim prior to her next scheduled follow up visit should any new concerns arise. She is also counseled to continue her regular check ups with her other involved physicians as well as primary care physician for regular health maintenance. The patient appeared to have a good understanding of all that was discussed and her questions appeared to be answered to her satisfaction. Thank you for involving us in the care of this patient and please contact us with any questions regarding this evaluation and the recommendations. Flores Lyles MD Follow-up (for radiation therapy completed 04/23/2020 for RIGHT sided breast cancer.) Pain Assessment: Presence of Pain: complains of pain/discomfort Pain Location: breast, right Pain Management Interventions: declines intervention Pain Frequency: occasional Pain Quality: soreness Factors That Aggravate Pain: palpation Fatigue Assessment: Fatigue Fatigue: Absent or within normal limits. Breast changes: Denies concerns or issues to the right breast. Reports moisturizing a couple of times a week with Lotion. Swelling: No Arm concerns: No Coping issues: No Patient concerns: None at this time. Recommendations: Moisturize daily. Call clinic should questions or concerns arise. Yumi Saravia was offered and declined a Medical Marine Consultant for this exam/procedure/test 04/07/2022. Report given to Sachi Mesa APRN-HOME HEALTH CLINICAL SUPERVISOR. Francie Vanegas RN documented in this encounter [facility] Evaluation note Diagnosis Ductal carcinoma in situ (DCIS) of right breast- Primary [facility] Diagnosis Ductal carcinoma in situ (DCIS) of right breast- Primary [facility] Diagnosis Encounter for well adult exam without abnormal findings Wellness examination documented in this encounter [facility] [employer] Phone: evaluation note* Diagnosis Other fatigue- Primary Weight gain Abnormal weight gain Ductal carcinoma in situ (DCIS) of right breast [facility] Diagnosis Elevated LFTs Other abnormal blood chemistry Other fatigue Weight gain Abnormal weight gain Ductal carcinoma in situ of right breast Carcinoma in situ of breast documented in this encounter [employer] Phone: evaluation note* Diagnosis Ductal carcinoma in situ (DCIS) of right breast- Primary 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, estrogen receptor positive, unspecified laterality Postmenopausal Asymptomatic postmenopausal status (age-related) (natural) Dense breast Inconclusive mammogram documented [facility] Diagnosis OAG (open angle glaucoma) suspect, high risk, bilateral- Primary Age-related nuclear cataract, bilateral Senile nuclear sclerosis Dry eye syndrome of bilateral lacrimal glands Tear film insufficiency, unspecified documented in this encounter [facility] Summary Purpose Family History No Family History Records FoundNo Family History Records FoundNo Family History Records FoundNo Family History Records FoundNo Family History Records Found Advance Directives Documents on File Type Date Recorded Patient Manager Case Management Expl anation ACP-Power of Account Leader 07/30/2020 9:51 AM Latest Code Status on File Code Status Date Activated Date Inactivated Comments Full Code 08/27/2020 12:14 PM 08/27/2020 5:32 PM Full Code 12/19/2019 12:14 PM 12/19/2019 5:20 PM Full Code 07/28/2013 11:58 AM 07/30/2013 12:14 PM Documents on File Type Date Recorded Patient Manager Case Management Expl anation Advance Directives and Living Will Power of Account Leader Latest Code Status on File Code Status Date Activated Date Inactivated Comments Full Code 07/28/2013 11:58 AM 07/30/2013 12:14 PM Latest Code Status on File Code Status Date Activated Date Inactivated Comments Full Code 12/19/2019 12:14 PM 12/19/2019 5:20 PM Documents on File Type Date Recorded Patient Manager Case Management Expl anation Advance Directives and Living Will Power of Account Leader Latest Code Status on File Code Status Date Activated Date Inactivated Comments Full Code 12/19/2019 12:14 PM Full Code 07/28/2013 11:58 AM 07/30/2013 12:14 PM Latest Code Status on File Code Status Date Activated Date Inactivated Comments Full Code 07/28/2013 11:58 AM 07/30/2013 12:14 PM Latest Code Status on File Code Status Date Activated Date Inactivated Comments Full Code 12/19/2019 12:14 PM 12/19/2019 5:20 PM Documents on File Type Date Recorded Patient Manager Case Management Expl anation ACP-Advance Directive ACP-Power of Account Leader ACP-Power of Account Leader 07/30/2020 9:51 AM Documents on File Type Date Recorded Patient Manager Case Management Expl anation ACP-Advance Directive ACP-Power of Account Leader ACP-Power of Account Leader 07/30/2020 9:51 AM Latest Code Status on File Code Status Date Activated Date Inactivated Comments Full Code 08/27/2020 12:14 PM Full Code 12/19/2019 12:14 PM 12/19/2019 5:20 PM Documents on File Type Date Recorded Patient Manager Case Management Expl anation ACP-Power of Account Leader 07/30/2020 9:51 AM Latest Code Status on File Code Status Date Activated Date Inactivated Comments Full Code 08/27/2020 12:14 PM 08/27/2020 5:32 PM Code Status History Code Status Date Activated Date Inactivated Comments Full Code 12/19/2019 12:14 PM 12/19/2019 5:20 PM Full Code 07/28/2013 11:58 AM 07/30/2013 12:14 PM Assessments Diagnosis Vaginal irritation Unspecified noninflammatory disorder of vagina Diagnosis Ureteral calculus Calculus of ureter Diagnosis Kidney stone Calculus of kidney Diagnosis Ureteral calculus Calculus of ureter Diagnosis Ureteral stone with hydronephrosis Calculus of ureter Diagnosis Fever, unspecified fever cause Pneumonia due to organism Pneumonia due to other specified organism Diagnosis Screening mammogram, encounter for Diagnosis Breast calcification, right Other (abnormal) findings on radiological examination of breast Diagnosis Breast calcification, right Other (abnormal) findings on radiological examination of breast Diagnosis Renal stone Calculus of kidney Diagnosis Renal stone Calculus of kidney Pre-op testing Preoperative examination, unspecified Diagnosis Renal stone Calculus of kidney Diagnosis Wellness examination Diagnosis Renal calculus Calculus of kidney Diagnosis Renal stone Calculus of kidney Pre-op testing Preoperative examination, unspecified Discharge Instructions * Instructions* Asad Dotson MD - 12/17/2019 Please take all medications as prescribed. Please follow up with your primary care physician by calling today, or as soon as possible, for thefirst available appointment. If you do not have a primary care physician, please contact a physician or clinic listed below today to establish care. Please return to the emergency department IMMEDIATELY if you develop uncontrolled fevers, uncontrolled vomiting, change in symptoms, worsening of symptoms, or ANY other concerns. * Attachments The following attachments cannot be sent through Care Everywhere. * Kidney Stone (French) documented in this encounter* Instructions* Erin Markham RN - 12/19/2019 SAME DAY SURGERY DISCHARGE INSTRUCTIONS 1. Do not drive or operate hazardous machinery for 24 hours. 2. Do not make important personal or business decisions for 24 hours. 3. Do not drink alcoholic beverages for 24 hours. 4. Do not smoke tobacco products for 24 hours. 5. Eat light foods (Jell-O, soups, etc....) and drink plenty of fluids (water, Sprite, etc...) up to 8 glasses per day, as you can tolerate. 6. Limit your activities for 24 hours. Do not engage in heavy work until your surgeon gives you permission. 7. Report the following signs or any questions regarding your physical condition to your surgeon immediately: Excessive swelling of, or around the wound area. Redness. Temperature of 100 degrees (F) or above. Excessive pain. 8. Call your surgeon for any questions regarding your surgery. CYSTOSCOPY DISCHARGE INSTRUCTIONS Possible burning during urination and/or blood tinged urine. Drink 6-8 glasses of water for the next day or so. (This helps to flush the urinary tract.) Call Dr. Mcarthur ([phone]) if you develop: Fever over 100 degrees Prolonged soreness/pain Unusual bleeding/bruising Unable to urinate or if urine is bloody You cannot pass urine 8 hours after the test. You have pain in your belly or your back just below your rib cage. (This is called flank pain.) You have frequent urge to urinate but can pass only small amounts of urine. Call Dr. Mcarthur office for follow-up appointment ([phone]). documented in this encounter* Attachments The following attachments cannot be sent through Care Everywhere. * Pneumonia (French) * Fever: General Info (French) documented in this encounter* Instructions* Kristal Escalante RN - 08/27/2020 SAME DAY SURGERY DISCHARGE INSTRUCTIONS 1. Do not drive or operate hazardous machinery for 24 hours. 2. Do not make important personal or business decisions for 24 hours. 3. Do not drink alcoholic beverages for 24 hours. 4. Do not smoke tobacco products for 24 hours. 5. Eat light foods (Jell-O, soups, etc....) and drink plenty of fluids (water, Sprite, etc...) up to 8 glasses per day, as you can tolerate. 6. Limit your activities for 24 hours. Do not engage in heavy work until your surgeon gives you permission. 7. Report the following signs or any questions regarding your physical condition to your surgeon immediately: Excessive swelling of, or around the wound area. Redness. Temperature of 100 degrees (F) or above. Excessive pain. 8. Call your surgeon for any questions regarding your surgery. CYSTOSCOPY DISCHARGE INSTRUCTIONS Possible burning during urination and/or blood tinged urine. Drink 6-8 glasses of water for the next day or so. (This helps to flush the urinary tract.) Call Dr. Mcarthur ([phone]) if you develop: Fever over 100 degrees Prolonged soreness/pain Unusual bleeding/bruising Unable to urinate or if urine is bloody You cannot pass urine 8 hours after the test. You have pain in your belly or your back just below your rib cage. (This is called flank pain.) You have frequent urge to urinate but can pass only small amounts of urine. Call Dr. Mcarthur office for follow-up appointment ([phone]). documented in this encounter History of Present Illness * Erin Markham RN - 12/19/2019 2:45 PM EDT Patient ambulates to bathroom; gait steady; voids without difficulty and returns to sit up in chair. * Katey Oscar RN - 12/19/2019 2:18 PM EDT Report given to Fernandez Markham RN * Zayda Zamora RN - 12/18/2019 12:36 PM EDT Patient instructed on the pre-operative, intra-operative, and post-operative process. Patient's surgery arrival time to the hospital and surgery start time confirmed for the day of surgery. Patient instructed on NPO status. Medication instructions reviewed with patient. Pre operative instruction sheet reviewed over the phone. Instructed pt to take topamax, cymbalta, and atenolol with a small sip of water prior to arriving to the hospital the day of surgery. * Zayda Zamora RN - 12/18/2019 11:33 AM EDT Attempted PAT phone call; no answer; unable to leave a message. Voicemail box is full documented in this encounter* Erin Markham RN - 08/16/2020 11:33 AM EST patient instructed to stop CBD Gummies 5 days before surgery; instructed to take Atenolol with small sip of water the morning of surgery. * Erin Markham RN - 08/16/2020 11:30 AM EST Patient instructed on the pre-operative, intra-operative, and post-operative process. Patient's surgical procedure and day of surgery confirmed. Patient instructed on NPO status. Medication instructions reviewed with patient. Pre operative instruction sheet reviewed with patient per PAT phone interview. Appointment time and instructions for pre-op COVID testing given to patient. * Erin Markham RN - 08/16/2020 11:02 AM EST Attempted PAT phone call; no answer; message left to return PAT phone call. documented in this encounter Reason for Referral Status Reason Specialty Diagnoses / Procedures Referre d By Contact Referred To Contact Open Cardiology Diagnoses Ureteral stone with hydronephrosis Pre-op testing Procedures EKG 12 Lead Jus Torres, FRAMER - HOME HEALTH CLINICAL SUPERVISOR [address] [place] [address] Status Reason Specialty Diagnoses / Procedures Referre d By Contact Referred To Contact Closed Radiology Diagnoses Screening mammogram, encounter for Procedures MATTHEW DIGITAL SCREEN W OR WO CAD BILATERAL HC MAMMOGRAM DIGITAL SCREEN BILAT Georgina Burrell APRN - CNM [address] [place] [address] [address] [place] [address] [facility] [place] [id number] Status Reason Specialty Diagnoses / Procedures Referred By Contact Referred To Contact Not Required - [facility] Radiology Diagnoses Breast calcification, right Procedures US BREAST COMPLETE RIGHT HC US BREAST COMP Georgina Burrell APRN - CNM [address] [place] [address] [facility] Ultrasound [address] [place], [place] [id number] Status Reason Specialty Diagnoses / Procedures Referre d By Contact Referred To Contact Open Cardiology Diagnoses Renal stone Pre-op testing Procedures EKG 12 Lead Jus Torres FRAMER - HOME HEALTH CLINICAL SUPERVISOR [address] [place] [address] Specialty Diagnoses / Procedures Referred By Contac t Referred To Contact Radiology Diagnoses Elevated LFTs Other fatigue Weight gain Ductal carcinoma in situ of right breast Procedures US ABDOMEN LIMITED Georgiana Benítez PA [address] [place] [address] [place] [address] Referral ID Status Reason Start Date Expiration Date Visits Re quested Visits Authorized [id number] Open 01/14/2023 01/14/2024 1 1 Specialty Diagnoses / Procedures Referred By Contac t Referred To Contact Diagnoses 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, estrogen receptor positive, unspecified laterality Postmenopausal Dense breast Procedures MRI BREAST BILATERAL WITH AND WITHOUT CONTRAST CHG MRI BREAST WITHOUT&WITH CONTRAST W/CAD BILATERAL Georgiana Benítez PAC [address] [facility] [address] [place] [address] Referral ID Status Reason Start Date Expiration Date V isits Requested Visits Authorized [id number] New Request 07/05/2023 07/29/2024 1 1 Specialty Diagnoses / Procedures Referred By Contac t Referred To Contact Diagnoses 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, estrogen receptor positive, unspecified laterality Postmenopausal Dense breast Procedures MAMMO DIAGNOSTIC WITH WARREN BILATERAL Georgiana Benítez PAC [address] [facility] [address] [place] [address] Referral ID Status Reason Start Date Expiration Date V isits Requested Visits Authorized [id number] New Request 07/05/2023 07/29/2024 1 1 Additional Source Comments INFORMATION SOURCE (unrecogn ized section and content) DATE CREATED AUTHOR 09/08/2019 [facility] DATE CREATED AUTHOR AUTHOR'S ORGANIZ ATION 08/15/2020 [facility] DATE CREATED AUTHOR AUTHOR'S ORGANIZ ATION 01/22/2023 [facility] DATE CREATED AUTHOR AUTHOR'S ORGANIZ ATION 07/28/2023 [facility] DATE CREATED AUTHOR AUTHOR'S ORGANIZ ATION 09/10/2023 [facility] Reason for Visit (unrecogniz ed section and content) Reason Comments Abdominal Pain lower Status Reason Specialty Diagnoses / Procedures Referre d By Contact Referred To Contact Diagnoses Left ureteral calculus LEFT URETERAL CALCULUS Procedures MA CYSTO/URETERO W/LITHOTRIPSY &INDWELL STENT INSRT CYSTOSCOPY URETEROSCOPY LASER, HLL Paramjit Mcarthur MD [address] [facility], [address] [place] [address] [facility] Reason Comments Fever started today Generalized Body Aches Post-op Problem cystoscopy on 12/18 w petr Mahoney Status Reason Specialty Diagnoses / Procedures Referre d By Contact Referred To Contact Closed Radiology Diagnoses Screening mammogram, encounter for Procedures MATTHEW DIGITAL SCREEN W OR WO CAD BILATERAL HC MAMMOGRAM DIGITAL SCREEN BILAT Georgina Burrell APRN - SHIRA [address] [place] [address] [place] [address] [place] [phone] Status Reason Specialty Diagnoses / Procedures Referre d By Contact Referred To Contact Closed Radiology Diagnoses Breast calcification, right Procedures MATTHEW DIGITAL DIAGNOSTIC W OR WO CAD RIGHT MATTHEW DIAGNOSTIC W CAD RIGHT HC MAMMO DGX UNILATERAL INCL CAD IF PERF Georgina Burrell, KD - SHIRA [address] [place] [address] [address] [place] [address] [place] [phone] Status Reason Specialty Diagnoses / Procedures Referred By Contact Referred To Contact Not Required - [facility] Radiology Diagnoses Breast calcification, right Procedures US BREAST COMPLETE RIGHT HC US BREAST COMP Georgina Burrell APRN - CNAdams [address] [place] [address] [address] [place] [address] [facility] Ultrasound [address] [place] [id number] Status Reason Specialty Diagnoses / Procedures Re ferred By Contact Referred To Contact Diagnoses Renal calculus, left LEFT RENAL CALCULUS Procedures MA FRAGMENT KIDNEY STONE/ ESWL ESWL EXTRACORPOREAL SHOCK WAVE LITHOTRIPSY Paramjit Mcarthur MD [address] [facility], [address] [place] [address] [facility] Reason Comments Follow-up for radiation therap y completed 04/23/2020 for RIGHT sided breast cancer. Reason Comments Follow-up tamoxifen Reason Comments Follow-up Specialty Diagnoses / Procedures Referred By Contac t Referred To Contact Radiology Diagnoses Elevated LFTs Other fatigue Weight gain Ductal carcinoma in situ of right breast Procedures US ABDOMEN LIMITED Georgiana Benítez, JOSÉ [address] [facility] [address] [place] [address] Referral ID Status Reason Start Date Expiration Date Visits Re quested Visits Authorized [id number] Open 01/14/2023 01/14/2024 1 1 Reason Comments Follow-up tamoxifen Care Teams (unrecognized sec tion and content) Surface Plate Inspector Relationship Specialty Start Date End Date Ariane Olivas MD PCP - General Internal Medicine 01/25/20 Georgina Burrell CNM Certified Nurse Manager Warehouse 01/25/20 Surface Plate Inspector Relationship Specialty Start Date End Date Ariane Olivas MD [address] [facility], [place] [address] PCP - General 08/22/12 Surface Plate Inspector Relationship Specialty Start Date End Date Ariane Olivas MD PCP - General Internal Medicine 01/25/20 Georgina Burrell CNM Certified Nurse Manager Warehouse 01/25/20 Surface Plate Inspector Relationship Specialty Start Date End Date Ariane Olivas MD [address] [facility], [place] [address] PCP - General 08/22/12 Surface Plate Inspector Relationship Specialty Start Date End Date Ariane Olivas MD PCP - General Internal Medicine 01/25/20 Georgina Burrell CNM Certified Nurse Manager Warehouse 01/25/20 Surface Plate Inspector Relationship Specialty Start Date End Date Ariane Olivas MD [address] [facility], [address] [place] [id number] PCP - General 08/22/12 Surface Plate Inspector Relationship Specialty Start Date End Date Ariane Olivas MD PCP - General Internal Medicine 01/25/20 Georgina Burrell CNM Certified Nurse Manager Warehouse 01/25/20 Surface Plate Inspector Relationship Specialty Start Date End Date Ariane Olivas MD PCP - General Internal Medicine 01/25/20 Georgina Burrell CNM Certified Nurse Manager Warehouse 01/25/20 FOR RECORDS PERTAINING TO PATIENTS WHO ARE OR HAVE BEEN ENROLLED IN A CHEMICAL DEPENDENCY/SUBSTANCEABUSE PROGRAM, SOME INFORMATION MAY BE OMITTED. This clinical summary was aggregated from multiple sources. Caution should be exercised in using it in the provision of clinical care. This summary normalizes information from multiple sources, and as a consequence, information in this document may materially change the coding, format and clinical context of patient data. In addition, data may be omitted in some cases. CLINICAL DECISIONS SHOULD BE BASED ON THE PRIMARY CLINICAL RECORDS. [facility] [employer] provides no warranty or guarantee of the accuracy or completeness of information in this document.
== END 2023-09-30 08:51 | disposition home or self-care (01) ==
PROVIDERS: PCP Internal Medicine; Visit Provider Nurse Practitioner
DX: M47.816 Spondylosis without myelopathy or radiculopathy, lumbar region (principal); M79.7 Fibromyalgia
CPT/HCPCS: G0463

== ENCOUNTER 2023-11-04 09:29 | Outpatient (OUT) | payer OTHER, SELFPAY ==
--- OUTSIDE RECORDS SUMMARY | 2023-11-04 09:33 | XMS_ITS | CCD ---
Author Name Unknown Address [address] [place] [address] Organization [facility] Care Team Providers Care Senior Network Architect Name Role Phone Ariane Oilvas Primary Care Provider EL CHAMPION Attending Unavailable [...] Unavailable STASIK, GEORGIANA L Referring Unavailable Raysa EMREY, Ariane Primary Care Provider [phone] Indra SILVA, Georgina Unavailable ARIANE OLIVAS Primary [...] reactions to drug 3 Other (See Comments) [employer] Work Phone: (13 sources) Meperidine Drug Allergy 0 Nausea And Vomiting [facility], [place] (4 sources) Sulfonamides (Antibiotic) Propensity to adverse reactions to drug 3 Other (See Comments) [facility] Giferent Medications Current Medications Medication Drug Class(es) Dates [...] tablet 3 11/18/2021 Active polyethylene glycol 3350 10178 mg powder for oral solution (6 sources) [...] Perimetry studyon 09-28-2023 See note RADIOLOGY [facility] Radiology Study observation (narrative) [facility] OCT OPTIC NERVE OUon 023 OCT OPTIC NERVE OU See note Normal [facility] US ABDOMEN LIMITEDon 023 US ABDOMEN LIMITED [...] DO 01/19/23 Final result Normal [facility] US ABDOMEN LIMITED Specify o rgan? LIVER, GALLBLADDERon 01-19-2023 Hepatomegaly and hepatic steatosis. No focal lesion. Prior cholecystectomy [facility] CONSOLIDATED EXAMINATION: RIGHT UPPER [...] No evidence of right upper quadrant ascites. [facility] CONSOLID[facility] Narciso Burton DO - 01/19/2023 EXAMINATION: [...] hepatic steatosis. No focal lesion. Prior cholecystectomy [facility] Phone: Radiology Study observation (narrative) [facility] Phone: US ABDOMEN LIMITED Specify o rgan? LIVER, GALLBLADDEROrdered By: Narciso Burton on 01-19-2023 [facility] Phone: CALCIUMon 01-12-2023 Calcium [Mass/Vol] 9.5 mg/dL Normal 8.6-10.5 [facility] Comment on above: Performed By: #### H FP, CA, CHM6, MGO #### [facility] (DEFAULT) [address] [place] [address] Calcium [Mass/Vol] 9.5 mg/dL 8.6 - 10. 5 mg/dL [facility] CBC AND ELECTRONIC DIFFon Basophils (Bld) [#/Vol] 0.05 10*3/uL Normal 0.00-0.15 [facility] Comment on above: Order Comment: Chemo Labs Performed By: #### L [id number] #### [facility] (DEFAULT) [address] [place] [address]47 Basophils/100 WBC (Bld) 0.8 % Normal [facility] Comment on above: Order Comment: Chemo Labs Performed By: #### L [id number] #### [facility] (DEFAULT) [address] [place] [address] DIFF STATUS Electronic Differential Normal [facility] Comment on above: Order Comment: Chemo Labs Performed By: #### L [id number] #### [facility] (DEFAULT) [address] [place] [address]65 Eosinophils (Bld) [#/Vol] 0.18 10*3/uL Normal 0.00-0.42 [facility] Comment on above: Order Comment: Chemo Labs Performed By: #### L [id number] #### [facility] (DEFAULT) [address] [place] [address]858 Eosinophils/100 WBC (Bld) 2.8 % Normal [facility] Comment on above: Order Comment: Chemo Labs Performed By: #### L [id number] #### [facility] (DEFAULT) [address] [place] [address] Hematocrit (Bld) [Volume fraction] 44.1 % Normal 34.9-44.3 [facility] Comment on above: Order Comment: Chemo Labs Performed By: #### L [id number] #### [facility] (DEFAULT) [address] [place] [address]18 Hemoglobin (Bld) [Mass/Vol] 14.2 g/dL Normal 11.4-15.2 [facility] Comment on above: Order Comment: Chemo Labs Performed By: #### L [id number] #### [facility] (DEFAULT) [address] [address] Immature Grans % 0.3 % Normal [facility] Comment on above: Order Comment: Chemo Labs Performed By: #### L [id number] #### [facility] (DEFAULT) [address] [address] Immature Grans Absolute < Normal <=0.08 [facility] Comment on above: Order Comment: Chemo Labs Performed By: #### L [id number] #### [facility] (DEFAULT) [address] [address] Lymphocytes (Bld) [#/Vol] 2.60 10*3/uL Normal 1.16-3.51 [facility] Comment on above: Order Comment: Chemo Labs Performed By: #### L [id number] #### [facility] (DEFAULT) [address] [address] Lymphocytes/100 WBC (Bld) 40.3 % Normal [facility] Comment on above: Order Comment: Chemo Labs Performed By: #### L [id number] #### [facility] (DEFAULT) [address] [address] MCV (RBC) [Entitic vol] 94.2 fL Normal 79.6-97.7 [facility] Comment on above: Order Comment: Chemo Labs Performed By: #### L [id number] #### [facility] (DEFAULT) [address] [address] Mean Cell Hgb 30.3 pg Normal 25.9-33.9 [facility] Comment on above: Order Comment: Chemo Labs Performed By: #### L [id number] #### [facility] (DEFAULT) [address] [address] Mean Cell Hgb Conc 32.2 g/dL Normal 31.4-35.9 [facility] Comment on above: Order Comment: Chemo Labs Performed By: #### L [id number] #### [facility] (DEFAULT) [address] [place] [address] Monocytes (Bld) [#/Vol] 0.53 10*3/uL Normal 0.22-0.87 [facility] Comment on above: Order Comment: Chemo Labs Performed By: #### L [id number] #### [facility] (DEFAULT) [address] [place] [address]36 Monocytes/100 WBC (Bld) 8.2 % Normal [facility] Comment on above: Order Comment: Chemo Labs Performed By: #### L [id number] #### [facility] (DEFAULT) [address] [place] [address] Nucleated RBC 0.0 /100 WBC Normal <=0.2 [facility] Comment on above: Order Comment: Chemo Labs Performed By: #### L [id number] #### [facility] (DEFAULT) [address] [place] [address] Platelet mean volume (Bld) [Entitic vol] 9.3 fL Normal 8.5-12.2 [facility] Comment on above: Order Comment: Chemo Labs Performed By: #### L [id number] #### [facility] (DEFAULT) [address] [place] [address]96 Platelets (Bld) [#/Vol] 264 10*3/uL Normal 150-393 [facility] Comment on above: Order Comment: Chemo Labs Performed By: #### L [id number] #### [facility] (DEFAULT) [address] [place] [address] 36090 RBC (Bld) [#/Vol] 4.68 10*6/uL Normal 3.91-5.04 [facility] Comment on above: Order Comment: Chemo Labs Performed By: #### L [id number] #### [facility] (DEFAULT) [address] [place] [address]310 RBC Distribution 12.6 % Normal 10.8-14.9 [facility] Comment on above: Order Comment: Chemo Labs Performed By: #### L [id number] #### [facility] (DEFAULT) [address] [place] [address]26 Segs + Bands Auto 47.6 % Normal [facility] Comment on above: Order Comment: Chemo Labs Performed By: #### L [id number] #### [facility] (DEFAULT) [address] [place] [address] Segs + Bands,Absolute Auto 3.07 K/uL Normal 1.64-7.28 [facility] Comment on above: Order Comment: Chemo Labs Performed By: #### L [id number] #### [facility] (DEFAULT) [address] [place] [address] WBC (Bld) [#/Vol] 6.45 10*3/uL Normal 3.99-11.19 [facility] Comment on above: Order Comment: Chemo Labs Performed By: #### L [id number] #### [facility] (DEFAULT) [address] [place] [address] CHEM 6 (LYTES, BUN CREA)on 0 - Anion gap [Moles/Vol] 12 mmol/L Normal 7-17 [facility] Comment on above: Order Comment: Chemo Labs Performed By: #### H FP, CA, CHM6, MGO #### [facility] (DEFAULT) [address] [place] [address] Chloride [Moles/Vol] 103 mmol/L Normal 98-108 [facility] Comment on above: Order Comment: Chemo Labs Performed By: #### H FP, CA, CHM6, MGO #### [facility] (DEFAULT) [address] [place] [address] CO2 [Moles/Vol] 29 mmol/L Normal 21-31 [facility] Comment on above: Order Comment: Chemo Labs Performed By: #### H FP, CA, CHM6, MGO #### [facility] (DEFAULT) [address] [place] [address] Creatinine [Mass/Vol] 0.92 mg/dL Normal 0.50-1.20 [facility] Comment on above: Order Comment: Chemo Labs Performed By: #### H FP, CA, CHM6, MGO #### [facility] (DEFAULT) [address] [place] [address] GFR/1.73 sq M.predicted among non-blacks MDRD (S/P/Bld) [Vol rate/Area] 71 mL/min/{1.73_m2} Normal >=60 [facility] Comment on above: Order Comment: Chemo Labs Result Comment: Repo rted eGFR is based on the CKD-EPI 2020 equation using creatinine, age, and sex. Performed By: #### H FP, CA, CHM6, MGO #### [facility] (DEFAULT) [address] [place] [address] Potassium [Moles/Vol] 3.6 mmol/L Normal 3.5-5.0 [facility] Comment on above: Order Comment: Chemo Labs Performed By: #### H FP, CA, CHM6, MGO #### [facility] (DEFAULT) [address] [place] [address] 36127 Sodium [Moles/Vol] 140 mmol/L Normal 135-145 [facility] Comment on above: Order Comment: Chemo Labs Performed By: #### H FP, CA, CHM6, MGO #### [facility] (DEFAULT) [address] [place] [address]20 Urea nitrogen [Mass/Vol] 13 mg/dL Normal 7-25 [facility] Comment on above: Order Comment: Chemo Labs Performed By: #### H FP, CA, CHM6, MGO #### [facility] (DEFAULT) [address] [place] [address] Urea nitrogen/Creatinine [Mass ratio] 14 mg/mg Normal [facility] Comment on above: Order Comment: Chemo Labs Performed By: #### H FP, CA, CHM6, MGO #### [facility] (DEFAULT) [address] [place] [address] Anion gap [Moles/Vol] 12 mmol/L 7 - 17 mmol/L [facility] Chloride [Moles/Vol] 103 mmol/L 98 - 10 8 mmol/L [facility] CO2 [Moles/Vol] 29 mmol/L 21 - 31 mmol/L [facility] Creatinine [Mass/Vol] 0.92 mg/dL 0.50 - 1.20 mg/dL [facility] GFR/1.73 sq M.predicted CKD-EPI (S/P/Bld) [Vol rate/Area] 71 - PINF [facility] Comment on above: Reported eGFR is bas ed on the CKD-EPI 2020 equation using creatinine, age, and sex. Potassium [Moles/Vol] 3.6 mmol/L 3.5 - 5.0 mmol/L [facility] Sodium [Moles/Vol] 140 mmol/L 135 - 145 mmol/L [facility] Urea nitrogen [Mass/Vol] 13 mg/dL 7 - 25 mg/dL [facility] Urea nitrogen/Creatinine [Mass ratio] 14 mg/mg [facility] FERRITINon 01-12-2023 Ferritin [Mass/Vol] 189.6 ng/mL 10.0 - 2 91.0 ng/mL [facility] Interpretation and review of laboratory results Normal [facility] Ferritin [Mass/Vol] 189.6 ng/mL Normal 10.0-291.0 [facility] Comment on above: Performed By: #### F T4, TSH, FERIB #### [facility] (DEFAULT) [address] [place] [address]253 HEPATIC FUNCTION PANELon Albumin [Mass/Vol] 4.6 g/dL Normal 3.5-5.0 [facility] Comment on above: Order Comment: Chemo Labs Performed By: #### H FP, CA, CHM6, MGO #### [facility] (DEFAULT) [address] [place] [address] ALP [Catalytic activity/Vol] 67 U/L Normal 32-126 [facility] Comment on above: Order Comment: Chemo Labs Performed By: #### H FP, CA, CHM6, MGO #### [facility] (DEFAULT) [address] [place] [address] ALT [Catalytic activity/Vol] 56 U/L High 9-48 [facility] Comment on above: Order Comment: Chemo Labs Performed By: #### H FP, CA, CHM6, MGO #### [facility] (DEFAULT) [address] [place] [address] AST [Catalytic activity/Vol] 37 U/L Normal 10-39 [facility] Comment on above: Order Comment: Chemo Labs Performed By: #### H FP, CA, CHM6, MGO #### [facility] (DEFAULT) [address] [place] [address] Bilirubin [Mass/Vol] 0.4 mg/dL Normal <1.5 [facility] Comment on above: Order Comment: Chemo Labs Performed By: #### H FP, CA, CHM6, MGO #### [facility] (DEFAULT) [address] [place] [address] Bilirubin.indirect [Mass/Vol] 0.1 mg/dL Normal <0.3 [facility] Comment on above: Order Comment: Chemo Labs Performed By: #### H FP, CA, CHM6, MGO #### [facility] (DEFAULT) [address] [place] [address] Protein [Mass/Vol] 7.3 g/dL Normal 6.4-8.3 [facility] Comment on above: Order Comment: Chemo Labs Performed By: #### H FP, CA, CHM6, MGO #### [facility] (DEFAULT) [address] [place] [address] Albumin [Mass/Vol] 4.6 g/dL 3.5 - 5.0 g/dL [facility] ALP [Catalytic activity/Vol] 67 U/L 32 - 126 U/L [facility] ALT [Catalytic activity/Vol] 56 U/L High 9 - 48 U/L [facility] AST [Catalytic activity/Vol] 37 U/L 10 - 39 U/L [facility] Bilirubin [Mass/Vol] 0.4 mg/dL NINF - 1.5 mg/dL [facility] Bilirubin.direct [Mass/Vol] 0.1 mg/dL NINF - 0.3 mg/dL [facility] Interpretation and review of laboratory results Abnormal [facility] Protein [Mass/Vol] 7.3 g/dL 6.4 - 8.3 g/dL [facility] IRON/IRON BINDING/TRANSFERRI Non 01-12-2023 Interpretation and review of laboratory results Normal [facility] Iron [Mass/Vol] 88 ug/dL [facility] Iron binding capacity [Mass/Vol] 413 [facility] Iron saturation [Mass fraction] 21 % 20 - 55 % [facility] Transferrin [Mass/Vol] 330 mg/dL 200 - 400 mg/dL [facility] Iron [Mass/Vol] 88 ug/dL Normal 40-174 [facility] Comment on above: Performed By: #### L ABTCCPLAV #### [facility] (DEFAULT) [address] [place] [address] Iron Saturation 21 % Normal 20-55 [facility] Comment on above: Performed By: #### L ABTCCPLAV #### [facility] (DEFAULT) [address] [place] [address] 24191 Total Iron Binding Capacity 413 mcg/dL Normal 250-425 [facility] Comment on above: Performed By: #### L ABTCCPLAV #### [facility] (DEFAULT) [address] [place] [address] Transferrin [Mass/Vol] 330 mg/dL Normal 200-400 [facility] Comment on above: Performed By: #### L ABTCCPLAV #### [facility] (DEFAULT) [address] [place] [address] MAGNESIUMon 01-12-2023 Magnesium [Mass/Vol] 2.0 mg/dL Normal 1.6-2.6 [facility] Comment on above: Performed By: #### L ABTCCPLAV #### [facility] (DEFAULT) [address] [place] [address]346 Magnesium [Mass/Vol] 2.0 mg/dL 1.6 - 2 .6 mg/dL [facility] No Panel Informationon 01-12 Interpretation and review of laboratory results Normal [facility] T4 FREEon 01-12-2023 Free T4 [Mass/Vol] 0.97 ng/dL 0.89 - 1. 76 ng/dL [facility] Interpretation and review of laboratory results Normal [facility] Free T4 [Mass/Vol] 0.97 ng/dL Normal 0.89-1.76 [facility] Comment on above: Performed By: #### F T4, TSH, FERIB #### [facility] (DEFAULT) [address] [place] [address] TCCP - Star 01-12-2023 CANCER CARE PROTOCOL Done Normal [facility] Comment on above: Performed By: #### L ABTCCPLAV #### [facility] (DEFAULT) [address] [place] [address] Performed By: #### L ABTCCPGOLD #### [facility] (DEFAULT) [address] [place] [address] 53704 TSHon 01-12-2023 Interpretation and review of laboratory results Abnormal [facility] TSH Qn 6.687 m[IU]/L High [facility] TSH 6.687 uIU/mL High 0.550-4.780 [facility] Comment on above: Performed By: #### F T4, TSH, FERIB #### [facility] (DEFAULT) [address] [place] [address] 36365 VITAMIN D (25-HYDROXY,TOTAL) on 01-12-2023 Interpretation and review of laboratory results Normal [facility] Vitamin D+Metabolites [Mass/Vol] 70.5 ng/mL 30.0 - 100.0 ng/mL [facility] Comment on above: <10 Deficiency 10-29 Insufficiency 30-100 Optimal Level >100 Possible Toxicity Vitamin D values have been shown to be falsely decreased in lipemic samples and should be interpreted with caution. [facility] 25-OH Vitamin D Total 70.5 ng/mL Normal 30.0-100.0 [facility] Comment on above: Order Comment: Vitam in D values have been shown to be falsely decreased in lipemic samples and should be interpreted with caution. Result Comment: <10 Deficiency 10-29 Insufficiency 30-100 Optimal Level >100 Possible Toxicity Performed By: #### D 25OH #### [facility] (DEFAULT) [address] [address] Comp Metabol,Fastingon 09-21 Albumin [Mass/Vol] 4.4 g/dL Normal 3.5-5.2 [facility] Comment on above: Performed By: #### C MPF #### [facility] [address] [place] [address] [place] [address] Furniture Finisher Helper: Maikel Henry MD Albumin/Glob Ratio 1.8 Normal 1.0-2.5 [facility] Comment on above: Performed By: #### C MPF #### [facility] [address] [place] [address] Furniture Finisher Helper: Maikel Henry MD Alkaline Phos 68 U/L Normal 35-104 [facility] Comment on above: Performed By: #### C MPF #### [facility] [address] [place] [address] Furniture Finisher Helper: Maikel Henry MD ALT [Catalytic activity/Vol] 38 U/L High 5-33 [facility] Comment on above: Performed By: #### C MPF #### [facility] [address] [place], [place] [phone] Furniture Finisher Helper: Maikel Henry MD Anion gap [Moles/Vol] 9 mmol/L Normal 9-17 [facility] Comment on above: Performed By: #### C MPF #### [facility] [address] [place], [place] [address]34[address] Furniture Finisher Helper: Maikel Henry MD AST [Catalytic activity/Vol] 29 U/L Normal <32 [facility] Comment on above: Performed By: #### C MPF #### [facility] [address] [place], [place] [phone] Furn[employer] Finisher Helper: Maikel Henry MD Bilirubin [Mass/Vol] 0.4 mg/dL Normal 0.3-1.2 [facility] Comment on above: Performed By: #### C MPF #### [facility] [address] [place], [place] [phone] [employer] Finisher Helper: Maikel Henry MD BUN/CRE Ratio 10 Normal 9-20 [facility] Comment on above: Performed By: #### C MPF #### [facility] [address] [place], [place] [phone] Furniture Finisher Helper: Maikel Henry MD Calcium [Mass/Vol] 9.6 mg/dL Normal 8.6-10.4 [facility] Comment on above: Performed By: #### C MPF #### [facility] [address] [place], [place] [phone] Furniture Finisher Helper: Maikel Henry MD Chloride [Moles/Vol] 104 mmol/L Normal 98-107 [facility] Comment on above: Performed By: #### C MPF #### [facility] [address] [place], [place] [phone] Furniture Finisher Helper: Maikel Henry MD CO2 [Moles/Vol] 28 mmol/L Normal 20-31 [facility] Comment on above: Performed By: #### C MPF #### [facility] [address] [place] [address] Furniture Finisher Helper: Maikel Henry MD Creatinine [Mass/Vol] 0.84 mg/dL Normal 0.50-0.90 [facility] Comment on above: Performed By: #### C MPF #### [facility] [address] [place] [address] Furniture Finisher Helper: Maikel Henry MD GFR/1.73 sq M.predicted among non-blacks MDRD (S/P/Bld) [Vol rate/Area] mL/min/{1.73_m2} Normal >60 [facility] Comment on above: Result Comment: Effective [...] secretion. Performed By: #### C MPF #### [facility] [address] [place] [address] Furniture Finisher Helper: Maikel Henry MD Glucose [Mass/Vol] 96 mg/dL Normal 70-99 [facility] Comment on above: Performed By: #### C MPF #### [facility] [address] [place] [address] Furniture Finisher Helper: Maikel Henry MD Potassium [Moles/Vol] 4.1 mmol/L Normal 3.7-5.3 [facility] Comment on above: Performed By: #### C MPF #### [facility] [address] [place] [address] Furniture Finisher Helper: Maikel Henry MD Protein [Mass/Vol] 6.8 g/dL Normal 6.4-8.3 [facility] Comment on above: Performed By: #### C MPF #### [facility] [address] [place] [address] Furniture Finisher Helper: Maikel Henry MD Sodium [Moles/Vol] 141 mmol/L Normal 135-144 [facility] Comment on above: Performed By: #### C MPF #### [facility] [address] [place] [address] Furniture Finisher Helper: Maikel Henry MD Urea nitrogen [Mass/Vol] 8 mg/dL Normal 6-20 [facility] Comment on above: Performed By: #### C MPF #### [facility] [address] [place] [address] Furniture Finisher Helper: Maikel Henry MD Comprehensive Metabolic Pane l, Fastingon 09-21-2022 Albumin [Mass/Vol] 4.4 g/dL 3.5 - 5.2 g/dL [facility] Albumin/Globulin [Mass ratio] 1.8 {ratio} 1.0 - 2.5 [facility] ALP (Bld) [Catalytic activity/Vol] 68 U/L 35 - 104 U/L [facility] ALT [Catalytic activity/Vol] 38 U/L High 5 - 33 U/L [facility] Anion gap [Moles/Vol] 9 mmol/L 9 - 17 mmol/L [facility] AST [Catalytic activity/Vol] 29 U/L NINF - 32 U/L [facility] Bilirubin [Mass/Vol] 0.4 mg/dL 0.3 - 1 .2 mg/dL [facility] Calcium [Mass/Vol] 9.6 mg/dL 8.6 - 10. 4 mg/dL [facility] Chloride [Moles/Vol] 104 mmol/L 98 - 10 7 mmol/L [facility] CO2 [Moles/Vol] 28 mmol/L 20 - 31 mmol/L [facility] Creatinine [Mass/Vol] 0.84 mg/dL 0.50 - 0.90 mg/dL [facility] GFR/1.73 sq M.predicted MDRD (S/P/Bld) [Vol rate/Area] - PINF [facility] Comment on above: Effective Jul 13, 2022 [...] [Mass/Vol] 96 mg/dL 70 - 99 mg/dL [facility] Interpretation and review of laboratory results Abnormal [facility] Potassium [Moles/Vol] 4.1 mmol/L 3.7 - 5.3 mmol/L [facility] Protein [Mass/Vol] 6.8 g/dL 6.4 - 8.3 g/dL [facility] Sodium [Moles/Vol] 141 mmol/L 135 - 144 mmol/L [facility] Urea nitrogen (BldV) [Mass/Vol] 8 mg/dL 6 - 20 mg/dL [facility] Urea nitrogen/Creatinine (Bld) [Mass ratio] 10 9 - 20 [facility] Lipid Prof, Fastingon 2021 Cholesterol [Mass/Vol] 172 mg/dL Normal <200 [facility] Comment on above: Result Comment: Cholesterol Guidelines: <200 Desirable 200-240 Borderline >240 Undesirable Performed By: #### L IPRF #### [employer] [facility] [place], [place] [id number] Furniture Finisher Helper: Dino Miller MD Cholesterol in HDL [Mass/Vol] 50 mg/dL Normal >40 [facility] Comment on above: Result Comment: HDL Guidelines: <40 Undesirable 40-59 Borderline >59 Desirable Performed By: #### L IPRF #### [employer] [address] [place] [address] Furniture Finisher Helper: Dino Miller MD Cholesterol in LDL [Mass/Vol] 71 mg/dL Normal 0-130 [facility] Comment on above: Result Comment: LDL Guidelines: <100 Desirable 100-129 Near to/above Desirable 130-159 Borderline >159 Undesirable Direct (measured) LDL and calculated LDL are not interchangeable tests. Performed By: #### L IPRF #### [employer] [address] [place], [place] [id number] Furniture Finisher Helper: Dino Miller MD Cholesterol.total/Chol esterol in HDL [Mass ratio] 3.4 {ratio} Normal <5 [facility] Comment on above: Performed By: #### L IPRF #### [employer] [address] [place], [place] [phone] Furniture Finisher Helper: Dino Miller MD Triglyceride,Fasting 255 mg/dL High <150 [facility] Comment on above: Result Comment: Triglyceride Guidelines: <150 Desirable 150-199 Borderline 200-499 High >499 Very high Based on AHA Guidelines for fasting triglyceride, July 2012. Performed By: #### L IPRF #### [employer] [address] [place] [id number] Furniture Finisher Helper: Dino Miller MD Lipid, Fastingon 09-21-2022 Cholesterol [Mass/Vol] 172 mg/dL NINF - 200 mg/dL [facility] [employer] Comment on above: Cholesterol Guidelines: <200 Desirable 200-240 Borderline >240 Undesirable Cholesterol in HDL [Mass/Vol] 50 mg/dL 40 - PINF mg/dL [facility] [employer] Comment on above: HDL Guidelines: <40 Undesirable 40-59 Borderline >59 Desirable Cholesterol in LDL [Mass/Vol] 71 mg/dL 0 - 130 mg/dL [facility] [employer] Comment on above: LDL Guidelines: <100 Desirable 100-129 Near to/above Desirable 130-159 Borderline >159 Undesirable Direct (measured) LDL and calculated LDL are not interchangeable tests. Cholesterol.total/Chol esterol in HDL [Mass ratio] 3.4 {ratio} NINF - 5 [facility] [employer] Interpretation and review of laboratory results Abnormal [facility] [employer] Triglyceride, Fasting 255 mg/dL High NINF - 150 mg/dL [facility] [employer] Comment on above: Triglyceride Guidelines: <150 Desirable 150-199 Borderline 200-499 High >499 Very high Based on AHA Guidelines for fasting triglyceride, July 2012. [facility] XR ABDOMEN (KUB) (SINGLE AP [...] DO 04/17/22 Final result Normal [facility] XR ABDOMEN (KUB) (SINGLE AP VIEW)on 11-22-2020 1. Left nephrolithiasis. Calcification in the right kidney seen on a prior CT is not visible radiographically. [facility] Phone: EXAMINATION: ONE SUPINE XRAY VIEW(S) OF [...] the colon. Status post L5-S1 posterior fusion. [facility] Phone: Al, Mhpn Incoming Radiant Results From [employer] - 11/22/2020 12:46 PM EST EXAMINATION: ONE [...] a prior CT is not visible radiographically. [facility] Work Phone: Glucose, Fastingon 0 Glucose [Mass/Vol] 97 mg/dL 70 - 99 mg/dL [place] Lipid, Fastingon 09-12-2020 Cholesterol [Mass/Vol] 247 mg/dL High <200 [place] Comment on above: Cholesterol Guidelines: <200 Desirable 200-240 Borderline >240 Undesirable Cholesterol in HDL [Mass/Vol] 59 mg/dL >40 [place] Comment on above: HDL Guidelines: <40 Undesirable 40-59 Borderline >59 Desirable Cholesterol in LDL [Mass/Vol] 137 mg/dL High 0 - 130 mg/dL [place] Comment on above: LDL Guidelines: <100 Desirable 100-129 Near to/above Desirable 130-159 Borderline >159 Undesirable Direct (measured) LDL and calculated LDL are not interchangeable tests. Cholesterol in VLDL [Mass/Vol] NOT REPORTED High 1 - 30 mg/dL [place] Cholesterol.total/Chol esterol in HDL [Mass ratio] 4.2 {ratio} <5 [place] Interpretation and review of laboratory results Abnormal [place] Triglyceride, Fasting 257 mg/dL High <150 [place] Comment on above: Triglyceride Guidelines: <150 Desirable 150-199 Borderline 200-499 High >499 Very high Based on AHA Guidelines for fasting triglyceride, July 2012. COVID-19on 08-20-2020 SARS-CoV-2 Not Detected Not Detected [place] Comment on above: The specimen is NEGATIVE for SARS-CoV-2, the novel coronavirus associated with COVID-19. A negative result does not rule out COVID-19. This test has been authorized by the FDA under an Emergency Use Authorization (EUA) for use by authorized laboratories. [employer] SARS-CoV-2 Reagents for [employer] are designed to detect the virus that causes COVID-19 in patients with signs and symptoms of infection who are suspected of COVID-19. An individual without symptoms of COVID-19 and who is not shedding SARS-CoV-2 virus would expect to have a negative (not detected) result in this assay. Fact sheet for Healthcare Providers: https://www.[employer].gov/media/336765/download Fact sheet for Patients: https://www.fda.gov/media/302327/download METHODOLOGY: RT-PCR SARS-CoV-2 [place], [place] SARS-CoV-2, Rapid [place] Source .NASOPHARYNGEAL SWAB [place] Basic Metabolic Panelon Anion gap [Moles/Vol] 11 mmol/L 9 - 17 mmol/L [place] Bun/Cre Ratio 17 [place] Calcium [Mass/Vol] 9.3 mg/dL 8.6 - 10. 4 mg/dL [place] Chloride [Moles/Vol] 103 mmol/L 98 - 10 7 mmol/L [place] CO2 [Moles/Vol] 25 mmol/L 20 - 31 mmol/L [place] Creatinine [Mass/Vol] 0.84 mg/dL 0.5 - 0.9 mg/dL [place] GFR >60 >60 mL/min [place] GFR Non- >60 >60 mL/min [place] Glucose [Mass/Vol] 121 mg/dL High 70 - 99 mg/dL [place] Interpretation and review of laboratory results Abnormal [place] Potassium [Moles/Vol] 3.9 mmol/L 3.7 - 5.3 mmol/L [place] Sodium [Moles/Vol] 139 mmol/L 135 - 144 mmol/L [place] Urea nitrogen [Mass/Vol] 14 mg/dL 6 - 20 mg/dL [place] CBC Auto Differentialon Basophils (Bld) [#/Vol] 0.06 10*3/uL [place] Basophils/100 WBC (Bld) 1 % 0 - 2 % [place] Differential Type NOT REPORTED [place] Eosinophils (Bld) [#/Vol] 0.17 10*3/uL [place] Eosinophils/100 WBC (Bld) 3 % 1 - 4 % [place] Erythrocyte distribution width (RBC) [Ratio] 12.8 % 11.8 - 14.4 % [place] Hematocrit (Bld) [Volume fraction] 43.8 % 36.3 - 47.1 % [place] Hemoglobin (Bld) [Mass/Vol] 14.3 g/dL 11.9 - 15.1 g/dL [place] Immature granulocytes (Bld) [#/Vol] 10*3/uL [place] Immature granulocytes (Bld) [#/Vol] 0 % 0 [place] Lymphocytes (Bld) [#/Vol] 2.06 10*3/uL [place] Lymphocytes/100 WBC (Bld) 36 % 24 - 43 % [place] MCH (RBC) [Entitic mass] 31.4 pg 25.2 - 33.5 pg [place] MCHC (RBC) [Mass/Vol] 32.6 g/dL 28.4 - 34.8 g/dL [place] MCV (RBC) [Entitic vol] 96.3 fL 82.6 - 102.9 fL [place] Monocytes (Bld) [#/Vol] 0.47 10*3/uL [place] Monocytes/100 WBC (Bld) 8 % 3 - 12 % [place] Platelet mean volume (Bld) [Entitic vol] 9.1 fL 8.1 - 13.5 fL [place] Platelets (Bld) [#/Vol] NOT REPORTED [place] Platelets (Bld) [#/Vol] 270 10*3/uL [place] RBC (Bld) [#/Vol] 4.55 10*6/uL 3.95 - 5.1 1 m/uL [place] RBC morphology finding Nom (Bld) NOT REPORTED [place] Segmented neutrophils/100 WBC (Bld) 52 % 36 - 65 % [place] Segs Absolute 2.89 [place] WBC (Bld) [#/Vol] 5.7 10*3/uL [place] WBC (Bld) [#/Vol] 0.0 10*3/uL 0.0 per 10 0 WBC [place] WBC Morphology NOT REPORTED [place] Metabolic Panelon 08-13-2020 GFR/1.73 sq M predicted among non-blacks MDRD (S/P/Bld) [Vol rate/Area] [place], [place] Comment on above: Stage 1: Some [...] body mass. Additional eGFR calculator available at: http://www.[employer]/multiple_crcl_2012.htm Urinalysis with Microscopico n 08-13-2020 Amorphous, UA NOT REPORTED None [place], [place] Bacteria, UA TRACE Abnormal None [place] Bilirubin Urine Negative NEGATIVE [place] Casts UA NOT REPORTED /LPF [place] Color, UA YELLOW YELLOW [place], [place] Crystals, UA NOT REPORTED None /HPF [place] Epithelial Cells UA 0 TO 2 [place], [place] Glucose, Ur Negative NEGATIVE [place] Interpretation and review of laboratory results Abnormal [place] Ketones Ql (U) Negative NEGATIVE [place] Leukocyte esterase Test strip Ql (U) Negative NEGATIVE [place] Mucus, UA NOT REPORTED None [place] Nitrite, Urine Negative NEGATIVE [place] Other Observations UA NOT REPORTED NOT REQ. M [facility], [place] pH, UA 6.5 [facility], [place] Protein (U) [Mass/Vol] Negative NEGATIVE [facility], [place] RBC (U) [#/Vol] 0 TO 2 [facility] [place] Renal Epithelial, UA NOT REPORTED 0 /HPF Me [facility], [place] Specific [place], UA 1.015 [facility], [place] Trichomonas, UA NOT REPORTED None [facility] [place] Turbidity UA CLEAR CLEAR [facility], [place] Urinalysis Comments NOT REPORTED [facility], [place] Urine Hgb Negative NEGATIVE [place] Urobilinogen, Urine Normal Normal [facility], [place] WBC, UA 2 TO 5 [facility], [place] Yeast, UA NOT REPORTED None [facility], [place] - [place] COVID-19 PCRon 08-10-2020 SARS-CoV-2, PASTORA Not Detected Normal Not Detected [facility] Comment on above: Result Comment: This nucleic acid amplification test was developed and its performance characteristics determined by [employer]. Nucleic acid amplification tests include PCR and [...] assay. Performed By: #### C VDPCR #### [facility] [address] [place] [address] Lashae Flores 08-03-2020 Persistent finding consistent with presence of calculus within the upper pole of the left kidney, unchanged when compared to 01/30/2020 as described above. [place] EXAMINATION: ONE SUPINE XRAY VIEW(S) OF [...] with fusion procedure at the L5-S1 level. [place], [place] Al, pn Incoming Radiant Results From [employer] - 08/03/2020 7:45 PM EDT EXAMINATION: ONE [...] when compared to 01/30/2020 as described above. [place] XR ABDOMEN (KUB) (SINGLE AP VIEW)on 02-01-2020 The distal left ureteral calcifications appear to have been removed when compared to the CT exam. A left renal calculus is re-identified. [place] EXAMINATION: ONE SUPINE XRAY VIEW(S) OF [...] removed when compared to the CT exam. [place] Al, pn Incoming Radiant Results From [employer] - 02/01/2020 6:57 AM EDT EXAMINATION: ONE [...] exam. A left renal calculus is re-identified. [place] MATTHEW DIGITAL DIAGNOSTIC W OR WO [...] patient at the time of service. A pharmaceutical service representative from the radiology department will be contacting your office and assisting the patient in getting appropriate follow-up. [place] EXAMINATION: DIAGNOSTIC DIGITAL RIGHT BREAST MAMMOGRAM, [...] linear distribution. No associated mass or distortion. [place] Al, pn Incoming Radiant Results From [employer] - 01/08/2020 10:03 AM EDT EXAMINATION: DIAGNOSTIC [...] patient at the time of service. A pharmaceutical service representative from the radiology department will be contacting your office and assisting the patient in getting appropriate follow-up. [place] MATTHEW DIGITAL SCREEN W OR WO C AD BILATERALon 12-24-2019 1. Calcifications in the right lower-inner quadrant, middle third depth. Recommend magnification views. 2. No mammographic evidence of malignancy in the left breast. BIRADS: BIRADS - CATEGORY 0 Additional imaging is recommended at this time. OVERALL ASSESSMENT - INCOMPLETE: Need additional imaging evaluation. [place] EXAMINATION: BILATERAL DIGITAL SCREENING MAMMOGRAM, 12/22/2019 [...] the upper breast at about 12 o'clock. [place] Al, Mhpn Incoming Radiant Results From [employer] - 12/24/2019 12:13 PM EDT EXAMINATION: BILATERAL [...] ASSESSMENT - INCOMPLETE: Need additional imaging evaluation. [place] CBC Auto Differentialon 12-09 Basophils (Bld) [#/Vol] 0.05 10*3/uL [place] Basophils/100 WBC (Bld) 0 % 0 - 2 % [place] Differential Type NOT REPORTED [place] Eosinophils (Bld) [#/Vol] 0.10 10*3/uL [place] Eosinophils/100 WBC (Bld) 1 % 1 - 4 % [place] Erythrocyte distribution width (RBC) [Ratio] 12.4 % 11.8 - 14.4 % [place] Hematocrit (Bld) [Volume fraction] 39.2 % 36.3 - 47.1 % [place] Hemoglobin (Bld) [Mass/Vol] 13.0 g/dL 11.9 - 15.1 g/dL [place] Immature granulocytes (Bld) [#/Vol] 0 % 0 [place] Immature granulocytes (Bld) [#/Vol] 0.04 10*3/uL [place] Interpretation and review of laboratory results Abnormal [place] Lymphocytes (Bld) [#/Vol] 1.16 10*3/uL [place] Lymphocytes/100 WBC (Bld) 9 % Low 24 - 43 % [place] MCH (RBC) [Entitic mass] 30.9 pg 25.2 - 33.5 pg [place] MCHC (RBC) [Mass/Vol] 33.2 g/dL 28.4 - 34.8 g/dL [place] MCV (RBC) [Entitic vol] 93.1 fL 82.6 - 102.9 fL [place] Monocytes (Bld) [#/Vol] 0.85 10*3/uL [place] Monocytes/100 WBC (Bld) 7 % 3 - 12 % [place] Platelet mean volume (Bld) [Entitic vol] 9.1 fL 8.1 - 13.5 fL [place] Platelets (Bld) [#/Vol] NOT REPORTED [place] Platelets (Bld) [#/Vol] 263 10*3/uL [place] RBC (Bld) [#/Vol] 4.21 10*6/uL 3.95 - 5.1 1 m/uL [place] RBC morphology finding Nom (Bld) NOT REPORTED [place] Segmented neutrophils/100 WBC (Bld) 83 % High 36 - 65 % [place] Segs Absolute 10.53 High [place] WBC (Bld) [#/Vol] 0.0 10*3/uL 0.0 per 10 0 WBC [place] WBC (Bld) [#/Vol] 12.7 10*3/uL High [place] WBC Morphology NOT REPORTED [place] Comprehensive Metabolic Pane l w/ Reflex to MGon 12-23-2019 Albumin [Mass/Vol] 3.6 g/dL 3.5 - 5.2 g/dL [place] Albumin/Globulin [Mass ratio] 1.2 {ratio} [place] ALP [Catalytic activity/Vol] 70 U/L 35 - 104 U/L [place] ALT [Catalytic activity/Vol] 9 U/L 5 - 33 U/L [place] Anion gap [Moles/Vol] 11 mmol/L 9 - 17 mmol/L [place] AST [Catalytic activity/Vol] 14 U/L <32 [place] Bilirubin Ql (U) 0.49 mg/dL 0.3 - 1.2 mg/dL [place] Bun/Cre Ratio 11 [place] Calcium [Mass/Vol] 8.5 mg/dL Low 8.6 - 10. 4 mg/dL [place], [place] Chloride [Moles/Vol] 98 mmol/L 98 - 10 7 mmol/L [place] CO2 [Moles/Vol] 23 mmol/L 20 - 31 mmol/L [place] Creatinine [Mass/Vol] 0.79 mg/dL 0.5 - 0.9 mg/dL [place] GFR >60 >60 mL/min [place] GFR Non- >60 >60 mL/min [place] Glucose [Mass/Vol] 130 mg/dL High 70 - 99 mg/dL [place] Interpretation and review of laboratory results Abnormal [place] Potassium [Moles/Vol] 3.7 mmol/L 3.7 - 5.3 mmol/L [place] Protein [Mass/Vol] 6.5 g/dL 6.4 - 8.3 g/dL [place] Sodium [Moles/Vol] 132 mmol/L Low 135 - 144 mmol/L [place], [place] Urea nitrogen [Mass/Vol] 9 mg/dL 6 - 20 mg/dL [place], [place] Metabolic Panelon 12-23-2019 GFR/1.73 sq M predicted among non-blacks MDRD (S/P/Bld) [Vol rate/Area] [place], [place] Comment on above: Average GFR for 50-5 9 years old: 93 mL/min/1.73sq m Chronic Kidney Disease: <60 mL/min/1.73sq m Kidney failure: <15 mL/min/1.73sq m eGFR calculated using average adult body mass. Additional eGFR calculator available at: http://www.[employer]/multiple_crcl_2012.htm Stage 1: Some kidney damage normal GFR Stage 2: Mild kidney damage GFR 60-89 Stage 3: Moderate kidney damage GFR 30-59 Stage 4: Severe kidney damage GFR 15-29 Stage 5: Severe kidney damage GFR <15 ESRD - chronic treatment by dialysis or transplant Microscopic Urinalysison Amorphous, UA NOT REPORTED None [place], [place] Bacteria, UA NOT REPORTED None [place] Casts UA NOT REPORTED /LPF [place] Crystals, UA NOT REPORTED None /HPF [place] Epithelial Cells UA 2 TO 5 [place] Mucus, UA NOT REPORTED None [place], [place] Other Observations UA NOT REPORTED NOT REQ. M [place] RBC (U) [#/Vol] 0 TO 2 [place], [place] Renal Epithelial, UA NOT REPORTED 0 /HPF Me [place], [place] Trichomonas, UA NOT REPORTED None [place], [place] WBC, UA 2 TO 5 [place], [place] Yeast, UA NOT REPORTED None [place] - [place] Rapid influenza A/B antigens on 12-23-2019 Direct Exam NEGATIVE for Influenza A + B antigens. PCR testing to confirm this result is available upon request. Specimen will be saved in the laboratory for 7 days. Please call [phone] if PCR testing is indicated. [place] Special Requests NOT REPORTED [place] Specimen Description .NASOPHARYNGEAL SWAB [place] Urinalysis, reflex to micros copicon 12-23-2019 Bilirubin Urine Negative NEGATIVE [facility] [place] Color, UA YELLOW YELLOW [place], [place] Glucose, Ur Negative NEGATIVE [place] Interpretation and review of laboratory results Abnormal [place] Ketones Ql (U) Negative NEGATIVE [place] Leukocyte esterase Test strip Ql (U) MODERATE Abnormal NEGATIVE [place], [place] Nitrite, Urine Negative NEGATIVE [place] pH, UA 7.5 [place], [place] Protein (U) [Mass/Vol] Negative NEGATIVE [place] Specific [place], UA 1.010 [place], [place] Turbidity UA CLEAR CLEAR [place] Urinalysis Comments NOT REPORTED [place] Urine Hgb TRACE Abnormal NEGATIVE [place] Urobilinogen, Urine Normal Normal [place] XR CHEST STANDARD (2 VW)on 0 12-23-2019 Al, [facility] Incoming Radiant Results From [employer] - 12/23/2019 7:17 PM EDT EXAMINATION: TWO XRAY VIEWS OF THE CHEST 12/23/2019 7:03 pm COMPARISON: 03/06/2014 HISTORY: ORDERING SYSTEM PROVIDED HISTORY: fever TECHNOLOGIST PROVIDED HISTORY: fever FINDINGS: There is mild patchy bibasilar airspace disease. Upper lungs are clear and the heart size is normal. No pneumothorax or pleural fluid. No acute bone finding. IMPRESSION: Mild patchy bibasilar airspace disease/pneumonia. [place] Mild patchy bibasilar airspace disease/pneumonia. [place] EXAMINATION: TWO XRAY VIEWS OF THE CHEST 12/23/2019 7:03 pm COMPARISON: 03/06/2014 HISTORY: ORDERING SYSTEM PROVIDED HISTORY: fever TECHNOLOGIST PROVIDED HISTORY: fever FINDINGS: There is mild patchy bibasilar airspace disease. Upper lungs are clear and the heart size is normal. No pneumothorax or pleural fluid. No acute bone finding. [facility] XR ABDOMEN (KUB) (SINGLE AP VIEW)on 12-19-2019 Fluoroscopic evaluation during left ureteral stent placement. [facility] [place] EXAMINATION: ONE SUPINE XRAY VIEW(S) OF THE ABDOMEN 12/19/2019 2:10 pm COMPARISON: CT abdomen and pelvis performed 12/17/2019. HISTORY: ORDERING SYSTEM PROVIDED HISTORY: left HLL TECHNOLOGIST PROVIDED HISTORY: left HLL FINDINGS: Fluoroscopic evaluation was performed during left ureteral stent placement. 8 fluoroscopic images were obtained with a fluoroscopic time of 0.1 minutes. No radiologist was present for this procedure. [facility] [place] [facility], pn Incoming Radiant Results From [employer] - 12/19/2019 2:20 PM EDT EXAMINATION: ONE [...] Fluoroscopic evaluation during left ureteral stent placement. [facility] EKG 12 Leadon 12-18-2019 Atrial Rate 67 BPM [facility], [place] P [place] 33 degrees [facility], [place] P-R Interval 138 ms [facility], [place] Q-T Interval 432 ms [facility] QRS Duration 94 ms [facility], [place] QTc Calculation (Bazett) 456 ms [facility], [place] R [place] 32 degrees [facility], [place] T [place] 40 degrees [facility], [place] Ventricular Rate 67 BPM [facility], [place] Normal sinus rhythm Normal ECG When compared with ECG of 06-MAR-2014 10:53, No significant change was found Confirmed by FANI HOUSER ([id number]) on 12/18/2019 4:56:04 PM [facility], [place] Al, Mhpn Incoming Ekg Results From [employer] - 12/18/2019 4:56 PM EDT Normal sinus rhythm Normal ECG When compared with ECG of 06-MAR-2014 10:53, No significant change was found Confirmed by FANI HOUSER ([id number]) on 12/18/2019 4:56:04 PM [place], [place] CBC Auto Differentialon 03-0 Basophils (Bld) [#/Vol] 0.09 10*3/uL [place] Basophils/100 WBC (Bld) 1 % 0 - 2 % [place] Differential Type NOT REPORTED [place] Eosinophils (Bld) [#/Vol] 0.30 10*3/uL [place] Eosinophils/100 WBC (Bld) 3 % 1 - 4 % [place] Erythrocyte distribution width (RBC) [Ratio] 12.5 % 11.8 - 14.4 % [place] Hematocrit (Bld) [Volume fraction] 43.8 % 36.3 - 47.1 % [place] Hemoglobin (Bld) [Mass/Vol] 14.5 g/dL 11.9 - 15.1 g/dL [place] Immature granulocytes (Bld) [#/Vol] 0 % 0 [place] Immature granulocytes (Bld) [#/Vol] 0.04 10*3/uL [place] Lymphocytes (Bld) [#/Vol] 2.78 10*3/uL [place] Lymphocytes/100 WBC (Bld) 25 % 24 - 43 % [place] MCH (RBC) [Entitic mass] 30.8 pg 25.2 - 33.5 pg [place] MCHC (RBC) [Mass/Vol] 33.1 g/dL 28.4 - 34.8 g/dL [place] MCV (RBC) [Entitic vol] 93.0 fL 82.6 - 102.9 fL [place] Monocytes (Bld) [#/Vol] 0.62 10*3/uL [place], [place] Monocytes/100 WBC (Bld) 6 % 3 - 12 % [place] Platelet mean volume (Bld) [Entitic vol] 9.6 fL 8.1 - 13.5 fL [place] Platelets (Bld) [#/Vol] NOT REPORTED [place] Platelets (Bld) [#/Vol] 318 10*3/uL [place] RBC (Bld) [#/Vol] 4.71 10*6/uL 3.95 - 5.1 1 m/uL [place] RBC morphology finding Nom (Bld) NOT REPORTED [place] Segmented neutrophils/100 WBC (Bld) 65 % 36 - 65 % [place] Segs Absolute 7.26 [place] WBC (Bld) [#/Vol] 0.0 10*3/uL 0.0 per 10 0 WBC [place] WBC (Bld) [#/Vol] 11.1 10*3/uL [place] WBC Morphology NOT REPORTED [place] ABDOMEN PELVIS W IV CONTR Gab[place] 12-17-2019 2 obstructing calculi within the distal left ureter measuring 5.8 x 4.2 mm and 5.3 x 3.5 mm. Moderate left-sided hydronephrosis and hydroureter and delayed contrast enhancement of the left kidney as compared to the right. No evidence for bowel obstruction or inflammation. No free intraperitoneal air or fluid. Status post cholecystectomy. [place] Al, Mhpn Incoming Radiant Results From [employer] - 12/17/2019 1:12 AM EST EXAMINATION: CT [...] intraperitoneal air or fluid. Status post cholecystectomy. [facility], [place] EXAMINATION: CT OF THE ABDOMEN AND PELVIS [...] No lymphadenopathy within the abdomen or pelvis. [place] Comprehensive Metabolic Pane l w/ Reflex to MGon 12-17-2019 Albumin [Mass/Vol] 4.5 g/dL 3.5 - 5.2 g/dL [place] Albumin/Globulin [Mass ratio] 1.6 {ratio} [place] ALP [Catalytic activity/Vol] 66 U/L 35 - 104 U/L [place], [place] ALT [Catalytic activity/Vol] 14 U/L 5 - 33 U/L [place] Anion gap [Moles/Vol] 15 mmol/L 9 - 17 mmol/L [place] AST [Catalytic activity/Vol] 31 U/L <32 [place] Bilirubin Ql (U) 0.23 mg/dL Low 0.3 - 1.2 mg/dL [place] Bun/Cre Ratio 19 [place], [place] Calcium [Mass/Vol] 9.3 mg/dL 8.6 - 10. 4 mg/dL [place] Chloride [Moles/Vol] 99 mmol/L 98 - 10 7 mmol/L [place] CO2 [Moles/Vol] 24 mmol/L 20 - 31 mmol/L [place] Creatinine [Mass/Vol] 0.83 mg/dL 0.5 - 0.9 mg/dL [place] GFR >60 >60 mL/min [place], [place] GFR Non- >60 >60 mL/min [place] Glucose [Mass/Vol] 140 mg/dL High 70 - 99 mg/dL [place], [place] Interpretation and review of laboratory results Abnormal [place] Potassium [Moles/Vol] 4.2 mmol/L 3.7 - 5.3 mmol/L [place] Protein [Mass/Vol] 7.4 g/dL 6.4 - 8.3 g/dL [place] Sodium [Moles/Vol] 138 mmol/L 135 - 144 mmol/L [place] Urea nitrogen [Mass/Vol] 16 mg/dL 6 - 20 mg/dL [place] Lactic Acidon 12-17-2019 Interpretation and review of laboratory results Abnormal [place] Lactate [Moles/Vol] 2.9 mmol/L High 0.5 - 2. 2 mmol/L [place] Lactic acid, plasmaon 2019 Lactate [Moles/Vol] 2.1 mmol/L 0.5 - 2. 2 mmol/L [place] Lactic Acid, Whole Blood NOT REPORTED 0.7 - 2.1 mmol/L [place] Lipaseon 12-17-2019 Lipase [Catalytic activity/Vol] 23 U/L 13 - 60 U/L [place] Metabolic Panelon 12-17-2019 GFR/1.73 sq M predicted among non-blacks MDRD (S/P/Bld) [Vol rate/Area] [place] Comment on above: Average GFR for 50-5 9 years old: 93 mL/min/1.73sq m Chronic Kidney Disease: <60 mL/min/1.73sq m Kidney failure: <15 mL/min/1.73sq m eGFR calculated using average adult body mass. Additional eGFR calculator available at: http://www.Intervention Insights.Diamond Kinetics/multiple_crcl_2012.htm Stage 1: Some kidney damage normal GFR Stage 2: Mild kidney damage GFR 60-89 Stage 3: Moderate kidney damage GFR 30-59 Stage 4: Severe kidney damage GFR 15-29 Stage 5: Severe kidney damage GFR <15 ESRD - chronic treatment by dialysis or transplant Microscopic Urinalysison Amorphous, UA NOT REPORTED None [place], [place] Bacteria, UA TRACE Abnormal None [place], [place] Casts UA NOT REPORTED /LPF [place] Crystals, UA NOT REPORTED None /HPF [place], [place] Epithelial Cells UA 2 TO 5 [place], [place] Interpretation and review of laboratory results Abnormal [place] Mucus, UA NOT REPORTED None [place], [place] Other Observations UA NOT REPORTED NOT REQ. M [place], [place] RBC (U) [#/Vol] None [place], [place] Renal Epithelial, UA NOT REPORTED 0 /HPF [place], [place] Trichomonas, UA NOT REPORTED None [place], [place] WBC, UA 2 TO 5 [place], [place] Yeast, UA NOT REPORTED None [place], [place] - [place] Urinalysis, reflex to micros copicon 12-17-2019 Bilirubin Urine Negative NEGATIVE [place], [place] Color, UA YELLOW YELLOW [place], [place] Glucose, Ur Negative NEGATIVE [place] Interpretation and review of laboratory results Abnormal [place], [place] Ketones Ql (U) Negative NEGATIVE [place], [place] Leukocyte esterase Test strip Ql (U) TRACE Abnormal NEGATIVE [place], [place] Nitrite, Urine Negative NEGATIVE [place], [place] pH, UA 6.5 [place], [place] Protein (U) [Mass/Vol] Negative NEGATIVE [place], [place] Specific Tich[place], UA 1.010 [place], [place] Turbidity UA CLEAR CLEAR [place], [place] Urinalysis Comments NOT REPORTED [place], [place] Urine Hgb Negative NEGATIVE [facility] [place] Urobilinogen, Urine Normal Normal [facility] Otheron 11-15-2019 Direct Exam Negative [facility] Phone: Vaginitis DNA Probeon 2019 Direct Exam Method of testing is a DNA probe intended for detection and identification of Suki species, Gardnerella vaginalis, and Trichomonas vaginalis nucleic acid in vaginal fluid specimens from patients with symptoms of vaginitis/vaginosis. [facility] Phone: Special Requests NOT REPORTED [facility] Phone: Specimen Description .VAGINA [employer] Phone: GLUCOSEon 09-06-2019 Glucose [Mass/Vol] 98 mg/dL Normal 65-99 [facility] Comment on above: Result Comment: Perf ormed at [place] [address] Pathology [facility], [place]. [address] [place] [address] CLIA No. [id number] CAP Accreditation No. [id number] Almond Roaster: Fuentes Stevens M.D. LIPID PANEL WITH REFLEX TO Ana M MARTINEZ LDLon 09-06-2019 Cholesterol [Mass/Vol] 182 mg/dL Normal 150-200 [facility] Cholesterol in LDL/Cholesterol in HDL [Mass ratio] 1.4 Normal [facility] Cholesterol.total/Chol esterol in HDL [Mass ratio] 2.8 {ratio} Normal 1.0-5.0 [facility] Comment on above: Result Comment: Test performed at [facility] [address] [place] [address] CLIA Number [id number] ------ HDL-CHOL 65 mg/dL Normal >39 [facility] Comment on above: Result Comment: HDL <40 mg/dL - High Risk HDL > or = 40mg/dL- Desirable HDL >60 mg/dL - Negative Risk LDL-CHOL, CALCULATED 89 mg/dL Normal <130 Path [facility] Comment on above: Result Comment: LDL <100 mg/dL - Desirable LDL >160 mg/dL - High Risk Triglyceride [Mass/Vol] 140 mg/dL Normal 27-150 [facility] VLDL-CHOL, CALCULATED 28 mg/dL Normal 0-30 [facility] [facility] Vital Signs Date Time Vital Sign Value Performing Clinician Danei phily 07-05-2023 08:34-0400 Body mass index (BMI) [Ratio] 34.87 kg/m2 Georgiana Stasik PAC Work Phone: [facility] 07-05-2023 08:34-0400 Body temperature 98.2 [degF] [employer] PAC Work Phone: [facility] 07-05-2023 08:34-0400 Body weight 110.22 kg Georgiana Stasik PAC Work Phone: [facility] 07-05-2023 08:34-0400 Diastolic blood pressure 66 mm[Hg] Georgiana Stasik PAC Work Phone: [facility] 07-05-2023 08:34-0400 Heart rate 57 /min Georgiana Stasik PAC Work Phone: [facility] 07-05-2023 08:34-0400 Respiratory rate 16 /min Georgiana Stasik PAC Work Phone: [facility] 07-05-2023 08:34-0400 SaO2% (BldA) [Mass fraction] 96 % Georgiana Stasik PAC Work Phone: [phone] [place] [address] 07-05-2023 08:34-0400 Systolic blood pressure 132 mm[Hg] Georgiana Stasik PAC Work Phone: [phone] [place] [address] 01-12-2023 14:51-0400 Body mass index (BMI) [Ratio] 35.73 kg/m2 Georgiana Stasik PAC Work Phone: 1(228)[phone] [place] [address] 01-12-2023 14:51-0400 Body temperature 98.6 [degF] Georgiana Stasik PAC Work Phone: 6(617)978-488724 [place] [address] 01-12-2023 14:51-0400 Body weight 112.95 kg Georgiana Stasik PAC Work Phone: 9(433)[phone] [place] [address] 01-12-2023 14:51-0400 Diastolic blood pressure 85 mm[Hg] Georgiana Stasik PAC Work Phone: 3(487)973-330424 [place] [address] 01-12-2023 14:51-0400 Heart rate 84 /min Georgiana Stasik PAC Work Phone: 6(783)923-254624 [place] [address] 01-12-2023 14:51-0400 Respiratory rate 16 /min Georgiana Stasik PAC Work Phone: 1(375)185-880724 [place] [address] 01-12-2023 14:51-0400 SaO2% (BldA) [Mass fraction] 96 % Georgiana Stasik PAC Work Phone: 1([phone])[phone] [place] [address] 01-12-2023 14:51-0400 Systolic blood pressure 138 mm[Hg] Georgiana Stasik PAC Work Phone: [phone])240-714424 [place] [address] 06-30-2022 09:00-0400 Body mass index (BMI) [Ratio] 33.26 kg/m2 Samantha Hendricks MD Work Phone: [phone])[phone] [place] [address] 06-30-2022 09:00-0400 Body temperature 98.29 [degF] Samantha Hendricks MD Work Phone: [facility] 06-30-2022 09:00-0400 Body weight 105.14 kg Samantha Hendricks MD Work Phone: [facility] 06-30-2022 09:00-0400 Diastolic blood pressure 61 mm[Hg] Samantha Hendricks MD Work Phone: [facility] 06-30-2022 09:00-0400 Heart rate 75 /min Samantha Hendricks MD Work Phone: [facility] 06-30-2022 09:00-0400 Respiratory rate 16 /min Samantha Hendricks MD Work Phone: [facility] 06-30-2022 09:00-0400 SaO2% (BldA) [Mass fraction] 97 % Samantha Hendricks MD Work Phone: [facility] 06-30-2022 09:00-0400 Systolic blood pressure 111 mm[Hg] Samantha Hendricks MD Work Phone: [facility] 04-07-2022 16:04-0400 Body mass index (BMI) [Ratio] 33.26 kg/m2 Flores Lyles MD Work Phone: [facility] 04-07-2022 16:04-0400 Body temperature 98.71 [degF] Flores Lyles MD Work Phone: [facility] 04-07-2022 16:04-0400 Body weight 105.14 kg Flores Lyles MD Work Phone: [facility] 04-07-2022 16:04-0400 Diastolic blood pressure 74 mm[Hg] Flores Lyles MD Work Phone: [facility] 04-07-2022 16:04-0400 Heart rate 91 /min Flores Lyles MD Work Phone: [facility] 04-07-2022 16:04-0400 Respiratory rate 16 /min Flores Lyles MD Work Phone: [facility] 04-07-2022 16:04-0400 SaO2% (BldA) [Mass fraction] 94 % Flores Lyles MD Work Phone: [facility] 04-07-2022 16:04-0400 Systolic blood pressure 138 mm[Hg] Flores Lyles MD Work Phone: [facility] 08-27-2020 15:00-0500 BP Diastolic 69 mm[Hg] [facility] [place] 08-27-2020 15:00-0500 BP Systolic 130 mm[Hg] Paramjit [facility]winNetronome Systems[facility] [place] 08-27-2020 15:00-0500 Pulse (Heart Rate) 63 /min [facility] [place] 08-27-2020 15:00-0500 Pulse Oximetry 97 % [facility] [place] 08-27-2020 15:00-0500 Respiratory Rate 16 /min [facility] 08-27-2020 14:30-0500 Body Temperature 98.49 [degF] [facility] 08-27-2020 12:30-0500 BMI (Body Mass Index) 31.57 kg/m2 [facility] 08-27-2020 12:30-0500 Body weight 99.79 kg [facility] 08-27-2020 12:30-0500 Height 177.8 cm [facility] [place] 12-23-2019 20:49-0400 BP Diastolic 62 mm[Hg] [facility] [place] 12-23-2019 20:49-0400 BP Systolic 126 mm[Hg] [facility] [place] 12-23-2019 20:49-0400 Pulse (Heart Rate) 62 /min [facility], [place] 12-23-2019 20:49-0400 Pulse Oximetry 92 % Lowell Moore [facility] , [place] 12-23-2019 20:49-0400 Respiratory Rate 18 /min Lowell Moore [facility] 12-23-2019 20:46-0400 Body Temperature 98.71 [degF] Lowell Moore [facility] 12-19-2019 14:52-0400 BP Diastolic 73 mm[Hg] Paramjit Mcarthur [facility] 12-19-2019 14:52-0400 BP Systolic 141 mm[Hg] Paramjit Lopezgrand [facility] 12-19-2019 14:52-0400 Pulse (Heart Rate) 67 /min Paramjit Mcarthur [facility], [place] 12-19-2019 14:52-0400 Pulse Oximetry 98 % Paramjit Mcarthur [facility] 12-19-2019 14:52-0400 Respiratory Rate 18 /min Paramjit Mcarthur [facility], [place] 12-19-2019 14:12-0400 Body Temperature 97.5 [degF] Paramjit [facility]grand [facility], [place] 12-19-2019 12:16-0400 BMI (Body Mass Index) 32.14 kg/m2 Paramjti Dunne [facility], [place] 12-19-2019 12:16-0400 Body weight 101.61 kg Paramjit Mcarthur [facility] 12-19-2019 12:16-0400 Height 177.8 cm Paramjit Mcarthur [facility] 12-17-2019 04:16-0400 BP Diastolic 68 mm[Hg] [facility] , [place] 12-17-2019 04:16-0400 BP Systolic 122 mm[Hg] [facility] , [place] 12-17-2019 04:01-0400 Pulse [facility]ximetry 97 % [facility] [place] 12-16-2019 23:32-0500 Body Temperature 97.59 [degF] [facility] [place] 12-16-2019 23:32-0500 Pulse (Heart Rate) 72 /min [facility] [place] [place] 12-16-2019 23:32-0500 Respiratory Rate 17 /min [facility] [place] Encounters Encounter Date Encounter Type Care Provider Facility Start: 09-28-2023 End: 09-28-2023 Office outpatient visit 25 minutes Ariane Dawson MD Work Phone: [facility] [place] Comment on above: OAG (open angle glau [...] HOLM Work Phone: [facility] Comment on above: Ductal carcinoma in [...] Start: 01-19-2023 End: 01-22-2023 ambulatory ARIANE OLIVAS [facility] Start: 01-19-2023 End: 01-21-2023 Subsequent hospital visit by physician [facility] Ultrasound Room 2 [facility] Comment on above: Elevated LFTs; Other fatigue; Weight gain; Ductal carcinoma in situ of right breast Start: 01-12-2023 ambulatory ARIANE OLIVAS Facility:[facility] Start: 01-12-2023 ambulatory ARIANE OLIVAS Facility:[facility] Start: 01-12-2023 End: 01-12-2023 Office outpatient visit 25 minutes Georgiana HOLM Work Phone: [facility] Comment on above: Other fatigue (Prima ry Dx); Weight gain; Ductal carcinoma in situ (DCIS) of right breast Start: 09-21-2022 End: 09-22-2022 ambulatory ARIANE OLIVAS [facility] Start: 09-21-2022 Encounter for genera l adult medical examination without abnormal findings [facility] Start: 09-21-2022 End: 09-21-2022 Patient encounter status Ariane Olivas MD Work Phone: [facility] Start: 09-21-2022 End: 09-21-2022 Subsequent hospital visit by physician Ariane Olivas MD Work Phone: [facility] Comment on above: Encounter for well a dult exam without abnormal findings; Wellness examination Start: 06-30-2022 End: 06-30-2022 Office outpatient visit 25 minutes Samantha Hendricks MD Work Phone: [facility] Comment on above: Ductal carcinoma in situ (DCIS) of right breast (Primary Dx) Start: 04-17-2022 End: 04-20-2022 ambulatory ARIANE OLIVAS [facility] Start: 04-17-2022 End: 04-19-2022 Subsequent hospital visit by physician Ariane Olivas MD Work Phone: [facility] Radiology Start: 04-07-2022 End: 04-08-2022 Office outpatient visit 25 minutes Flores Lyles MD Work Phone: Department of Radiation Oncology Comment on above: Ductal carcinoma in situ (DCIS) of right breast (Primary Dx) Start: 11-22-2020 End: 11-24-2020 Subsequent hospital visit by physician Seamus Vargas Dr Room 2 [facility] Comment on above: Renal calculus Start: [...] by physician Seamus Xr Dr Room 4 [facility] Comment on above: Renal stone Start: 01-30-2020 End: 02-01-2020 Subsequent hospital visit by physician Seamus Vargas Dr Room 4 [facility] Radiology Comment on above: Ureteral calculus Start: 01-08-2020 End: 01-10-2020 Subsequent hospital visit by physician Seamus Gen Radiologist [facility] Mammography Comment on above: Breast calcification , right Start: 12-23-2019 End: 12-23-2019 Emergency department patient visit Lowell Moore Work Phone: [facility] ED Comment on above: Fever, unspecified f ever cause (Primary Dx); Pneumonia due to organism Start: 12-22-2019 End: 12-24-2019 Subsequent hospital visit by physician Seamus Mammography [facility] Comment on above: Screening mammogram, encounter for Start: 12-19-2019 End: 12-19-2019 Subsequent hospital visit by physician Paramjit Mcarthur Work Phone: [facility] OR Start: 12-18-2019 End: 12-18-2019 Subsequent hospital visit by physician Ariane QUÑIONEZ EKG Comment on above: Ureteral stone with hydronephrosis Start: 12-16-2019 End: 12-17-2019 Emergency department patient visit Asad Dotson Work Phone: [facility] ED Comment on above: Kidney stone [...] Phone: Start: 09-21-2022 Comprehensive metabo lic panel rAiane Olivas MD Work Phone: Start: 11-22-2020 Radiologic [...] Start: 12-23-2019 Iaadiadoo influenza [employer] Work Phone: Start: 12-23-2019 Urinalysis microscopic only Lowell E [employer] Work Phone: Start: 12-23-2019 Urnls dip stick/tabl et rgnt auto w/o microscopy Lowell E [employer] Work Phone: Start: 12-23-2019 Blood count complete auto&auto difrntl wbc Lowell E [employer] Work Phone: Start: 12-22-2019 Screening digital br east tomosynthesis bi Georgina Burrell Work Phone: Start: 12-19-2019 Radiologic exam abdo men 1 view Paramjit Mendietaabigailyari Work Phone: Start: 12-18-2019 Ecg routine ecg w/le ast 12 lds w/i&r Jus Torres Work Phone: Start: 12-18-2019 EKG REPORT Hpf Scanni ng Start: 12-17-2019 Assay of lactate Asad [employer] Work Phone: Start: 12-17-2019 Urinalysis microscopic only Asad [employer] Work Phone: Start: 12-17-2019 Urnls dip stick/tabl et rgnt auto w/o microscopy Asad A Mauri Work Phone: Start: 12-17-2019 Ct abdomen & pelvis w/contrast material Asad [employer] Work Phone: Start: 12-17-2019 Assay of lipase [...] cancer screen colonoscopy Colon cancer screen colonoscopy [facility] Work Phone: Start: 06-29-2026 Screening for malign ant neoplasm of colon [facility] [employer] Start: 09-21-2025 Diabetes screen Diabetes screen [facility] [employer] Start: 09-12-2025 Lipid panel Lipid screen [facility] [place] Start: 09-10-2024 Diabetes screen Diabetes screen [facility] [employer] Start: 09-06-2024 Lipid panel Lipid screen [place] Start: 09-06-2024 Lipid screen Lipid screen [facility] Work Phone: Start: 08-25-2024 DTaP/Tdap/Td vaccine (3 - Td or Tdap) DTaP/Tdap/Td vaccine (3 - Td or Tdap) [facility] [employer] Start: 08-25-2024 DTaP/Tdap/Td vaccine (3 - Td) DTaP/Tdap/Td vaccine (3 - Td) [employer] Work Phone: Start: 08-25-2024 DTaP/Tdap/Td vaccine (4 - Td or Tdap) DTaP/Tdap/Td vaccine (4 - Td or Tdap) [facility] [employer] Start: 08-25-2024 Tetanus vaccination TETANUS [facility] Start: 02-01-2024 End: 02-01-2024 Patient encounter procedure 02/01/2024 3:00 PM EDT Office Visit [facility] [address], [address] [place] [address] Samantha Hendricks MD [address], [address] [place] [address] [facility] Start: 01-21-2024 End: 01-21-2024 Patient encounter procedure 01/21/2024 11:15 AM EDT Office Visit [facility] [place] [address] [place] [phone] Ariane Dawson MD [address] [place] [address] [facility] [place] Start: 01-14-2024 Depression Monitoring Depression Mon [employer] [facility] [employer] Start: 01-13-2024 Thyroid stimulating hormone measurement TSH 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 Comment on above: Expected: 08/04/2023 (Approximate), Expires: 08/04/2024 Start: 07-27-2023 End: 07-27-2023 Patient encounter procedure 07/27/2023 10:45 AM EDT Office Visit [facility] [place] [address] [place] [address] Ariane Dawson MD [address] [place] [address] [place] [address] [facility] [place] Start: 06-28-2023 End: 06-28-2023 Patient encounter procedure [facility] Start: 06-11-2023 Influenza vaccination INFLUENZA VACC INE (#1) [facility] Start: 04-21-2023 End: 04-21-2023 Patient encounter procedure 04/21/2023 Office Visit Urology [facility] Start: 03-03-2023 End: 03-03-2023 Patient encounter procedure 03/03/2023 Office Visit Internal Medicine Ariane Olivas MD [address] [place] [id number] Ariane Olivas MD Start: 01-01-2023 Screening for malign ant neoplasm of breast Breast cancer screen [facility] Start: 10-27-2022 Depression Screen Depression Screen [facility] Start: 09-10-2022 Lipid panel Lipids [facility] Start: 08-31-2022 End: 08-31-2022 Patient encounter procedure 08/31/2022 Office Visit Internal Medicine Ariane Olivas MD [address] [place] [id number] Ariane Olivas MD Start: 08-08-2022 COVID-19 VACCINE (5 - Booster for Pfizer series) COVID-19 VACCINE (5 - Booster for Pfizer series) [facility] Start: 06-30-2022 End: 06-30-2022 Patient encounter procedure 06/30/2022 Office Visit Oncology Samantha Hendricks MD [address], [address] [place] [address] [facility] Start: 06-11-2022 Influenza vaccination O [facility] Start: 04-21-2022 End: 04-21-2022 Patient encounter procedure 04/21/2022 Office Visit Urology Seng Suárez, ANUSHAC [address] [place] [address] [facility] Start: 01-07-2022 Breast cancer screen Breast cancer s [place] Start: 12-31-2021 Screening for malign ant neoplasm of breast [facility] Start: 12-31-2021 Screening mammography MAMMOGRA M SCREENING DISCUSSION [facility] Start: 12-21-2021 Breast cancer screen Breast cancer s [place], [place] Start: 10-01-2021 Screening for malign ant neoplasm of breast Breast cancer screen [facility] Work Phone: Start: 09-12-2021 Lipid panel Lipid screen [facility] Work Phone: Start: 08-29-2021 End: 08-29-2021 Office Visit 08/29/2021 Office Visit Internal Medicine Ariane Olivas MD [address], [place] [address] Ariane Olivas MD Start: 01-07-2021 Screening for malign ant neoplasm of breast Breast cancer screen [place], [place] Start: 11-28-2020 End: 11-28-2020 Office Visit 11/28/2020 Office Visit Urology Jus Torres, STATION EXAMINER - ELECTRIC FURNACE OPERATOR [address] [place] [address] [facility] Start: 08-28-2020 End: 08-28-2020 Office Visit 08/28/2020 Office Visit Internal Medicine Ariane Olivas MD [address], [place] [address] [phone] Ariane Olivas MD Start: 08-27-2020 End: 08-27-2020 Hospital Encounter [facility] Comment on above: ESWL EXTRACORPOREAL SHOCK WAVE LITHOTRIPSY Start: 08-05-2020 End: 08-05-2020 Office Visit [facility] Start: 03-01-2020 Breast cancer screen Breast cancer s [facility] Work Phone: Start: 02-26-2020 End: 02-26-2020 Office Visit 02/26/2020 Office Visit Internal Medicine Ariane Olivas MD [address], [place] [address] [phone] Ariane Olivas MD Start: 02-06-2020 End: 02-06-2020 Office Visit 02/06/2020 Office Visit Obstetrics and Gynecology Georgina Burrell, KD - CNM [address] [facility] [place] [id number] [facility] Start: 02-01-2020 End: 02-01-2020 Office Visit 02/01/2020 Office Visit Urology Paramjit Mcarthur MD [address], [address] [place] [address] [phone] [facility] Start: 01-09-2020 End: 01-09-2020 Ancillary Procedure [facility] Start: 12-21-2019 End: 12-21-2019 Office Visit 12/21/2019 Office Visit Urology Jus Torres, STATION EXAMINER - ELECTRIC FURNACE OPERATOR [address] [place] [id number] [facility] Start: 12-12-2019 End: 12-12-2019 Office Visit 12/12/2019 Office Visit Obstetrics and Gynecology Georgina Burrell, STATION EXAMINER - CNM [address] [place] [address] [facility] Start: 2012 Zoster vaccine hzv l kenny for subcutaneous use ZOSTER (SHINGLES) VACCINE (1 of 2) [facility] Start: 12-30-2007 Colonoscopy COLORECTAL CAN CER SCREENING DISCUSSION [facility] Start: 12-30-2007 Screening for malign ant neoplasm of colon [facility] Start: 2002 Diabetes screen Diabetes screen [place], [place] Start: 2002 Fasting lipid profile LIPID SCREENIN G [facility] Start: 2002 Lipid panel LIPID SCREENING [facility] Start: 12-30-1983 Screening for malign ant neoplasm of cervix CERVICAL CANCER SCREENING DISCUSSION [facility] Start: 1981 Third diphtheria, tetanus and acellular pertussis (DTaP) vaccination TDAP (ADULT) [facility] Start: 1980 Tetanus vaccination TETANUS [facility] Start: 1977 HIV screening HIV SCREENING DISCUSSION [facility] Start: 1968 Pneumococcal 0-64 ye ars Vaccine (1 of 1 - PPSV23) Pneumococcal 0-64 years Vaccine (1 of 1 - PPSV23) [facility] Work Phone: Start: 1968 PNEUMOCOCCAL VACCINE SERIES (1 - PCV) PNEUMOCOCCAL VACCINE SERIES (1 - PCV) [facility] Start: 1962 Hepatitis B vaccination HEP B VACCINE (1 of 3 - 3-dose series) [facility] Start: 1962 Hepatitis C antibody , confirmatory test HEPATITIS C VIRUS SCREENING [facility] Start: 1962 Hepatitis C screening HEPATITI S C VIRUS SCREENING [facility] End: 12-17-2019 Bacteria identified Cx Nom (U) Urine Culture Microbiology STAT One Time for 1 Occurrences starting 12/17/2019 until 12/17/2019 [place], [place] Comment on above: One Time for 1 Occur rences starting 12/17/2019 until 12/17/2019 Bacteria identified Cx Nom (U) [place] End: 12-23-2019 COVID-19, PCR COVID-19, PCR Lab Routine One Time for 1 Occurrences starting 12/23/2019 until 12/23/2019 [place] Comment on above: One Time for 1 Occur rences starting 12/23/2019 until 12/23/2019 End: 12-23-2019 Culture, Blood 1 Culture, Blood 1 Microbiology STAT One Time for 1 Occurrences starting 12/23/2019 until 12/23/2019 [place] Comment on above: One Time for 1 Occur rences starting 12/23/2019 until 12/23/2019 Culture, Blood 1 Culture, Blood 1 Microbiology STAT 12/23/2019 6:10 PM EDT [place] End: 12-23-2019 Culture, Blood 2 Culture, Blood 2 Microbiology STAT One Time for 1 Occurrences starting 12/23/2019 until 12/23/2019 [place] Comment on above: One Time for 1 Occur rences starting 12/23/2019 until 12/23/2019 Culture, Blood 2 Culture, Blood 2 Microbiology STAT 12/23/2019 6:20 PM EDT [place] End: 08-13-2020 Culture, Urine Culture, Urine Microbiology Routine Renal stone Pre-op testing 1 Occurrences starting 08/13/2020 until 08/13/2020 [place] Comment on above: 1 Occurrences starti ng 08/13/2020 until 08/13/2020 EKG 12 Lead EKG 12 Lead ECG Routine Renal stone Pre-op testing 08/13/2020 10:24 AM EST [place] Initiate Oxygen Ther apy Protocol [place] Comment on above: Daily until disconti nued starting 12/19/2019 Daily until disconti nued starting 12/23/2019 End: 12-23-2019 Lactate, Sepsis Lactate, Sepsis Lab Timed Now Then Every 2hr for 2 Occurrences starting 12/23/2019 until 12/23/2019 [place] Comment on above: Now Then Every 2hr f or 2 Occurrences starting 12/23/2019 until 12/23/2019 Lactate, Sepsis Lactate, Sepsis Lab Today 12/23/2019 6:35 PM EDT [place] Oxygen therapy [[facility] Data Set] Initiate Oxygen Therapy Protocol Respiratory Care Routine Daily until discontinued starting 08/27/2020 [place] Comment on above: Daily until disconti nued starting 08/27/2020 End: 12-23-2019 Respiratory Virus PCR Panel Respiratory Virus PCR Panel Microbiology Routine One Time for 1 Occurrences starting 12/23/2019 until 12/23/2019 [place] Comment on above: One Time for 1 Occur rences starting 12/23/2019 until 12/23/2019 Stone Analysis Stone Analysis Microbiology Routine Release Upon Ordering for 1 Occurrences starting 12/19/2019 [place] Comment on above: Release Upon Orderin g for 1 Occurrences starting 12/19/2019 End: 01-08-2020 US BREAST COMPLETE RIGHT US BREAST COMPLETE RIGHT Imaging Routine Breast calcification, right 1 Occurrences starting 01/08/2020 until 01/08/2020 [place] Comment on above: 1 Occurrences starti ng 01/08/2020 until 01/08/2020 Immunizations Immunization Date Immunization Notes Care Provider Fa [facility] 06-30-2022 Seasonal, quadrivale nt, recombinant, injectable influenza vaccine, preservative free Samantha Hendricks MD Work Phone: [facility] 06-30-2022 influenza virus vaccine, unspecified formulation Georgiana Benítez PAC Work Phone: [facility] 06-23-2022 COVID-19, PFIZER Bivalent BOOSTER, (age 12y+), IM, 30 mcg/0.3 mL dose Ariane Olivas MD Work Phone: [facility] 06-23-2022 COVID-19, PFIZER PUR PLE top, DILUTE for use, (age 12 y+), 30mcg/0.3mL Ariane Olivas MD Work Phone: [facility] Work Phone: 04-08-2022 COVID-19, PFIZER GRA Y top, DO NOT Dilute, (age 12 y+), IM, 30 mcg/0.3 mL Ariane Olivas MD Work Phone: [facility] Work Phone: 08-25-2021 COVID-19, PFIZER PUR PLE top, DILUTE for use, (age 12 y+), 30mcg/0.3mL Ariane Olivas MD Work Phone: [facility] Work Phone: 08-15-2021 influenza, injectabl e, quadrivalent, preservative free Ariane Olivas MD Work Phone: [facility] Work Phone: 08-15-2021 influenza virus vaccine, unspecified formulation Flores Lyles MD Work Phone: [facility] 01-17-2021 COVID-19, PFIZER PUR PLE top, DILUTE for use, (age 12 y+), 30mcg/0.3mL Ariane Olivas MD Work Phone: [facility] Work Phone: 12-27-2020 COVID-19, PFIZER PUR PLE top, DILUTE for use, (age 12 y+), 30mcg/0.3mL Ariane Olivas MD Work Phone: [facility] Work Phone: 07-23-2020 Influenza, injectabl e, Madin Kimberly Canine Kidney, preservative free, quadrivalent [address], [place] 07-23-2020 influenza, injectabl e, quadrivalent, preservative free [facility], [place] 08-20-2019 influenza virus vaccine, unspecified formulation [facility] Work Phone: 08-20-2019 Influenza, injectabl e, Madin Kimberly Canine Kidney, preservative free, quadrivalent [facility] Work Phone: 08-20-2019 influenza, injectabl e, quadrivalent, contains preservative Ari[facility] 09-23-2018 zoster vaccine recombinant [facility] Work Phone: 08-10-2018 Influenza Vaccine, unspecified formulation Ariane [facility] Phone: 07-31-2018 Influenza, injectabl e, Madin Kimberly Canine Kidney, preservative free, quadrivalent Ariane [facility] Phone: 07-08-2018 zoster vaccine recombinant [facility] Phone: 06-09-2018 zoster vaccine recombinant [facility] Phone: 07-28-2017 influenza virus vaccine, unspecified formulation [address] [employer] Phone: 07-28-2017 influenza, injectabl e, quadrivalent, preservative free Ariane [facility] Phone: 07-24-2017 Influenza Vaccine, unspecified formulation Ariane [facility] Phone: 07-24-2017 Influenza, injectabl e, Madin Kimberly Canine Kidney, preservative free, quadrivalent Ariane [facility] Phone: 08-21-2016 Influenza Vaccine, unspecified formulation Ariane [facility] 08-17-2015 influenza virus vaccine, unspecified formulation [address] 08-17-2015 influenza, injectabl e, quadrivalent, preservative free Ariane [facility] Phone: 09-05-2014 influenza virus vaccine, unspecified formulation Ariane [facility] 08-25-2014 diphtheria, tetanus toxoids and acellular pertussis vaccine [facility] Phone: 08-19-2013 influenza, high dose seasonal, preservative-free Ariane [facility] Phone: 09-14-2012 tetanus toxoid, redu stefanie diphtheria toxoid, and acellular pertussis vaccine, adsorbed [facility] Phone: Payers Date Payer Category Payer Unknown [id number] 2022 Unknown [id number] 2019 Unknown [id number] 2018 Unknown BCBS [place] - [place] P PO xxxxxxxxxxxx 2018-Present [address] [place] [address] xxxxxxxxxxxx [id number] 1962 Unknown [id number] 1962 Unknown [id number] [id number] 1962 Unknown [id number] [id number] 1962 Unknown [id number] [id number] 1962 Unknown [id number] [id number] 1962 Unknown [id number] [id number] 1962 Unknown [id number] [id number] 1962 Unknown [id number] [id number] 1962 Unknown [id number] [id number] 1962 Unknown [id number] [id number] 1962 Unknown [id number] [id number] 1962 Unknown [id number] [id number] 1962 Unknown [id number] [id number] 1962 Unknown [id number] [id number] 1959 Unknown [id number] Social History Date Type Detail Facility Start: 11-14-2019 End: 07-27-2023 Tobacco smoking status [facility] Former smoker [facility] Phone: End: 10-11-1990 History of tobacco use Current smoker [facility] Phone: Start: 11-14-2019 End: 07-05-2023 Cigarettes smoked current (pack per day) - Reported [facility] Phone: Start: 11-14-2019 End: 01-13-2023 Alcohol intake Current non-drinker of alcohol (finding) [facility] Phone: Start: 09-04-2019 History SDOH Social Connections Living 3 [facility] Phone: Start: 09-04-2019 End: 01-13-2023 History SDOH Stress 1 [facility] Phone: Start: 09-04-2019 End: 01-13-2023 History SDOH Financial 5 [facility] Phone: Start: 09-04-2019 End: 01-13-2023 History SDOH IPV Fear 2 [facility] Phone: Start: 11-14-2019 Alcohol Comment rare [employer] [facility] Work Phone: Start: 1960 Sex Assigned At Not on file [employer] Phone: Exposure to SARS-CoV -2 (event) Unable to assess [facility] [place], [place] Start: 02-01-2020 End: 07-27-2023 Tobacco use and exposure Never used [facility] Exposure to SARS-CoV -2 (event) Not sure [facility] [place], [place] Start: 01-31-2020 History SDOH Alcohol Comment very rarely [facility] Start: 01-31-2020 End: 01-12-2023 Tobacco Comment 30 years ago [facility] End: 10-11-1990 History of tobacco use Cigarette Smoker [facility]Y [facility] Work Phone: Start: 06-07-2020 End: 07-05-2023 Tobacco use panel [facility] (I/We) worried wheth er (my/our) food would run out before (I/we) got money to buy more. Never true [facility] In the past 12 month s, has lack of transportation kept you from medical appointments or from getting medications? No [facility] Start: 02-26-2020 Gender identity Identifies as female gender (finding) [facility] Start: 09-28-2023 Alcohol intake Current drinke r of alcohol (finding) [facility] Medical Equipment Procedure Code Equipment Code Equipment Original Text Equipment Identifier Dates Unknown [id number] Comment on above: Description: Camposoriana slime Unknown [id number] Comment on above: Description: Camposoriana slime Unknown [id number] Comment on above: Description: In spin e; 4 screws Unknown [id number] Comment on above: Description: In spin e; 4 screws Stent Uret Hydrp l Coat W/O [id number] Start: 12-19-2019 Clinical Notes 04-07-2022 to [...] ROS: complete review of systems performed by water and fire technician, reviewed by me. Meds; stopped latanoprost [...] check, sooner PRN. documented in this encounter [facility] 07-05-2023 History of Present illness Narrative Impression [...] y.o. female who presents today to the [facility] for follow up. History [...] cm TRV x 1.7 cm CC 01/16/2020 ([id number]) Right breast, 3:00 posterior depth, core biopsy- [...] to the clinic for follow up in [facility]. She reports the following- passed of [place] in February 2023, was found maybe 10 [...] or focal weakness. 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 Para: 2, (30 yo [...] No abnormalities noted. Patient offered a medical application programmer analyst for sensitive exam. declined Imaging Data/Laboratory data: [...] T4FREE 0.97 01/12/2023 Patient offered a medical application programmer analyst for sensitive exam. Pt declined. documented in this encounter [facility] 07-05-2023 Instructions Georgiana Benítez, PAC - [...] your local emergency department. When will my [employer] message be returned? Our providers will do their best to answer your questions quickly. However, there are certain times when you won t get a response. Our providers won t respond to messages on nights, weekends or holidays. [employer] messages are not for urgent issues, and [...] to wait to view your information in [employer] until you speak with your provider. When [...] you @ https://takebackday.cathie.gov under the COLLECTION SITE TIN TIE MACHINE OPERATOR AUTOMATIC tab. Never dispose of un-needed medications down the sink or toilet. Instead, crush the medication and mix with damp coffee grounds or cat litter, place in a sealed plastic freezer bag, and dispose of in your regular trash. 1) MRI Breast due in July 2023 (last one was 07/29/22) 2) Mammogram due on December 2023 (last one 01/04/23) documented in this encounter [facility] 01-12-2023 History of Present illness Narrative Impression [...] y.o. female who presents today to the [facility] for follow up. History [...] cm TRV x 1.7 cm CC 01/16/2020 ([id number]) Right breast, 3:00 posterior depth, core biopsy- [...] mother in law in October 2020 from [place]. The patient otherwise denied any fevers/chills, vision/hearing changes, mouth sores, dysphagia. Denied cough, chest pain, palpitations, abdominal pain or discomfort, bloating, recent nausea or vomiting, diarrhea, black or bloody stools, dysuria or hematuria, or focal weakness. 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 Para: 2, (30 yo [...] No abnormalities noted. Patient offered a medical application programmer analyst for sensitive exam. declined Imaging Data/Laboratory data: [...] T4FREE 0.97 01/12/2023 Patient offered a medical application programmer analyst for sensitive exam. Pt declined. documented in this encounter [facility] 01-12-2023 Instructions MIHAI Salguero - 01/12/2023 [...] the take-back program closest to you @ https://takebackday.[place].gov under the COLLECTION SITE TIN TIE MACHINE OPERATOR AUTOMATIC tab. Never dispose of un-needed medications down [...] 1-2 weeks documented in this encounter [facility] 06-30-2022 History of Present illness Narrative Patient offered a medical application programmer analyst for sensitive exam. Pt declined. Impression and [...] Return in 1 year (on 06/30/2023) for [employer] follow up. Please schedule on Wednesday brain [...] y.o. female who presents today to the [facility] for follow up. History [...] cm TRV x 1.7 cm CC 01/16/2020 ([id number]) Right breast, 3:00 posterior depth, core biopsy- [...] notes occasional pain under her right breast. 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 Para: 2, (30 yo [...] Performance Status [address] Dr. Hendricks acted as application programmer analyst and was present during breast exam General/Constitutional: [...] No abnormalities noted. Patient offered a medical application programmer analyst for sensitive exam. declined Imaging Data/Laboratory data: [...] BILITOTAL, BILIDIRECT No results found for: TSH, [id number], [id number], TSHBASELINE, TSHULTRASEN, T3FREE, [id number], [id number], [id number], T4FREE, TPOAB documented in this encounter [facility] 06-30-2022 Instructions Judah Haywood MD - 06/30/2022 [...] you @ https://takebackday.cathie.gov under the COLLECTION SITE TIN TIE MACHINE OPERATOR AUTOMATIC tab. Never dispose of un-needed medications down [...] of medication. n documented in this encounter [facility] 04-07-2022 Instructions SETH Maza - 04/07/2022 5:01 [...] to see you today and please call [phone] if you have any questions Dr. Flores Lyles MD & SETH Winters [facility] Radiation Oncology [phone] documented in this encounter [facility] 04-07-2022 History of Present illness Narrative [...] 12/02/21: f/[facility]iana [facility]. Decrease tamoxifen to 10 mg d/t increase fatigue. RAFFI. RTC 7 months 01/01/22: Bilateral screening mammogram wHilary Beckett ([facility]): no mammographic evidence of malignancy. BIRADS 2- [...] to be fitted for bras and a electrotyper from [facility]. She notes she has good ROM in [...] mg, oral, Daily. 01/25/2020 Juana Burrell. Local SENIOR CONSTRUCTION MANAGER/OB office. Patient called asking for referral for [...] left breast. 01/31/2020 New patient visit at [facility]: Dr. Arriola, Dr. Lyles and [...] 10/01/2020 mammogram, 02/06/2020 mammogram, 01/16/2020 mammogram - [facility], 01/08/2020 mammogram, and 12/22/2019 mammogram - [facility]. Two view 3D digital tomosynthesis as well [...] and coordinating care going forward. Sachi Mesa, STATION EXAMINER-ELECTRIC FURNACE OPERATOR [facility] Radiation Oncology [phone] ATTENDING PHYSICIAN ATTESTATION I evaluated this patient [...] Saravia was offered and declined a Medical Crane Service Technician for this exam/procedure/test 04/07/2022. Report given to Sachi Mesa APRN-ELECTRIC FURNACE OPERATOR. Francie Vanegas RN documented in this encounter 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 Diagnosis Encounter for well adult exam without abnormal findings Wellness examination documented in this encounter [facility] [employer] Phone: evaluation note* Diagnosis Other fatigue- Primary Weight gain Abnormal weight gain Ductal carcinoma in situ (DCIS) of right breast 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 Diagnosis OAG (open angle glaucoma) suspect, high risk, bilateral- Primary Age-related nuclear cataract, bilateral Senile nuclear sclerosis Dry eye syndrome of bilateral lacrimal glands Tear film insufficiency, unspecified documented in this encounter [facility] Summary Purpose Family History No Family History Records FoundNo Family History Records FoundNo Family History Records FoundNo Family History Records FoundNo Family History Records Found Advance Directives No Advanced Directives Records FoundDocuments on File Type Date Recorded Patient Drying Tunnel Operator Expl anation ACP-Power of Chemical Etching Processor 07/30/2020 9:51 AM Latest Code Status on File Code Status Date Activated Date Inactivated Comments Full Code 08/27/2020 12:14 PM 08/27/2020 5:32 PM Full Code 12/19/2019 12:14 PM 12/19/2019 5:20 PM Full Code 07/28/2013 11:58 AM 07/30/2013 12:14 PM Documents on File Type Date Recorded Patient Drying Tunnel Operator Expl anation Advance Directives and Living Will Power of Chemical Etching Processor Latest Code Status on File Code Status Date Activated Date Inactivated Comments Full Code 07/28/2013 11:58 AM 07/30/2013 12:14 PM Latest Code Status on File Code Status Date Activated Date Inactivated Comments Full Code 12/19/2019 12:14 PM 12/19/2019 5:20 PM Documents on File Type Date Recorded Patient Drying Tunnel Operator Expl anation Advance Directives and Living Will Power of Chemical Etching Processor Latest Code Status on File Code Status [...] Documents on File Type Date Recorded Patient Drying Tunnel Operator Expl anation ACP-Advance Directive ACP-Power of Chemical Etching Processor ACP-Power of Chemical Etching Processor 07/30/2020 9:51 AM Documents on File Type Date Recorded Patient Drying Tunnel Operator Expl anation ACP-Advance Directive ACP-Power of Chemical Etching Processor ACP-Power of Chemical Etching Processor 07/30/2020 9:51 AM Latest Code Status on File Code Status Date Activated Date Inactivated Comments Full Code 08/27/2020 12:14 PM Full Code 12/19/2019 12:14 PM 12/19/2019 5:20 PM Documents on File Type Date Recorded Patient Drying Tunnel Operator Expl anation ACP-Power of Chemical Etching Processor 07/30/2020 9:51 AM Latest Code Status on [...] sent through Care Everywhere. * Kidney Stone (Guyanese) documented in this encounter* Instructions* Erin Markham [...] flush the urinary tract.) Call Dr. Mcarthur ([phone]) if you develop: Fever over 100 degrees [...] Call Dr. Mcarthur office for follow-up appointment ([phone]). documented in this encounter* Attachments The following attachments cannot be sent through Care Everywhere. * Pneumonia (Guyanese) * Fever: General Info (Guyanese) documented in this encounter* Instructions* Kristal Escalante [...] flush the urinary tract.) Call Dr. Mcarthur ([phone]) if you develop: Fever over 100 degrees [...] Call Dr. Mcarthur office for follow-up appointment ([phone]). documented in this encounter History of Present [...] testing Procedures EKG 12 Lead Jus Torres, STATION EXAMINER - ELECTRIC FURNACE OPERATOR [address] [place] [address] Status Reason Specialty Diagnoses / Procedures Referre d By Contact Referred To Contact Closed Radiology Diagnoses Screening mammogram, encounter for Procedures MATTHEW DIGITAL SCREEN W OR WO CAD BILATERAL HC MAMMOGRAM DIGITAL SCREEN BILAT Georgina Burrell APRN - CNM [address] [place] [address] [address] [place] [id number] [facility] [place] [phone] Status Reason Specialty Diagnoses / Procedures Referred By Contact Referred To Contact Not Required - Recondo Radiology Diagnoses Breast calcification, right Procedures US BREAST COMPLETE RIGHT HC US BREAST COMP Georgina Burrell APRN - CNM [address] [place] [address] [facility] Ultrasound [address] [place], [place] [phone] Status Reason Specialty Diagnoses / Procedures Referre d By Contact Referred To Contact Open Cardiology Diagnoses Renal stone Pre-op testing Procedures EKG 12 Lead Jus Torres APRN - ELECTRIC FURNACE OPERATOR Emily Jonathon [address] [place] [address] Specialty Diagnoses / Procedures Referred By Contac t Referred To Contact Radiology Diagnoses Elevated LFTs Other fatigue Weight gain Ductal carcinoma in situ of right breast Procedures US ABDOMEN LIMITED Georgiana Benítez PA [address] [facility] [address] [place] [address] Referral ID Status Reason Start Date Expiration Date Visits Re quested Visits Authorized [id number] Open 01/14/2023 01/14/2024 1 1 Specialty Diagnoses / Procedures Referred By Contac t Referred To Contact Diagnoses 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, estrogen receptor positive, unspecified laterality Postmenopausal Dense breast Procedures MRI BREAST BILATERAL WITH AND WITHOUT CONTRAST CHG MRI BREAST WITHOUT&WITH CONTRAST W/CAD BILATERAL Georgiana Benítez PAC [address] [facility] [address] [place] [address] Referral ID Status Reason Start Date Expiration Date V isits Requested Visits Authorized [id number] New Request 07/05/2023 07/29/2024 1 1 Specialty Diagnoses / Procedures Referred By Contac t Referred To Contact Diagnoses 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, estrogen receptor positive, unspecified laterality Postmenopausal Dense breast Procedures MAMMO DIAGNOSTIC WITH WARREN BILATERAL Georgiana Benítez PAC [address] [facility] [address] [place] [address] Referral ID Status Reason Start Date Expiration Date V isits Requested Visits Authorized [id number] New Request 07/05/2023 07/29/2024 1 1 Additional Source Comments INFORMATION SOURCE (unrecogn ized section and content) DATE CREATED AUTHOR 09/08/2019 [facility] DATE CREATED AUTHOR AUTHOR'S ORGANIZ ATION 08/15/2020 [facility] DATE CREATED AUTHOR AUTHOR'S ORGANIZ ATION 01/22/2023 [facility] DATE CREATED AUTHOR AUTHOR'S ORGANIZ ATION 07/28/2023 [facility] DATE CREATED AUTHOR AUTHOR'S ORGANIZ ATION 10/22/2023 [facility] Reason for Visit (unrecogniz ed section and content) Reason Comments Abdominal Pain lower Status Reason Specialty Diagnoses / Procedures Referre d By Contact Referred To Contact Diagnoses Left ureteral calculus LEFT URETERAL CALCULUS Procedures MA CYSTO/URETERO W/LITHOTRIPSY &INDWELL STENT INSRT CYSTOSCOPY URETEROSCOPY LASER, HLL Paramjit Mcarthur MD [address] [facility], [address] [place] [address] [facility] Reason Comments Fever started today Generalized Body Aches Post-op Problem cystoscopy on 12/18 w petr Mahoney Status Reason Specialty Diagnoses / Procedures Referre d By Contact Referred To Contact Closed Radiology Diagnoses Screening mammogram, encounter for Procedures MATTHEW DIGITAL SCREEN W OR WO CAD BILATERAL HC MAMMOGRAM DIGITAL SCREEN BILAT Georgina Burrell APRN - CNM [address] [place] [address] [place] [address] [place] [phone] Status Reason Specialty Diagnoses / Procedures Referre d By Contact Referred To Contact Closed Radiology Diagnoses Breast calcification, right Procedures MATTHEW DIGITAL DIAGNOSTIC W OR WO CAD RIGHT MATTHEW DIAGNOSTIC W CAD RIGHT HC MAMMO DGX UNILATERAL INCL CAD IF PERF Georgina Burrell APRN - CNM [address] [place] [address] [address] [place] [address] [address] Status Reason Specialty Diagnoses / Procedures Referred By Contact Referred To Contact Not Required - Recondo Radiology Diagnoses Breast calcification, right Procedures US BREAST COMPLETE RIGHT HC US BREAST COMP Georgina Burrell APRN - CNM [address] [place] [address] [address] [place] [address] [facility] Ultrasound [address] [place] [phone] Status Reason Specialty Diagnoses / Procedures Re ferred By Contact Referred To Contact Diagnoses Renal calculus, left LEFT RENAL CALCULUS Procedures MA FRAGMENT KIDNEY STONE/ ESWL ESWL EXTRACORPOREAL SHOCK WAVE LITHOTRIPSY Paramjit Mcarthur MD [address] [facility], [address] [place] [address] [facility] Reason Comments Follow-up for radiation therap y completed 04/23/2020 for RIGHT sided breast cancer. Reason Comments Follow-up tamoxifen Reason Comments Follow-up Specialty Diagnoses / Procedures Referred By Contnoman t Referred To Contact Radiology Diagnoses Elevated LFTs Other fatigue Weight gain Ductal carcinoma in situ of right breast Procedures US ABDOMEN LIMITED Georgiana Benítez PA [address] [facility] [address] [place] [address] Referral ID Status Reason Start Date Expiration Date Visits Re quested Visits Authorized [id number] Open 01/14/2023 01/14/2024 1 1 Reason Comments Follow-up tamoxifen Care Teams (unrecognized sec tion and content) Senior Network Architect Relationship Specialty Start Date End Date Ariane Olivas MD PCP - General Internal Medicine 01/25/20 Georgina Burrell CNM Certified Nurse Distributor Cleaner 01/25/20 Senior Network Architect Relationship Specialty Start Date End Date Ariane Olivas MD [address] [facility] [place] [address] PCP - General 08/22/12 Senior Network Architect Relationship Specialty Start Date End Date Ariane Olivas MD PCP - General Internal Medicine 01/25/20 Georgina Burrell CNM Certified Nurse Distributor Cleaner 01/25/20 Senior Network Architect Relationship Specialty Start Date End Date Ariane Olivas MD [address] [facility], [place] [address] PCP - General 08/22/12 Senior Network Architect Relationship Specialty Start Date End Date Ariane Olivas MD PCP - General Internal Medicine 01/25/20 Georgina Burrell CNM Certified Nurse Distributor Cleaner 01/25/20 Senior Network Architect Relationship Specialty Start Date End Date Ariane Olivas MD [address] [facility], [place] [address] PCP - General 08/22/12 Senior Network Architect Relationship Specialty Start Date End Date Ariane Olivas MD PCP - General Internal Medicine 01/25/20 Georgina Burrell CNM Certified Nurse Distributor Cleaner 01/25/20 Senior Network Architect Relationship Specialty Start Date End Date Ariane Olivas MD PCP - General Internal Medicine 01/25/20 Georgina Burrell CNM Certified Nurse Distributor Cleaner 01/25/20 FOR RECORDS PERTAINING TO PATIENTS WHO [...] BE BASED ON THE PRIMARY CLINICAL RECORDS. [facility]. provides no warranty or guarantee of the accuracy or completeness of information in this document.
--- NOTE | 2023-11-04 09:47 | P.CN_ITS ---
Consult Note: HPI Data of Consult Patient: known to practice within the last 3 years Requesting Physician: Mariama Tony NP Primary Care Provider: ARIANE OLIVAS Consult Narrative Reason for consult: f/u Narrative: Yumi Saravia a pleasant 62 year old female presents for evaluation and management of chronic low back pain without radiculopathy. Today rating pain 2/10 in low back constantly, pain is worse with pushing pulling standing walking bending twisting, improved with rest and lying down. Patient recently had a bilateral L3/4 L4/5 thermal RFA with 30% ongoing relief. cc:: CC: Mariama Tony NP Review of Systems ROS Status of ROS 10 or more systems reviewed and unremark able except as noted in history and below Musculoskeletal Reports: back pain and joint pain (right SIJ, bilateral knees) PFSH PFSH Medical History H/O malignant neoplasm of breast ?Z85.3 - Personal history of malignant neoplasm of breast (ICD-10) High cholesterol ?E78.00 - Pure hypercholesterolemia, unspecified (ICD-10) Hypertension ?I10 - Essential (primary) hypertension (ICD-10) Surgical History S/P lumbar fusion ?Z98.1 - Arthrodesis status (ICD-10) H/O arthroscopy of knee ?Z98.890 - Other specified postprocedural states (ICD-10) Hx of tonsillectomy ?Z90.89 - Acquired absence of other organs (ICD-10) H/O: hysterectomy ?Z90.710 - Acquired absence of both cervix and uterus (ICD-10) S/P ?Z98.891 - History of uterine scar from previous surgery (ICD-10) S/P breast lumpectomy ?Z98.890 - Other specified postprocedural states (ICD-10) Meds Home Medications and Allergies Home Medications Medication Instructions Recorded Confirmed Type atenolol 25 mg tablet 25 mg PO .hs 04/26/23 09/06/23 History atorvastatin 20 mg tablet (Lipitor) 20 mg PO DAILY 04/26/23 09/06/23 History levothyroxine 50 mcg tablet 50 mcg PO DAILY 04/26/23 09/06/23 History (Euthyrox) milnacipran 50 mg tablet (Savella) 50 mg PO BID 04/26/23 09/06/23 History rizatriptan 10 mg tablet (Maxalt) 10 mg PO Q2H PRN migraine headache 04/26/23 09/06/23 History tamoxifen 20 mg tablet 20 mg PO DAILY 04/26/23 09/06/23 History trazodone 50 mg tablet 50 mg PO .hs 04/26/23 09/06/23 History Allergies Allergy/AdvReac Type Severity Reaction Status Date / Time Sulfa (Sulfonamide Allergy Mild Verified 09/06/23 09:48 Antibiotics) Exam Constitutional Documenting provider has reviewed patient's vital signs: yes Common normals: no apparent distress, oriented x3, healthy appearing, alert and well nourished General appearance: cooperative HENMT Common normals: normocephalic, hearing grossly normal bilaterally and moist oral mucous membranes Head and scalp: normocephalic Eye Common normals: PERRL Pupil: PERRL Neck & C-Spine Common normals: full ROM General: normal visual inspection Chest Common normals: inspection of chest normal Respiratory Common normals: normal respiratory effort, no retractions and no use of accessory muscles Back & Pelvis Lumbar spine/lower back: normal to inspection and straight leg raise negative bilaterally Sacroiliac joints: SI joint(s) abnormal Other: mild pain with facet loading bilateral positive nanette fadir thigh thrust worse on right than left, tender over bilateral PSIS Extremity Common normals: normal to inspection and full ROM Neuro Common normals: oriented x3, CN's II-XII intact bilaterally, moves all extremi ties, no focal motor deficits, no sensory deficits noted and deep tendon reflexes 2+ bilaterally Sensorium/orientation: alert Motor exam: strength 5/5 throughout and no movement abnormalities noted Psych Common normals: mental status grossly normal, thought process normal, cooperative, affect normal, speech normal and activity/motor behavior normal Speech: normal speech Thought process: normal thought process Results Additional Findings Additional findings: I have checked an OARRS report on this patient today and there are no aberrancies noted in the prescribing history.?? A drug screen was completed and reviewed within the last year, and if there has not been a drug screen completed we ordered one today to monitor higher risk, state monitored pain medication use. As part of providing excellent, safe, comprehensive care, the following was completed at our patient's visit: 1. A medication reconciliation and review to ensure accurate knowledge of current/active medications, including asking our patients to inform us about any [id number] medications or herbal remedies/nutritional supplements/alternative remedies. 2. A review to specifically ensure our patients have had annual screening for: elevated body mass index (BMI), tobacco use, screening for depression, and screening for unhealthy alcohol use. When screening is concerning, patients are provided with education and the specific recommendation to discuss the concerning health issue and treatment options with their primary care provider. Assessment and Plan Assessment and Plan (1) Bilateral sacroiliitis: (2) Lumbar spondylosis: (3) Fibromyalgia: (4) Lumbar postlaminectomy syndrome: (5) Lumbago: (6) Myofascial pain: Plan continue PRN tylenol continue f/u with Dr Mclain, finding benefit to gel injections start tizanidine 4-8mg daily PRN myofascial pain going to [place] for 2 months f/u upon return, consider bilateral nerve blocks of nerve innervating SIJ
== END 2023-11-04 09:30 | disposition home or self-care (01) ==
LOC: PM 09:29
PROVIDERS: PCP Internal Medicine; Visit Provider Nurse Practitioner
DX: M46.1 Sacroiliitis, not elsewhere classified (principal); M47.816 Spondylosis without myelopathy or radiculopathy, lumbar region; M79.7 Fibromyalgia; M96.1 Postlaminectomy syndrome, not elsewhere classified; M54.50 Low back pain, unspecified
CPT/HCPCS: G0463